=== PATIENT | male | born 1940 | race Caucasian/White ===

== ENCOUNTER → 2018-10-23 | Outpatient (CLI) | payer MEDICARE ==
--- NOTE | 2018-11-01 09:11 | REP ---
REASON FOR EXAM: Patient presents with a cavitary lesion in the right lung lower lobe. Prior CT examination of the chest from an outside institution of 09/19/2018 showed a 2.3 x 1.6 x 1.7 cm sized irregular somewhat cavitary lesion in the right lower lobe. That examination was reviewed. There are no prior PET/CTs for comparison. After the intravenous administration of 9.1 millicuries of FDG 18 triplane whole body PET/CT was performed from the skull base to the midthigh. The nodule seen in the right lower lobe is intensely hypermetabolic with average SUV values over +16. There are no other areas of abnormal hypermetabolic activity seen in the neck, chest, abdomen, or pelvis. There is evidence of cholelithiasis. This was seen on today's CT and the prior CT. IMPRESSION: The cavitary lesion seen in the right lung lower lobe is hypermetabolic. Infectious versus neoplastic etiology correlate clinically. Electronically Signed by Ubaldo Alejo DO 11/01/2018 11:12 A
== END ==
LOC: M PLARAD 11:53
PROVIDERS: ATTEND Internal Medicine Pulmonary Disease
DX: R91.1 Solitary pulmonary nodule (principal)
CPT/HCPCS: 78815; A9552

== ENCOUNTER → 2018-11-07 | Outpatient (REF) | payer MEDICARE ==
[2018-11-07 18:41] LABS: INR 0.98; PROTHROMBIN TIME 13.1 SECONDS (12.1-14.4)
== END ==
LOC: M LAB REF 17:24
PROVIDERS: ATTEND Internal Medicine Pulmonary Disease
DX: R91.1 Solitary pulmonary nodule (principal)

== ENCOUNTER → 2018-11-25 | Outpatient (CLI) | payer MEDICARE ==
[~2018-11-25] MED LIST: ACET-907 PO; ALEV220T22 PO; AMLO5TAB6 PO; ANOR1AER INH; ATOR1TAB19 PO; ECOT81TA5 PO; FINA5TAB2 PO; GLIM1TAB PO; LIDOCAINE 1% MDV 20ML VIAL As Ordered ONE; LISI-542 PO; METF500T4 PO; VITMTA PO
--- NOTE | 2018-11-25 12:36 | REP ---
POST-BIOPSY CHEST: Post biopsy chest performed status post right lung biopsy. Bibasilar fibroatelectatic changes are noted. There is no pneumothorax status post right lung biopsy. Electronically Signed by Kirit Sommer MD 11/25/2018 04:22 P
--- NOTE | 2018-11-25 17:01 | REP ---
CT-guided right lower lobe lung biopsy The procedure was performed under the direct supervision of Dr. Sommer. The patient has a history of a cavitary lesion in the right lower lung which showed hypermetabolic activity on a previous PET scan dated 10/23/2018. The risks and benefits of the procedure were explained to the patient and informed consent was obtained. The right lower lobe lung nodule was localized using CT guidance. The skin was prepped and draped in a sterile fashion. 1% lidocaine was used as a local anesthetic. Using CT guidance a 19/20 gauge coaxial needle biopsy system was inserted and advanced into the nodule. Five core biopsy samples were obtained and sent to lab. The patient tolerated the procedure well and there were no immediate complications. After the appropriate amount of monitored convalescence the patient was discharged from the department. Reviewed by CHAI Moreno 11/25/2018 04:37 P Electronically Signed by Kirit Sommer MD 11/25/2018 04:53 P
== END ==
LOC: M RADPRO 08:48
PROVIDERS: ATTEND Internal Medicine Pulmonary Disease
DX: C34.91 Malignant neoplasm of unspecified part of right bronchus or lung (principal)

== ENCOUNTER → 2018-12-09 | Outpatient (REF) | payer OTHER ==
[~2018-12-09] MED LIST changes: +FISH120016 PO; -LIDOCAINE 1% MDV 20ML VIAL As Ordered ONE
== END ==
LOC: M LAB LCGH 09:56
PROVIDERS: ATTEND Surgery
DX: Z85.01 Personal history of malignant neoplasm of esophagus (principal)

== ENCOUNTER → 2019-01-16 | Outpatient (CLI) | payer MEDICARE ==
[~2019-01-16] MED LIST changes: +FOLI1TAB11 PO; -GLIM1TAB PO; +GLIM1TAB4 PO; +ISOVUE-370 76% 100ML VIAL (Q9967) As Ordered ONE; +LISI10TA4 PO; +METF-791 PO; -METF500T4 PO; +ONDA8TAB10 PO; +PERCOCET PO; +PROC10TA4 PO; +VARE05TA PO
--- NOTE | 2019-01-17 04:58 | REP ---
Clinical: Malignancy. Technique: Axial contrast enhanced images from the thoracic inlet to the upper abdomen with coronal and sagittal re-formations. Comparison: 09/19/2018, 09/01/2016, 10/20/2013. Findings: The irregular cavitary lesion in the posterior medial right lower lobe has increased in size from prior examinations and currently measures 2.7 cm maximal diameter of (previously measuring 1.7 cm maximal diameter at the same level on 09/19/2018 and is relatively new as compared to 09/01/2016) and again demonstrates irregular wall with small mural soft tissue component. Adjacent small cystic changes and fibroatelectatic changes appear slightly more prominent than prior examination. A 12 mm noncalcified nodule in the posteromedial left lower lobe is identified and remains relatively stable compared to recent prior examination but has obviously increased when compared through 10/20/2013. Chronic interstitial changes along with emphysematous changes including scattered bullae again noted. No effusion. No pneumothorax. Tracheobronchial tree is patent. Reactive mediastinal and right hilar lymph nodes measure up to approximately 17 mm. Mediastinum demonstrates atherosclerotic changes to the thoracic aorta and coronary arteries without aortic aneurysm/dissection or cardiomegaly. No pericardial effusion. Impression: 1. Irregular cavitary lesion in the right lower lobe from prior examination. 2. A 12 mm noncalcified nodule in the left lower lobe progressively increased through 2013. 3. Chronic interstitial changes and emphysematous disease similar to prior examination. No new lesions identified. Electronically Signed by Dionte Mars MD 01/17/2019 04:49 A
== END ==
LOC: M RAD 10:03
PROVIDERS: ATTEND Thoracic Surgery (Cardiothoracic Vascular Surgery)
DX: C34.31 Malignant neoplasm of lower lobe, right bronchus or lung (principal)
CPT/HCPCS: 71260; Q9967

== ENCOUNTER 2019-01-30 08:03 | Day surgery (SDC) | payer MEDICARE ==
[~2019-01-30] VITALS: Ht 177.8 cm; Wt 113.9 kg
[~2019-01-30 08:03] MED LIST changes: -FOLI1TAB11 PO; +GLIM1TAB PO; -GLIM1TAB4 PO; -ISOVUE-370 76% 100ML VIAL (Q9967) As Ordered ONE; -METF-791 PO; +METF500T4 PO; -ONDA8TAB10 PO; -PERCOCET PO; -PROC10TA4 PO
[2019-01-30] MEDS ORDERED: PROPOFOL 200 MG/20 ML VIAL As Ordered ONE (08:35)
[2019-01-30] MEDS ORDERED: LIDOCAINE 2% INJ 100 MG/5 ML SDV (FOR ANES.) As Ordered ONE (08:36)
[2019-01-30] MEDS ORDERED: ROCURONIUM BROMIDE 50 MG/5 ML VIAL As Ordered ONE (08:36)
[2019-01-30] MEDS ORDERED: ONDANSETRON 4MG/2ML VIAL (J2405) As Ordered ONE (08:36)
[2019-01-30] MEDS ORDERED: fentaNYL 100 MCG/2 ML INJECTION (J3010) As Ordered ONE (10:11)
[2019-01-30] MEDS ORDERED: LIDOCAINE 1% SDV INJ 30 ML VIAL As Ordered ONE ×2 (10:20→10:23)
[2019-01-30] MEDS ORDERED: LIDOCAINE VISCOUS 2% SOLN 15ML UDC As Ordered ONE (10:20)
[2019-01-30] MEDS ORDERED: EPINEPHrine 1MG/10ML SYRINGE 1.5IN As Ordered ONE (10:20)
[2019-01-30] MEDS ORDERED: THROMBIN SOLN 20,000 UNITS KIT As Ordered ONE (10:20)
[2019-01-30] MEDS ORDERED: LIDOCAINE 4% TOPICAL SOLN 50 ML BTL As Ordered ONE (10:23)
[2019-01-30] MEDS ORDERED: CETACAINE SPRAY 5GM As Ordered ONE (10:34)
[2019-01-30] MEDS ORDERED: SUGAMMADEX SODIUM 500 MG/5 ML VIAL (BRIDION) As Ordered ONE (10:55)
[2019-01-30] MEDS ORDERED: LR 1,000 ML IV SCH (12:00)
[2019-01-30] MEDS ORDERED: ONDANSETRON 4MG/2ML VIAL (J2405) IV PRN (12:00)
[2019-01-30] MEDS ORDERED: NORCO, ANEXSIA 5/325MG TABLET (HYDROcodone/ACETAMINOPHEN) PO PRN (12:00)
[2019-01-30] MEDS ORDERED: fentaNYL 100 MCG/2 ML INJECTION (J3010) IV PRN (12:00)
--- NOTE | 2019-01-30 12:59 | REP ---
REASON FOR EXAM: Status post bronchoscopy. COMPARISON: 11/25/2018. The technique utilized in obtaining the radiograph has magnified the cardiac silhouette and accentuated the interstitial markings. There is cardiomegaly accentuated by technique. There is evidence of fibrotic change accentuated by technique. There is no evidence of pneumothorax. There are no new abnormal opacities. The pleural angles are sharp. The osseous structures are stable and intact. IMPRESSION: Chronic changes as described above. No evidence of acute cardiopulmonary disease. Electronically Signed by Ubaldo Alejo DO 01/30/2019 01:18 P
[2019-01-30 13:00] VITALS: BP 140/68
[2019-01-31] MEDS ORDERED: LR 1,000 ML IV ONE (07:00)
--- NOTE | 2019-02-01 15:29 | RO ---
DATE OF PROCEDURE: 01/30/2019 PREOPERATIVE DIAGNOSIS: PET positive left hilar lymph node, unknown etiology. POSTOPERATIVE DIAGNOSIS: PET positive left hilar lymph node, unknown etiology. PROCEDURE: Bronchoscopy with airway inspection and biopsy of left hilar lymph node by endobronchial ultrasound (EBUS). SURGEON: Dr. Kirby Ocampo INTERMODAL TRUCK DRIVER: Dr. Ethel Case ANESTHESIA: General. PROCEDURE NOTE: Procedure explained and consent obtained. [place] procedure was followed. The patient was intubated and sedation and pain management was handled by anesthesia. Following intubation, the bronchoscope was introduced into the trachea. Left and right lungs were examined. There was a minimum of secretions. There was striations and pitting. The airways had the appearance of mild bronchiectasis. There was mild extrinsic compression of the right middle lobe. He had no endobronchial lesions. Following inspection, the bronchoscope was withdrawn and the EBUS scope was introduced. A left hilar lymph node was identified and multiple biopsies were taken of the lymph node. Following this, the subcarinal region was inspected. There is a small, less than 1 cm lymph node identified on the right side of the hilum. On the left side, there was a structure seen. It was pulsatile but did not appear to be lymph node. Neither of these findings were biopsied. The EBUS scope was then withdrawn. The conventional bronchoscope was introduced and general airway inspection was done. Hemostasis was observed. The bronchoscope was then withdrawn. Postprocedure x-ray pending. FINDINGS: 1. Striations and pitting. 2. No endobronchial lesions. 3. Mild extrinsic compression of the right middle lobe. 4. Appearance of mild bronchiectasis. SPECIMENS: Left hilar lymph node fine needle aspirate sent to cytology. [facility] [place] [facility]
== END 2019-01-30 13:05 | disposition home or self-care (01) ==
LOC: M SDC 08:03
PROVIDERS: ATTEND Internal Medicine Pulmonary Disease
DX: C34.31 Malignant neoplasm of lower lobe, right bronchus or lung (principal); R06.00 Dyspnea, unspecified; R05 Cough; J43.2 Centrilobular emphysema; F17.218 Nicotine dependence, cigarettes, with other nicotine-induced disorders; I10 Essential (primary) hypertension; E78.5 Hyperlipidemia, unspecified; G47.30 Sleep apnea, unspecified; Z79.899 Other long term (current) drug therapy
CPT/HCPCS: 31652; 71045; 88173; 88305; 88313; J2405; J3010

== ENCOUNTER → 2019-02-20 | Outpatient (CLI) | payer MEDICARE ==
[~2019-02-20] MED LIST changes: +METF-791 PO; -METF500T4 PO; +PERCOCET PO
[2019-02-20 12:01] LABS: HEMATOCRIT 43.4 % (42.0-52.0); HEMOGLOBIN 14.5 g/dl (13.5-17.5); MEAN CORPUSCULAR HEMOGLOBIN 32.5 pg (27.0-33.0); MEAN CORPUSCULAR HGB CONC 33.4 g/dl (32.0-36.5); MEAN CORPUSCULAR VOLUME 97.3 fl (80.0-96.0); PLATELET COUNT, AUTOMATED 343 10^3/uL (150-450); RED BLOOD COUNT 4.46 10^6/uL (4.30-6.10); WHITE BLOOD COUNT 10.6 10^3/uL (4.0-10.0)
[2019-02-20 12:11] LABS: INR 0.99; PARTIAL THROMBOPLASTIN TIME 29.8 SECONDS (25.0-38.4); PROTHROMBIN TIME 12.8 SECONDS (11.8-14.0)
[2019-02-20 12:24] LABS: CALCIUM LEVEL 9.6 MG/DL (8.8-10.2); CREATININE FOR GFR 1.57 MG/DL (0.70-1.30); GLOMERULAR FILTRATION RATE 45.8 (>42); POTASSIUM SERUM 4.6 MEQ/L (3.5-5.1)
[2019-02-20 12:36] LABS: ABG BASE EXCESS -3.5 (-2.0-2.0); ABG HCO3 21.3 MEQ/L (22.0-26.0); ABG O2 SATURATION 96.9 % (95.0-99.0); ABG PARTIAL PRESSURE CO2 37.9 mmHg (35.0-45.0); ABG PARTIAL PRESSURE O2 84.7 mmHg (75.0-100.0); ABG STANDARD HCO3 21.5 MEQ/L (22.0-26.0); ABG TOTAL CO2 22.4 MEQ/L (23.0-31.0); ABG pH (ARTERIAL) 7.367 UNITS (7.350-7.450)
[2019-02-20 13:18] LABS: APPEARANCE, URINE HAZY (CLEAR); BACTERIA, URINE AUTO NEGATIVE (NEGATIVE); BILIRUBIN, URINE AUTO NEGATIVE (NEGATIVE); BLOOD, URINE BLOOD 1+ (NEGATIVE); COLOR, URINE YELLOW (YELLOW); GLUCOSE, URINE (UA) AUTO NEGATIVE (NEGATIVE); KETONE, URINE AUTO NEGATIVE (NEGATIVE); LEUKOCYTE ESTERASE, URINE AUTO NEGATIVE (NEGATIVE); NITRITE, URINE AUTO NEGATIVE (NEGATIVE); PROTEIN, URINE AUTO NEGATIVE (NEGATIVE); RBC, URINE AUTO 5 /HPF (0-3); SPECIFIC GRAVITY URINE AUTO 1.014 (1.002-1.035); SQUAMOUS EPITHELIAL CELL UR AU 0 /HPF (0-6); UROBILINOGEN, URINE AUTO 0.2 mg/dL (0.0-2.0); WBC, URINE AUTO 1 /HPF (0-3)
--- NOTE | 2019-02-20 15:08 | REP ---
Chest x-ray: Two views. History: Lung carcinoma. Comparison study January 30, 2019. Findings: Lungs are somewhat hyperinflated as before. The recently identified cavitary nodule in the right lower lobe is posterior and medial and the superimposed on the right hilus on the frontal view. It is not visualized on the lateral radiograph. Lung winters are otherwise clear. Pleural angles are sharp. Heart is not enlarged. The aorta somewhat tortuous. There is an old healed rib fracture on the left. Impression: Hyperinflation. Otherwise no acute disease visible radiographically. Electronically Signed by Nathan Ramirez MD 02/20/2019 03:20 P
--- NOTE | 2019-02-21 16:47 | ECGEPIP ---
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 Electronically Signed on 02-21-2019 16:47:15 EDT by Trey Hendricks
== END ==
LOC: M ADMPAT 11:18
PROVIDERS: ATTEND Thoracic Surgery (Cardiothoracic Vascular Surgery)
DX: R91.8 Other nonspecific abnormal finding of lung field (principal); C34.90 Malignant neoplasm of unspecified part of unspecified bronchus or lung

== ENCOUNTER 2019-02-24 06:50 | Inpatient (IN) | payer MEDICARE ==
[~2019-02-24] VITALS: Ht 180.3 cm; Wt 113.2 kg
[2019-02-24] VITALS (7 sets, daily range): BP systolic 89–161; BP diastolic 45–65
[~2019-02-24 06:50] MED LIST changes: +LR 1,000 ML IV ONE; +MUPIROCIN 2% OINT 22 GM TUBE TOP ONE; -PERCOCET PO
[2019-02-24] MEDS ORDERED: CETACAINE SPRAY 5GM As Ordered ONE (06:52)
[2019-02-24] MEDS ORDERED: BUPIVACAINE HCL 0.5% 10 ML VIAL As Ordered ONE (06:52)
[2019-02-24] MEDS ORDERED: BUPIVACAINE LIPOSOME/PF 1.3% 20ML VIAL (13.3MG/ML)(EXPAREL)(C9290 PER1MG) As Ordered ONE (06:53)
[2019-02-24] MEDS ORDERED: STERILE TALC POWDER 3GM VIAL As Ordered ONE (06:53)
[2019-02-24] MEDS ORDERED: fentaNYL 250 MCG/5 ML INJECTION (J3010) As Ordered ONE (06:59)
[2019-02-24] MEDS ORDERED: MIDAZOLAM INJ 2 MG/2 ML VIAL (J2250) As Ordered ONE ×2 (07:00→08:15)
[2019-02-24] MEDS ORDERED: dexameTHASONE 4 MG/ML 1ML VIAL (J1100) As Ordered ONE (07:03)
[2019-02-24] MEDS ORDERED: LIDOCAINE 2% INJ 100 MG/5 ML SDV (FOR ANES.) As Ordered ONE (07:03)
[2019-02-24] MEDS ORDERED: ROCURONIUM BROMIDE 50 MG/5 ML VIAL As Ordered ONE ×3 (07:03→11:24)
[2019-02-24] MEDS ORDERED: ONDANSETRON 4MG/2ML VIAL (J2405) As Ordered ONE (07:03)
[2019-02-24] MEDS ORDERED: PROPOFOL 200 MG/20 ML VIAL As Ordered ONE (07:03)
[2019-02-24] MEDS ORDERED: BUPIVACAINE HCL 0.25% 30 ML VIAL As Ordered ONE (07:37)
[2019-02-24] MEDS ORDERED: ACETAMINOPHEN 1000MG 100ML IV BTL (OFIRMEV) (J0131 PER 10MG) As Ordered ONE (07:42)
[2019-02-24] MEDS ORDERED: fentaNYL 100 MCG/2 ML INJECTION (J3010) As Ordered ONE ×2 (08:15→14:13)
[2019-02-24] MEDS: MIDAZOLAM INJ 2 MG/2 ML VIAL (J2250) IV SCH ×2 (08:20→08:22)
[2019-02-24] MEDS: fentaNYL 100 MCG/2 ML INJECTION (J3010) IV SCH ×2 (08:20→08:22)
[2019-02-24] MEDS: MOM 30ML SUSPENSION UDC PO SCH (09:00)
[2019-02-24] MEDS: GLIMEPIRIDE 1 MG TABLET PO SCH (09:00)
[2019-02-24] MEDS ORDERED: ePHEDrine SULFATE 25 MG/5 ML(5MG/ML) SYRINGE As Ordered ONE (10:14)
[2019-02-24] MEDS ORDERED: SUGAMMADEX SODIUM 500 MG/5 ML VIAL (BRIDION) As Ordered ONE (10:29)
[2019-02-24] MEDS ORDERED: KETOROLAC 60 MG/2 ML VIAL (J1885) As Ordered ONE (10:36)
[2019-02-24] MEDS ORDERED: METOCLOPRAMIDE INJ 10MG/2ML VIAL (J2765) IV PRN (11:00)
[2019-02-24] MEDS ORDERED: WALLBOXKEY XX PRN (11:00)
[2019-02-24] MEDS ORDERED: ONDANSETRON 4MG/2ML VIAL (J2405) IV PRN ×3 (11:00→14:30)
[2019-02-24] MEDS ORDERED: EPIDURAL/PCA KEYS XX PRN (11:00)
[2019-02-24] MEDS ORDERED: diphenhydrAMINE INJ 50MG/ML VIAL (J1200) IV PRN (11:00)
[2019-02-24] MEDS ORDERED: NALOXONE INJ 0.4 MG/1 ML VIAL (J2310) IV PRN (11:00)
[2019-02-24] MEDS ORDERED: PHENYLephrine HCL 500 MCG/5 ML (100MCG/ML) SYRINGE (J2370) As Ordered ONE (12:34)
[2019-02-24] MEDS ORDERED: NORCO, ANEXSIA 5/325MG TABLET (HYDROcodone/ACETAMINOPHEN) PO PRN (13:45)
[2019-02-24] MEDS ORDERED: BISACODYL 10 MG SUPP PR PRN (13:45)
[2019-02-24] MEDS ORDERED: PERCOCET 5MG/325MG TAB PO PRN ×3 (13:45→14:30)
[2019-02-24] MEDS ORDERED: LEVALBUTEROL 1.25 MG/0.5 ML CONCENTRATE NEB NEB PRN (13:45)
[2019-02-24] MEDS: LEVALBUTEROL 1.25 MG/0.5 ML CONCENTRATE NEB NEB SCH ×2 (14:00→19:20)
[2019-02-24] MEDS: fentaNYL 100 MCG/2 ML INJECTION (J3010) IV PRN ×4 (14:13→14:28)
[2019-02-24 14:19] LABS: ABG BASE EXCESS -3.1 (-2.0-2.0); ABG HCO3 23.3 MEQ/L (22.0-26.0); ABG O2 SATURATION 97.7 % (95.0-99.0); ABG PARTIAL PRESSURE CO2 46.8 mmHg (35.0-45.0); ABG PARTIAL PRESSURE O2 103.6 mmHg (75.0-100.0); ABG STANDARD HCO3 21.9 MEQ/L (22.0-26.0); ABG TOTAL CO2 24.7 MEQ/L (23.0-31.0); ABG pH (ARTERIAL) 7.315 UNITS (7.350-7.450)
[2019-02-24] MEDS: FENTANYL/BUPIVACAINE/NACL BAG 250 ML EPIDURAL SCH (14:20)
[2019-02-24 14:26] LABS: BASO % 0.2 % (0.0-1.0); EOS % 0.1 % (0.0-3.0); HEMATOCRIT 41.4 % (42.0-52.0); HEMOGLOBIN 13.9 g/dl (13.5-17.5); LYMPH # 0.8 10^3/uL (1.5-5.0); LYMPH % 4.7 % (24.0-44.0); MEAN CORPUSCULAR HEMOGLOBIN 33.8 pg (27.0-33.0); MEAN CORPUSCULAR HGB CONC 33.6 g/dl (32.0-36.5); MEAN CORPUSCULAR VOLUME 100.7 fl (80.0-96.0); MONO # 0.6 10^3/uL (0.0-0.8); MONO % 3.5 % (0.0-5.0); NEUTROPHILS # 14.6 10^3/uL (1.5-8.5); NEUTROPHILS % 90.9 % (36.0-66.0); PLATELET COUNT, AUTOMATED 318 10^3/uL (150-450); RED BLOOD COUNT 4.11 10^6/uL (4.30-6.10); WHITE BLOOD COUNT 16.1 10^3/uL (4.0-10.0)
[2019-02-24] MEDS ORDERED: LR 1,000 ML IV SCH (14:30)
[2019-02-24] MEDS: KCL 20MEQ IN D5/NS 1000ML 1,000 ML IV SCH (14:45)
[2019-02-24 15:07] LABS: CALCIUM LEVEL 8.5 MG/DL (8.8-10.2); CREATININE FOR GFR 2.03 MG/DL (0.70-1.30); GLOMERULAR FILTRATION RATE 34.1 (>42)
[2019-02-24 15:09] LABS: POTASSIUM SERUM 5.8 MEQ/L (3.5-5.1)
[2019-02-24] MEDS ORDERED: NS 500 ML IV SCH (15:30)
[2019-02-24] MEDS: ceFAZolin SOD 1 GM in D5W MINI-BAG PLUS 50 ML IV SCH (16:52)
[2019-02-24] MEDS: FINASTERIDE 5 MG TAB PO SCH (16:53)
[2019-02-24] MEDS: ASPIRIN 81 MG ENTERIC TAB PO SCH (16:53)
[2019-02-24] MEDS: PANTOPRAZOLE 40MG TAB (PROTONIX) PO SCH (16:53)
[2019-02-24] MEDS: ATORVASTATIN 10 MG TAB PO SCH (16:53)
[2019-02-24] MEDS: MULTIVITAMINS/MINERALS THERAP 1 TAB PO SCH (16:53)
[2019-02-24] MEDS: amLODIPine 5 MG TAB PO SCH (16:54)
[2019-02-24] MEDS: LISINOPRIL 10 MG TAB PO SCH (16:54)
--- NOTE | 2019-02-24 17:00 | REP ---
PORTABLE CHEST: AP portable view of the chest was performed. Patient has had right lower lobectomy. Two right chest tubes are in place. There is a tiny right apical pneumothorax. Mild linear atelectatic change is seen in the right lung base. Mild peripheral opacities seen in the right lung base. There are some patchy opacity in the left lung base representing atelectasis or infiltrate. There appears to be a small amount of left pleural fluid or thickening. Heart and mediastinum appear magnified. Electronically Signed by Kirit Sommer MD 02/26/2019 09:32 A
--- NOTE | 2019-02-24 17:48 | RO ---
DATE OF PROCEDURE: 02/24/2019 PREPROCEDURE DIAGNOSIS: Adenocarcinoma right lower lobe. POSTPROCEDURE DIAGNOSIS: Adenocarcinoma right lower lobe. SURGEON: Dr. Marcelino Murillo. PROCEDURE: Right lower lobectomy, mediastinal node dissection and lymphadenectomy, 5 level rib block with bronchoscopy and extensive lysis of adhesions. FINDINGS: The upper lobe was adherent to the chest wall and all of the adhesions had been taken down. The patient is quite obese and the dissection was hindered by the peribronchial and periarterial fat. Therefore the operation took longer than planned, approximately 4 hours. The bronchoscopy revealed normal branch and tracheobronchial tree with a few secretions. I did note that the right middle lobe bronchus was fish mouth. During the procedure I specifically looked for bulky nodes in and around the bronchus and I could not find any. The thoracotomy revealed the above adhesions. He had an apical basilar segmental tumor. The apical basilar segment arterial branch bifurcated into an upper lobe branch and a lower lone branch with the lower lobe branch being taken in development of the fissure. PROCEDURE: Under satisfactory general anesthesia a single lumen tube endotracheal division. Bronchoscope was placed in the tracheobronchial tree with the above results. Noted at the middle lobe bronchus was fish mouth. However there was scant secretions. The patient was then turned into the left lateral decubitus position and prepped and draped in the usual sterile fashion. Posterior lateral incision was made and carried down to the subcutaneous tissue. Areas anterior were sparred. He had copious amount of fat which was really quite fibrotic rather than soft. The chest was entered at the 5th intercostal space. The scopes were placed within the chest cavity and the fissure could be seen and the interspace planned. The major fissure was complete where as the minor fissure was dense adhesions. Some of these adhesions were taken down to expose the confluence fissure to aid in the identification of the location of the pulmonary artery. Dissection was started in the major fissure at the confluences of fissures and the pulmonary artery was eventually found. This was dissected proximally until the apical basilar segmental artery could be found. The middle lobe medial bilateral branch was also noted. Once finding the apical basilar segmental branch it was further dissected with the bifurcated two branches soon after its initial take off from the interlobar pulmonary artery. It was clear that one of these braches went to the upper lobe and the other went to the apical basilar segment. The posterior mediastinal pleura was then dissected which again was quite fibrotic and sticky. The junction of the bronchus intermedius and right upper lobe bronchus was found and noted. A right arm clamp was placed between the two branches as described above and penetrated the posterior mediastinal port. A vessel loop was then placed and the fissure was completed between the two branches. An axillary incision was made in the lower anterior chest suitable for a chest tube placement and a vascular jazmyn was placed through that incision and directed to the lower lobe pulmonary artery which was divided by use of motorized stapling device. Likewise the apical basilar segmental branch was also divided. These were the only arterial branches that were noted. The mediastinal pleural anteriorly was then dissected along with the pulmonary ligament. The inferior pulmonary vein was noted and carefully dissected and surrounded with a vessel loop and divide by use of a vascular stapler. This then left the remainder of the major fissure. The middle lobe bronchus was carefully noted as noted above, I did not find any large nodes that were compressing it. The fissure was therefore completed after diving the inferior pulmonary vein. Care of course taken to avoid the middle lobe pulmonary vein. There was a lot of bronchial tissue with inflammation all around it. The bronchus was cleared but not skeletonized of surrounding tissue. It was then divided by use of a TA60 4.8 bronchial stapler. This was tested at 30 cm of water and it was found to be intact. None the less the bronchus was oversewn with interrupted 3-0 Vicryl sutures, approximately 8 in number. Attention was then turned to the superior mediastinum where the mediastinal pleural was incised. The entire jo-ann mass was cleared but use of electrocautery and harmonic scalpel. Again because of the fibrotic fat tissue and the copious amount of fibrotic fat tissue this was a more than usual length undertaking. Most of the fat pad was removed along with numerous nodes. They did look anthracotic. The bed of the superior mediastinum bordered by the superior vena cava, the aorta and the trachea was then carefully observed for lymphatic leaks which were none. The jo-ann dissection cavity was then filled with Tisseel glue. A five level rib block was then instilled consisting of Marcaine and Exparel. Tube chest was replaced a #24 curve and a #24 straight anteriorly and posteriorly. These were secured to the chest wall and the ribs were reapproximated by use of pericostal sutures, after reinflating the lung and placing Tisseel glue on parenchymal leaks that were noted during testing of the main bronchus. The plastyma dorsi was enclosed with running 0 Vicryl suture. There was a slip of trapezius which was noted and closed. Subcutaneous tissue was closed with running 3-0 Vicryl suture and the skin was closed with running 3-0 Monocryl subcuticular suture. The patient tolerated the procedure well and left the operating room in satisfactory condition.
[2019-02-24] MEDS: DOCUSATE SODIUM 100 MG CAP PO SCH (20:30)
[2019-02-24] MEDS: HEPARIN SOD (PORCINE) 5000 UNITS/ML VIAL SC SCH (20:30)
[2019-02-24] MEDS: VARENICLINE 0.5 MG TABLET PO SCH (20:30)
[2019-02-25] VITALS (21 sets, daily range): BP systolic 94–169; BP diastolic 46–67
[2019-02-25] MEDS: ceFAZolin SOD 1 GM in D5W MINI-BAG PLUS 50 ML IV SCH ×3 (00:23→17:02)
[2019-02-25] MEDS: LEVALBUTEROL 1.25 MG/0.5 ML CONCENTRATE NEB NEB SCH ×4 (02:00→20:27)
[2019-02-25] MEDS: KCL 20MEQ IN D5/NS 1000ML 1,000 ML IV SCH (05:20)
[2019-02-25 05:39] LABS: BASO % 0.1 % (0.0-1.0); EOS % 0.1 % (0.0-3.0); HEMATOCRIT 37.6 % (42.0-52.0); HEMOGLOBIN 12.8 g/dl (13.5-17.5); LYMPH # 1.6 10^3/uL (1.5-5.0); LYMPH % 10.4 % (24.0-44.0); MEAN CORPUSCULAR HEMOGLOBIN 33.9 pg (27.0-33.0); MEAN CORPUSCULAR VOLUME 99.5 fl (80.0-96.0); MONO # 1.3 10^3/uL (0.0-0.8); MONO % 8.4 % (0.0-5.0); NEUTROPHILS # 12.1 10^3/uL (1.5-8.5); NEUTROPHILS % 80.4 % (36.0-66.0); PLATELET COUNT, AUTOMATED 283 10^3/uL (150-450); RED BLOOD COUNT 3.78 10^6/uL (4.30-6.10); WHITE BLOOD COUNT 15.1 10^3/uL (4.0-10.0)
[2019-02-25 06:23] LABS: ABG BASE EXCESS -3.2 (-2.0-2.0); ABG PARTIAL PRESSURE CO2 35.1 mmHg (35.0-45.0); ABG PARTIAL PRESSURE O2 84.4 mmHg (75.0-100.0); ABG STANDARD HCO3 21.8 MEQ/L (22.0-26.0); ABG pH (ARTERIAL) 7.394 UNITS (7.350-7.450)
[2019-02-25 07:17] LABS: CALCIUM LEVEL 8.3 MG/DL (8.8-10.2); CREATININE FOR GFR 1.77 MG/DL (0.70-1.30); GLOMERULAR FILTRATION RATE 39.9 (>42); POTASSIUM SERUM 4.8 MEQ/L (3.5-5.1)
[2019-02-25] MEDS: MOM 30ML SUSPENSION UDC PO SCH (09:00)
[2019-02-25] MEDS: LISINOPRIL 10 MG TAB PO SCH (09:00)
[2019-02-25] MEDS: amLODIPine 5 MG TAB PO SCH (09:00)
[2019-02-25] MEDS: ACETAMINOPHEN TAB 650MG DOSE (2X325MG) PO PRN ×2 (09:46→21:16)
[2019-02-25] MEDS: MULTIVITAMINS/MINERALS THERAP 1 TAB PO SCH (09:47)
[2019-02-25] MEDS: ATORVASTATIN 10 MG TAB PO SCH (09:47)
[2019-02-25] MEDS: PANTOPRAZOLE 40MG TAB (PROTONIX) PO SCH (09:47)
[2019-02-25] MEDS: ASPIRIN 81 MG ENTERIC TAB PO SCH (09:47)
[2019-02-25] MEDS: FINASTERIDE 5 MG TAB PO SCH (09:47)
[2019-02-25] MEDS: VARENICLINE 0.5 MG TABLET PO SCH ×2 (09:47→21:16)
[2019-02-25] MEDS: DOCUSATE SODIUM 100 MG CAP PO SCH ×2 (09:47→21:16)
[2019-02-25] MEDS: GLIMEPIRIDE 1 MG TABLET PO SCH (09:47)
[2019-02-25] MEDS: metFORMIN XR 500MG TAB *GLUCOPHAGE XR PO SCH ×2 (09:47→21:16)
[2019-02-25] MEDS: HEPARIN SOD (PORCINE) 5000 UNITS/ML VIAL SC SCH ×2 (09:48→21:17)
[2019-02-25] MEDS: FENTANYL/BUPIVACAINE/NACL BAG 250 ML EPIDURAL SCH (10:39)
[2019-02-25] MEDS ORDERED: KETOROLAC 30 MG/ML VIAL (J1885) IV ONE (11:00)
[2019-02-25] MEDS ORDERED: NS 500 ML IV ONE (14:15)
--- NOTE | 2019-02-25 19:26 | REP ---
CHEST, TWO VIEWS: Two views of the chest are performed and compared to prior study of 02/24/2019. There is mild right hydropneumothorax. Two right chest tubes are again noted unchanged in position. Left basilar opacity is improved with mild residual atelectatic change. Mediastinal silhouette is grossly unchanged. Electronically Signed by Kirit Sommer MD 02/27/2019 04:36 P
[2019-02-26] VITALS (10 sets, daily range): BP systolic 114–151; BP diastolic 57–92
[2019-02-26] MEDS: ceFAZolin SOD 1 GM in D5W MINI-BAG PLUS 50 ML IV SCH ×2 (00:02→08:41)
[2019-02-26] MEDS: LEVALBUTEROL 1.25 MG/0.5 ML CONCENTRATE NEB NEB SCH ×4 (03:16→19:54)
[2019-02-26 05:21] LABS: BASO % 0.3 % (0.0-1.0); EOS % 0.1 % (0.0-3.0); HEMATOCRIT 37.7 % (42.0-52.0); HEMOGLOBIN 12.6 g/dl (13.5-17.5); MEAN CORPUSCULAR HEMOGLOBIN 33.8 pg (27.0-33.0); MEAN CORPUSCULAR HGB CONC 33.4 g/dl (32.0-36.5); MEAN CORPUSCULAR VOLUME 101.1 fl (80.0-96.0); MONO # 1.3 10^3/uL (0.0-0.8); MONO % 8.9 % (0.0-5.0); NEUTROPHILS # 11.1 10^3/uL (1.5-8.5); NEUTROPHILS % 76.1 % (36.0-66.0); PLATELET COUNT, AUTOMATED 279 10^3/uL (150-450); RED BLOOD COUNT 3.73 10^6/uL (4.30-6.10); WHITE BLOOD COUNT 14.5 10^3/uL (4.0-10.0)
[2019-02-26 05:49] LABS: CALCIUM LEVEL 8.2 MG/DL (8.8-10.2); CREATININE FOR GFR 1.63 MG/DL (0.70-1.30); GLOMERULAR FILTRATION RATE 43.9 (>42); POTASSIUM SERUM 4.9 MEQ/L (3.5-5.1)
--- NOTE | 2019-02-26 07:51 | IPN ---
DATE: 02/25/2019 This is the first postoperative day for Mr. Marlow. He has had a stable night of surgery, but he has complained of increased pain in his right shoulder. His vital signs show a maximum temperature (t-max) of 98.5 with a heart rate that ranges between 85 and 67 in a sinus rhythm, respiratory rate of 18 to 20 without the use of accessory muscles, who is 94 to 96% saturated on 2 liters nasal cannula. Blood pressure is ranging between 115/55 to 147/54. His intake and output over the past 24 hours has been recorded as 2636 in and 610 out for a positivity of 2000 mL. He has put out 135 mL out of the chest tube. He has put out 190 mL in the last 12 hours. He has a small air leak with forceful coughing. His incisional pain is well controlled and almost nonexistent. It is his shoulder that hurts the most. Because of his renal insufficiency, I am limited in the Toradol that I can give, but he is on IV Tylenol. PHYSICAL EXAMINATION: LUNGS: He has bilateral crackles, more on the right than the left during inspiration and expiration. Most of these clear with coughing. Percussion note is full to the diaphragm. CARDIAC EXAM: Without murmurs, clicks, gallops or rubs. I cannot feel his point of maximum impulse (PMI) through his obesity. S1, S2 are normal. ABDOMEN: Distended and tympanitic with hypoactive bowel sounds. There is no hepatomegaly. No costovertebral angle tenderness. EXTREMITIES: Show trace pretibial edema. No calf tenderness. No differential swelling of the upper extremities. SKIN: Warm, dry and perfused without cyanosis or mottling, including that of the nail beds and knees. NECK: Supple. There is no jugular venous distention. No subcutaneous emphysema. Trachea is midline. MOUTH: Shows his mucous membranes to be pink and moist. Lips and commissures without lesions. There is no thrush. EYES: Show his pupils to be equal and reactive. Extraocular motion intact. Sclerae anicteric. NEUROLOGIC: Shows II through XII intact with gross motor and gross sensation intact. Gait is not tested. PSYCHIATRIC: Shows him to be awake and alert, oriented times three with appropriate mood and affect and conversational. His white count today is 15.1 with a hemoglobin and hematocrit of 12.8 and 37.6, down from 13.9 and 41.4 yesterday in the recovery room, secondary to hemodilution. Platelet count is 283. Differential shows 80% neutrophils, 10% lymphocytes, 8% monocytes. There are no immature forms and no toxic granulations. Electrolytes are normal with a BUN and creatinine of 27 and 1.77, down from a creatinine yesterday in the recovery room of 2.03. Glucose is 161 with a calcium of 8.3. Blood gas today shows a pH of 7.39, PCO2 of 35, PO2 of 84 on 2 liters nasal cannula with a base excess of -3.2. His chest x-ray today shows the lung fully expanded to the chest wall. Costophrenic angles are sharp. He does appear to have an air-fluid level on the right chest at the right base. I do not see any evidence of pneumothorax. There are no infiltrates. There is obligate volume loss of the right lung secondary to lobectomy. IMPRESSION: 1. Postoperative day #1 status post right lower lobectomy. 2. Diabetes. 3. Hypertension. 4. Obesity. 5. Clinical stage I A lung cancer, final pathology pending. 6. Former tobacco abuse, having stopped two weeks before surgery. 7. Stage III renal insufficiency. PLAN/DISCUSSION: I will transfer him to the progressive care unit (PCU) today. We will keep his chest tube on suction. The shoulder pain is rather problematic, but it should dissipate in the next few days. As noted above, he is on IV Tylenol. I did give him one dose of Toradol today of 50 mg IV.
[2019-02-26] MEDS: MOM 30ML SUSPENSION UDC PO SCH (08:41)
[2019-02-26] MEDS: HEPARIN SOD (PORCINE) 5000 UNITS/ML VIAL SC SCH ×2 (08:42→20:22)
[2019-02-26] MEDS: DOCUSATE SODIUM 100 MG CAP PO SCH ×2 (08:42→20:22)
[2019-02-26] MEDS: GLIMEPIRIDE 1 MG TABLET PO SCH (08:42)
[2019-02-26] MEDS: amLODIPine 5 MG TAB PO SCH (08:43)
[2019-02-26] MEDS: FINASTERIDE 5 MG TAB PO SCH (08:43)
[2019-02-26] MEDS: VARENICLINE 0.5 MG TABLET PO SCH ×2 (08:43→20:22)
[2019-02-26] MEDS: ATORVASTATIN 10 MG TAB PO SCH (08:44)
[2019-02-26] MEDS: PANTOPRAZOLE 40MG TAB (PROTONIX) PO SCH (08:44)
[2019-02-26] MEDS: ASPIRIN 81 MG ENTERIC TAB PO SCH (08:44)
[2019-02-26] MEDS: metFORMIN XR 500MG TAB *GLUCOPHAGE XR PO SCH ×2 (08:44→20:22)
[2019-02-26] MEDS: MULTIVITAMINS/MINERALS THERAP 1 TAB PO SCH (08:44)
[2019-02-26] MEDS: LISINOPRIL 10 MG TAB PO SCH (08:44)
--- NOTE | 2019-02-26 09:34 | IPN ---
DATE: 02/26/2019 This is now the second postoperative day for Mr. Marlow. His shoulder pain is vastly improved, however he did have an incisional pain last night which responded to a bolus of the epidural. He is sitting up comfortably in a chair. He has had a bowel movement and flatus. His vital signs show a T-max of 99.2 with a heart rate that ranges between 88 and 81 and is sinus rhythm, respiratory rate of 18 to 20 without the use of accessory muscles, who is 95 to 94% saturated on 2 liters nasal cannula and whose blood pressure is ranging between 114/57 to 128/60. His intake and output over the past 24 hours has been recorded as 2862 in and 2645 out for a positivity of 217 mL. He has put out 590 mL from the chest tube and today there is no air leak. Weight today is 116.8 kilos compared to 113 kilos preoperatively. His urine output yesterday totaled 5 and he has had 650 mL in urine output since midnight, and 150 mL from the chest tube. PHYSICAL EXAMINATION: Shows equal breath sounds on either side with some rales and very faint wheezes on the right side. Percussion note is full to the diaphragm. Cardiac exam is without murmurs, clicks, gallops or rubs. I cannot feel his point of maximum impulse (PMI). S1 and S2 are normal. Abdomen is soft, nontender. Bowel sounds are positive. There is no hepatomegaly. No costovertebral angle tenderness. He is tympanitic and slightly distended. Extremities show no pretibial edema. No calf tenderness. No differential swelling of the upper extremities. Skin is warm, dry and perfused without cyanosis or mottling, including that of the nail beds and knees. Neck is supple. There is no jugular venous distention. No subcutaneous emphysema. Trachea is midline. Mouth shows his mucous membranes to be pink and moist. Lips and commissures without lesions. There is no thrush. Eyes sow his pupils to be equal and reactive. Extraocular motion intact. Sclera nonicteric. Neuro shows II through XII intact along with gross motor and gross sensation intact. Gait is not tested. Psychiatric shows him to be awake and alert, oriented times three with appropriate mood and affect and conversational. His white count today is 14.5 with a hemoglobin and hematocrit of 12.6 and 37.7, unchanged from yesterday with a platelet count of 270 and stable. Differential shows 76% neutrophils, 14% lymphocytes, 8% monocytes. There are no immature forms and no toxic granulations. His electrolytes were normal today with a BUN and creatinine of 26 and 1.63, down slightly from 27 and 1.77 yesterday. BUN and creatinine are back to baseline. His glucose is 132 with a calcium of 8.2. There are no blood gases on him today. His chest x-ray today shows his lung fully expanded to the chest wall. There are no infiltrates. He has obligate volume loss on the right lung secondary to the lobectomy. The air fluid that was there yesterday is resolved. I have gone over the preliminary pathology with Dr. Rosa of pathology. The mediastinal nodes are not yet back, however he does have one peribronchial lymph node which is positive for metastatic carcinoma, so at this point he has a minimum of N1 disease, which translates to stage II. We will await the mediastinal nodes for final staging. 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 IMPRESSION: 1. Postoperative day 2 status post right lower lobectomy. 2. Adenosquamous carcinoma right lower lobe. 3. Diabetes. 4. Hypertension. 5. Obesity. 6. Former tobacco abuse, having stopped two weeks prior to surgery. 7. Stage III renal insufficiency. PLAN/DISCUSSION: I will leave his chest tubes in today. I will refrain from diuresing as his intake and output are equal. I am gratified he has no air leak. Transfer orders have already been written to the PCU when there is a bed available.
[2019-02-26] MEDS: FENTANYL/BUPIVACAINE/NACL BAG 250 ML EPIDURAL SCH ×2 (13:13→14:00)
--- NOTE | 2019-02-26 16:56 | REP ---
TWO VIEW CHEST: Two views of the chest are performed and compared to prior study of 02/25/2019. Two right chest tubes remain unchanged in position. Mild parenchymal opacity inferiorly on the right is stable. There appears to be a small amount of right pleural effusion. I do not definitely see an air fluid level on today's exam and there may have been resolution of the right pneumothorax. Heart and mediastinum are unchanged. There may be a small left effusion with blunting of the left costophrenic angle. There are adjacent streaky left basilar parenchymal opacities similar to the prior study. Electronically Signed by Kirit Sommer MD 02/27/2019 05:00 P
[2019-02-27] VITALS: BP 132/60
[2019-02-27] MEDS: LEVALBUTEROL 1.25 MG/0.5 ML CONCENTRATE NEB NEB SCH ×4 (02:00→19:38)
[2019-02-27 04:11] VITALS: BP 123/58
[2019-02-27 05:29] LABS: BASO # 0.1 10^3/uL (0.0-0.2); BASO % 0.3 % (0.0-1.0); EOS # 0.2 10^3/uL (0.0-0.5); EOS % 1.5 % (0.0-3.0); HEMATOCRIT 40.3 % (42.0-52.0); HEMOGLOBIN 13.1 g/dl (13.5-17.5); LYMPH # 3.2 10^3/uL (1.5-5.0); LYMPH % 21.4 % (24.0-44.0); MEAN CORPUSCULAR HEMOGLOBIN 33.2 pg (27.0-33.0); MEAN CORPUSCULAR HGB CONC 32.5 g/dl (32.0-36.5); MONO # 1.4 10^3/uL (0.0-0.8); MONO % 9.5 % (0.0-5.0); NEUTROPHILS # 9.9 10^3/uL (1.5-8.5); NEUTROPHILS % 66.4 % (36.0-66.0); PLATELET COUNT, AUTOMATED 315 10^3/uL (150-450); RED BLOOD COUNT 3.95 10^6/uL (4.30-6.10)
[2019-02-27 05:46] LABS: CALCIUM LEVEL 8.7 MG/DL (8.8-10.2); CREATININE FOR GFR 1.71 MG/DL (0.70-1.30); GLOMERULAR FILTRATION RATE 41.5 (>42); POTASSIUM SERUM 4.7 MEQ/L (3.5-5.1)
[2019-02-27] MEDS: DOCUSATE SODIUM 100 MG CAP PO SCH ×2 (09:00→21:02)
[2019-02-27] MEDS: MOM 30ML SUSPENSION UDC PO SCH (09:00)
[2019-02-27 09:04] VITALS: BP 135/61
--- NOTE | 2019-02-27 09:40 | REP ---
CHEST TWO VIEWS: Two views of the chest are performed and compared to a prior study of 02/26/2019. Two right chest tubes remain in place. There is a small right apical pneumothorax. There is mild right chest wall emphysema. Scattered interstitial densities and mild pleural thickening on the right is stable. There is improvement of mild left basilar pleural and parenchymal opacity. Heart and mediastinum are unchanged. Electronically Signed by Kirit Sommer MD 02/27/2019 05:34 P
[2019-02-27] MEDS: LISINOPRIL 10 MG TAB PO SCH (09:50)
[2019-02-27] MEDS: FINASTERIDE 5 MG TAB PO SCH (09:50)
[2019-02-27] MEDS: PANTOPRAZOLE 40MG TAB (PROTONIX) PO SCH (09:50)
[2019-02-27] MEDS: amLODIPine 5 MG TAB PO SCH (09:51)
[2019-02-27] MEDS: MULTIVITAMINS/MINERALS THERAP 1 TAB PO SCH (09:51)
[2019-02-27] MEDS: metFORMIN XR 500MG TAB *GLUCOPHAGE XR PO SCH ×2 (09:51→21:03)
[2019-02-27] MEDS: GLIMEPIRIDE 1 MG TABLET PO SCH (09:51)
[2019-02-27] MEDS: ATORVASTATIN 10 MG TAB PO SCH (09:51)
[2019-02-27] MEDS: ASPIRIN 81 MG ENTERIC TAB PO SCH (09:51)
[2019-02-27] MEDS: VARENICLINE 0.5 MG TABLET PO SCH ×2 (09:51→21:02)
[2019-02-27] MEDS: HEPARIN SOD (PORCINE) 5000 UNITS/ML VIAL SC SCH ×2 (09:52→21:02)
[2019-02-27 12:00] VITALS: BP 138/73
[2019-02-27] MEDS: FENTANYL/BUPIVACAINE/NACL BAG 250 ML EPIDURAL SCH (14:24)
[2019-02-27 16:00] VITALS: BP 122/58
[2019-02-27 20:00] VITALS: BP 132/62
--- NOTE | 2019-02-27 23:15 | IPN ---
DATE: 02/27/2019 This is now the third postoperative day for Mr. Marlow. He is doing much better with shoulder pain almost completely resolved. Incisional pain is also being well controlled with the epidural. He is sitting up comfortably and further having flatus and a bowel movement. His vital signs show a T-max of 97.6 with a heart rate that ranges between 78 and 88 in a sinus rhythm, respiratory rate of 18 to 20 without the use of accessory muscles who is 98 to 97% saturated on 2 liters nasal cannula. His blood pressure is ranging between 138/73 to 122/58. His intake and output for the past 24 hours has been recorded as 1450 in and 2865 out for a negativity of 1400 mL. He has put 455 mL out his chest tube. There is no air leak. Urine output has been 2410. He weighs 118.8 kg compared to 116.8 kg yesterday. PHYSICAL EXAMINATION: He has some rales and rhonchi in the right hemithorax. Percussion notes are full to the diaphragm. Left side shows normal vesicular sounds. Cardiac exam is without murmurs, clicks, gallops or rubs. I cannot feel his point of maximal impulse (PMI). S1 and S2 are normal. Abdomen is tympanitic and distended, but nontender. There is no costovertebral angle (CVA) tenderness. No hepatomegaly that I can appreciate under his obesity. Extremities show no pretibial edema. No calf tenderness. No differential swelling of the upper extremities. Skin is warm, dry and perfused without cyanosis or mottling including that of the nail beds and the knees. Neck is supple. There is no jugular venous distention. No subcutaneous emphysema. Trachea is midline. Mouth shows his mucous membranes to be pink and moist. Lips and commissures without lesions. There is no thrush. Eyes show his pupils to be equal and reactive. Extraocular muscles intact. Sclera anicteric. Neuro shows II through XII intact. Gross motor and gross sensation intact. Gait is not tested. Psychiatric shows him to be awake, alert and oriented times three with appropriate mood, affect and conversational. His white count today is 15.0 with hemoglobin and hematocrit of 13.1 and 40.3 secondary to hemoconcentration. It is compared to 12.6 and 37.7 yesterday. Platelet count is 315 and stable, and differential shows 66% neutrophils, 21% lymphocytes and 9% monocytes. There are no immature forms. No toxic granulations. His electrolytes are normal with a BUN and creatinine of 26 and 1.71, which is at his baseline. Glucose is 126 with a calcium of 8.7. His chest x-ray today shows his lung fully expanded to the chest wall. Chest tubes are in good place. There is volume loss of the right hemithorax. I see no infiltrates. Lateral film shows no infiltrates. I have gone over pathology with Dr. Rosa of pathology. Yesterday he was noted to have a positive N1 node. His mediastinum nodes today are reported as negative. He therefore has [id number] or stage 2b disease. His maximum tumor dimension is 3.5 cm. IMPRESSION: 1. 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 2. Postoperative day #3, status post right lower lobectomy. 3. Adenosquamous carcinoma right lower lobe. 4. Diabetes. 5. Hypertension. 6. Obesity. 7. Stage III renal insufficiency. 8. Former tobacco abuse, having stopped 2 weeks prior to surgery. PLAN AND DISCUSSION: I will again refrain from diuresing him as he looks to be spontaneously diuresing. Will keep his chest tubes in and on suction. I will have already informed him of the pathology results and that we will recommend adjuvant chemotherapy. I will present him at the tumor conference next week.
[2019-02-28] VITALS: BP 111/57
[2019-02-28 04:00] VITALS: BP 117/61
[2019-02-28 05:59] LABS: BASO # 0.1 10^3/uL (0.0-0.2); BASO % 0.4 % (0.0-1.0); EOS # 0.3 10^3/uL (0.0-0.5); EOS % 1.9 % (0.0-3.0); HEMATOCRIT 34.9 % (42.0-52.0); HEMOGLOBIN 11.7 g/dl (13.5-17.5); LYMPH # 2.8 10^3/uL (1.5-5.0); LYMPH % 19.8 % (24.0-44.0); MEAN CORPUSCULAR HGB CONC 33.5 g/dl (32.0-36.5); MEAN CORPUSCULAR VOLUME 101.5 fl (80.0-96.0); MONO # 1.7 10^3/uL (0.0-0.8); MONO % 12.3 % (0.0-5.0); NEUTROPHILS # 9.1 10^3/uL (1.5-8.5); NEUTROPHILS % 64.7 % (36.0-66.0); PLATELET COUNT, AUTOMATED 299 10^3/uL (150-450); RED BLOOD COUNT 3.44 10^6/uL (4.30-6.10)
[2019-02-28 06:19] LABS: CALCIUM LEVEL 8.4 MG/DL (8.8-10.2); CREATININE FOR GFR 1.64 MG/DL (0.70-1.30); GLOMERULAR FILTRATION RATE 43.6 (>42); POTASSIUM SERUM 4.3 MEQ/L (3.5-5.1)
[2019-02-28] MEDS: LEVALBUTEROL 1.25 MG/0.5 ML CONCENTRATE NEB NEB SCH ×4 (07:16→20:54)
[2019-02-28 08:00] VITALS: BP 107/53
[2019-02-28] MEDS: MOM 30ML SUSPENSION UDC PO SCH (09:00)
[2019-02-28] MEDS ORDERED: SLF 3 ML SYR IV PRN (09:00)
--- NOTE | 2019-02-28 09:09 | REP ---
CHEST, TWO VIEWS: Two views of the chest are performed. COMPARISON: 02/27/2019. The very small right apical pneumothorax has decreased with minimal residual right apical pneumothorax. Two right chest tubes remain in place. Bilateral pleural and parenchymal opacities are stable. Heart and mediastinum are unchanged. Electronically Signed by Kirit Sommer MD 02/28/2019 06:26 P
[2019-02-28] MEDS: ASPIRIN 81 MG ENTERIC TAB PO SCH (10:18)
[2019-02-28] MEDS: MULTIVITAMINS/MINERALS THERAP 1 TAB PO SCH (10:18)
[2019-02-28] MEDS: DOCUSATE SODIUM 100 MG CAP PO SCH ×2 (10:18→21:00)
[2019-02-28] MEDS: FINASTERIDE 5 MG TAB PO SCH (10:18)
[2019-02-28] MEDS: ATORVASTATIN 10 MG TAB PO SCH (10:18)
[2019-02-28] MEDS: VARENICLINE 0.5 MG TABLET PO SCH ×2 (10:18→21:08)
[2019-02-28] MEDS: amLODIPine 5 MG TAB PO SCH (10:19)
[2019-02-28] MEDS: LISINOPRIL 10 MG TAB PO SCH (10:20)
[2019-02-28] MEDS: GLIMEPIRIDE 1 MG TABLET PO SCH (10:20)
[2019-02-28] MEDS: metFORMIN XR 500MG TAB *GLUCOPHAGE XR PO SCH ×2 (10:20→21:08)
[2019-02-28] MEDS: PANTOPRAZOLE 40MG TAB (PROTONIX) PO SCH (10:20)
[2019-02-28] MEDS: HEPARIN SOD (PORCINE) 5000 UNITS/ML VIAL SC SCH ×2 (10:21→21:09)
[2019-02-28 12:00] VITALS: BP 116/58
[2019-02-28] MEDS: SLF 3 ML SYR IV SCH ×2 (14:41→21:09)
[2019-02-28] MEDS: FENTANYL/BUPIVACAINE/NACL BAG 250 ML EPIDURAL SCH (14:41)
[2019-02-28 16:00] VITALS: BP 141/65
[2019-02-28 20:00] VITALS: BP 119/59
[2019-03-01] VITALS: BP 130/57
[2019-03-01] MEDS: LEVALBUTEROL 1.25 MG/0.5 ML CONCENTRATE NEB NEB SCH ×4 (02:00→19:23)
[2019-03-01 04:00] VITALS: BP 132/64
[2019-03-01] MEDS: SLF 3 ML SYR IV SCH ×3 (05:11→22:00)
[2019-03-01 05:30] LABS: BASO # 0.1 10^3/uL (0.0-0.2); BASO % 0.5 % (0.0-1.0); EOS # 0.3 10^3/uL (0.0-0.5); EOS % 2.6 % (0.0-3.0); HEMATOCRIT 36.2 % (42.0-52.0); HEMOGLOBIN 12.1 g/dl (13.5-17.5); LYMPH % 23.2 % (24.0-44.0); MEAN CORPUSCULAR HEMOGLOBIN 33.2 pg (27.0-33.0); MEAN CORPUSCULAR HGB CONC 33.4 g/dl (32.0-36.5); MEAN CORPUSCULAR VOLUME 99.5 fl (80.0-96.0); MONO # 1.5 10^3/uL (0.0-0.8); MONO % 11.4 % (0.0-5.0); NEUTROPHILS # 7.8 10^3/uL (1.5-8.5); NEUTROPHILS % 61.1 % (36.0-66.0); PLATELET COUNT, AUTOMATED 359 10^3/uL (150-450); RED BLOOD COUNT 3.64 10^6/uL (4.30-6.10); WHITE BLOOD COUNT 12.8 10^3/uL (4.0-10.0)
[2019-03-01 05:58] LABS: CALCIUM LEVEL 8.4 MG/DL (8.8-10.2); CREATININE FOR GFR 1.52 MG/DL (0.70-1.30); GLOMERULAR FILTRATION RATE 47.6 (>42); POTASSIUM SERUM 4.7 MEQ/L (3.5-5.1)
--- NOTE | 2019-03-01 08:23 | IPN ---
DATE OF SERVICE: 02/28/2019 This is now the fourth postoperative day for Mr. Marlow. He is very comfortable, and his shoulder pain is much better. He has had minimal out of the chest tube, and there is no air leak. His intake and output over the past 24 hours has been recorded as 540 in and 1765 out for a negativity of 1200 mL. He has put 90 mL out his chest tube, and there is no air leak. On physical examination, he has equal breath sounds on either side with some coarse rales and rhonchi on the right side, which clear with coughing. Percussion notes are full to the diaphragm. Cardiac examination is without murmurs, clicks, gallops, or rubs. I cannot feel his point of maximal impulse (PMI). S1 and S2 are normal. Abdomen is soft and nontender. Bowel sounds are positive. There is no costovertebral angle (CVA) tenderness. No hepatomegaly. He is still tympanitic. Extremities show no pretibial edema. No calf tenderness. No differential swelling of the upper extremities. Skin is warm, dry, and perfused without cyanosis or mottling, including that of the nail beds and the knees. Neck is supple. There is no jugular venous distention. No subcutaneous emphysema. Trachea is midline. Mouth shows his mucous membranes to be pink and moist. Lips and commissures without lesions. There is no thrush. Eyes show his pupils to be equal and reactive. Extraocular muscles intact. Sclerae anicteric. Neurologic shows II-XII intact, along with gross motor and gross sensation intact. Gait is not tested. Psychiatric shows him to be awake and alert and oriented times three with appropriate mood and affect and conversational. His chest x-ray today shows his lung fully expanded to the chest wall. I see no infiltrates. He has obligate volume loss from the lobectomy. His white count today is 14.0 down from 15.0 with a hemoglobin and hematocrit of 11.7 and 34.9 down from 13.1 and 40.3. Platelet count is 299 with a differential that shows 64% neutrophils, 19% lymphocytes, and 12% monocytes. There are no immature forms. No toxic granulations. His electrolytes are normal with a BUN and creatinine of 29 and 1.64, which is his baseline with a glucose of 99 and a calcium of 8.4. IMPRESSION: 1. Postoperative day #4, status post right lower lobectomy. 2. Stage IIB adenocarcinoma of right lower lobe with one positive peribronchial node, [id number]. 3. Adenosquamous carcinoma of the right lower lobe. 4. Diabetes. 5. Hypertension. 6. Obesity. 7. Stage III renal insufficiency. 8. Former tobacco abuse, having stopped 2 weeks prior to surgery. PLAN AND DISCUSSION: I will discontinue his chest tube from suctions today. If all goes well, I will remove his chest tube in the a.m. and probably discharge him on Sunday. Will wean the epidural tomorrow.
--- NOTE | 2019-03-01 09:49 | REP ---
CHEST, TWO VIEWS: Two views of the chest are performed and compared to prior study of 02/28/2019. Two right chest tubes remain in place. I do not see a definite pneumothorax on today's exam. Mild diffuse pleural and parenchymal opacity on the right is stable. Mild left pleural and parenchymal opacity in the left base is also stable. Heart and mediastinum are unchanged. Electronically Signed by Kirit Sommer MD 03/02/2019 05:48 P
[2019-03-01] MEDS: PANTOPRAZOLE 40MG TAB (PROTONIX) PO SCH (10:12)
[2019-03-01] MEDS: MULTIVITAMINS/MINERALS THERAP 1 TAB PO SCH (10:12)
[2019-03-01] MEDS: metFORMIN XR 500MG TAB *GLUCOPHAGE XR PO SCH ×2 (10:13→21:46)
[2019-03-01] MEDS: FINASTERIDE 5 MG TAB PO SCH (10:13)
[2019-03-01] MEDS: ASPIRIN 81 MG ENTERIC TAB PO SCH (10:13)
[2019-03-01] MEDS: DOCUSATE SODIUM 100 MG CAP PO SCH ×2 (10:13→21:00)
[2019-03-01] MEDS: VARENICLINE 0.5 MG TABLET PO SCH ×2 (10:13→21:46)
[2019-03-01] MEDS: ATORVASTATIN 10 MG TAB PO SCH (10:13)
[2019-03-01] MEDS: LISINOPRIL 10 MG TAB PO SCH (10:14)
[2019-03-01] MEDS: GLIMEPIRIDE 1 MG TABLET PO SCH (10:14)
[2019-03-01] MEDS: HEPARIN SOD (PORCINE) 5000 UNITS/ML VIAL SC SCH ×2 (10:15→21:47)
[2019-03-01] MEDS: MOM 30ML SUSPENSION UDC PO SCH (10:15)
[2019-03-01] MEDS: amLODIPine 5 MG TAB PO SCH (10:15)
[2019-03-01 12:00] VITALS: BP 114/59
--- NOTE | 2019-03-01 14:24 | IPN ---
DATE: 03/01/2019 This is now the 5th postoperative day for Mr. Marlow. His pain is being well controlled at the epidural site and there is no air leak. He has put minimal out of the chest tube and I will remove it today. His vital signs show a T-max of 97.7 with a heart rate that ranges between 78 and 89 in a sinus rhythm, respiratory rate of 18 to 20 without the use of accessory muscles who is 95 to 96% saturated on 2 liters nasal cannula. Blood pressure is ranging between 107/53 to 130/57. His intake and outtake over the past 24 hours has been recorded as 420 in and 2095 out for a negativity of 1600 mL. He has put out 2000 mL in urine and 95 mL from the chest tube without an air leak. His weight today is 114.9 kg compared to 118.8 kg two days ago. PHYSICAL EXAMINATION: His lungs show equal breath sounds on either side. Percussion note is full to the diaphragm. He has some coarse rhonchi on the right which clear with coughing. Cardiac exam is without murmurs, clicks, gallops or rubs. I cannot feel his point of maximal impulse (PMI). S1 and S2 are normal. Abdomen is soft and nontender, but slightly distended. Bowel sounds are positive. There is no hepatomegaly or costovertebral angle (CVA) tenderness. Extremities show no pretibial edema. No calf tenderness. No differential swelling of the upper extremities. Skin is warm, dry and perfused without cyanosis or mottling including that of the nail beds and the knees. Neck is supple. There is no jugular venous distention. No subcutaneous emphysema. Trachea is midline. Mouth shows his mucous membranes to be pink and moist. Lips and commissures without lesions. No thrush. Eyes show his pupils to be equal, reactive. Extraocular muscles intact. Sclera anicteric. Neuro shows II through XII intact. Gross motor and gross sensation intact. Gait is also intact. Psychiatric shows him to be awake, alert and oriented times three with appropriate mood, affect and conversational. His white count today is down to 12.8 with a hemoglobin and hematocrit of 12.1 and 36.2, slightly up from yesterday of 11.7 and 34.9, secondary to hemoconcentration. Platelet count is 359 and stable and differential shows 61% neutrophils, 23% lymphocytes, 7% monocytes. There are no immature forms. No toxic granulations. His electrolytes are normal but BUN and creatinine are 27 and 1.52 which is improved over the last few days, but still at his baseline. His glucose is 98 with a calcium of 8.4. Chest x-ray shows his lung fully expanded to the chest wall. I see no infiltrates and costophrenic angles are sharp. Chest tubes are in good place. IMPRESSION: 1. Stage II B adenocarcinoma right lower lobe with one positive peribronchial node, adenosquamous carcinoma, moderately differentiated, [id number]. 2. Postoperative day #5, status post right lower lobe lobectomy. 3. Diabetes. 4. Hypertension. 5. Obesity. 6. Stage III renal insufficiency. 7. Former tobacco abuser having stopped 2 weeks prior to surgery. PLAN AND DISCUSSION: I will discontinue his chest tubes today. We will wean the epidural, discontinue the Downing. Will convert him over to oral pain analgesia and if all goes well plan for discharge in the morning.
[2019-03-01 16:00] VITALS: BP 113/85
[2019-03-01 20:00] VITALS: BP 130/76
[2019-03-01 23:59] VITALS: BP 123/56
[2019-03-02] MEDS: LEVALBUTEROL 1.25 MG/0.5 ML CONCENTRATE NEB NEB SCH ×2 (01:30→07:14)
[2019-03-02 04:00] VITALS: BP 128/58
[2019-03-02] MEDS: SLF 3 ML SYR IV SCH (05:00)
[2019-03-02 05:32] LABS: BASO # 0.1 10^3/uL (0.0-0.2); BASO % 0.4 % (0.0-1.0); EOS # 0.4 10^3/uL (0.0-0.5); EOS % 2.9 % (0.0-3.0); HEMATOCRIT 36.8 % (42.0-52.0); HEMOGLOBIN 12.2 g/dl (13.5-17.5); LYMPH # 2.7 10^3/uL (1.5-5.0); LYMPH % 22.5 % (24.0-44.0); MEAN CORPUSCULAR HEMOGLOBIN 32.8 pg (27.0-33.0); MEAN CORPUSCULAR HGB CONC 33.2 g/dl (32.0-36.5); MEAN CORPUSCULAR VOLUME 98.9 fl (80.0-96.0); MONO # 1.4 10^3/uL (0.0-0.8); MONO % 11.6 % (0.0-5.0); NEUTROPHILS # 7.3 10^3/uL (1.5-8.5); PLATELET COUNT, AUTOMATED 389 10^3/uL (150-450); RED BLOOD COUNT 3.72 10^6/uL (4.30-6.10)
[2019-03-02 05:51] LABS: CALCIUM LEVEL 8.5 MG/DL (8.8-10.2); CREATININE FOR GFR 1.35 MG/DL (0.70-1.30); GLOMERULAR FILTRATION RATE 54.6 (>42); POTASSIUM SERUM 4.2 MEQ/L (3.5-5.1)
[2019-03-02 08:00] VITALS: BP 144/76
[2019-03-02] MEDS: DOCUSATE SODIUM 100 MG CAP PO SCH (09:00)
[2019-03-02] MEDS: MOM 30ML SUSPENSION UDC PO SCH (09:00)
[2019-03-02] MEDS ORDERED: PERCOCET PO (09:13)
--- NOTE | 2019-03-02 09:18 | REP ---
CHEST, TWO VIEWS: Two views of the chest are performed and compared to prior study of 03/01/2019. There is removal of two right chest tubes. I do not see a definite right pneumothorax. Bilateral pleural and parenchymal opacities are unchanged. Cardiomediastinal silhouette is unchanged. IMPRESSION: Removal of two right chest tubes, otherwise stable. Electronically Signed by Kirit Sommer MD 03/02/2019 05:56 P
[2019-03-02] MEDS: VARENICLINE 0.5 MG TABLET PO SCH (09:26)
[2019-03-02] MEDS: ATORVASTATIN 10 MG TAB PO SCH (09:27)
[2019-03-02] MEDS: metFORMIN XR 500MG TAB *GLUCOPHAGE XR PO SCH (09:27)
[2019-03-02] MEDS: ASPIRIN 81 MG ENTERIC TAB PO SCH (09:27)
[2019-03-02] MEDS: GLIMEPIRIDE 1 MG TABLET PO SCH (09:27)
[2019-03-02 09:28] VITALS: BP 128/58
[2019-03-02] MEDS: PANTOPRAZOLE 40MG TAB (PROTONIX) PO SCH (09:28)
[2019-03-02] MEDS: MULTIVITAMINS/MINERALS THERAP 1 TAB PO SCH (09:28)
[2019-03-02] MEDS: HEPARIN SOD (PORCINE) 5000 UNITS/ML VIAL SC SCH (09:28)
[2019-03-02] MEDS: LISINOPRIL 10 MG TAB PO SCH (09:28)
[2019-03-02] MEDS: amLODIPine 5 MG TAB PO SCH (09:28)
[2019-03-02] MEDS: FINASTERIDE 5 MG TAB PO SCH (09:28)
--- NOTE | 2019-03-03 21:55 | DSES ---
DATE OF ADMISSION: 02/24/2019 DATE OF DISCHARGE: 03/02/2019 DISCHARGE DIAGNOSES: 1. Stage IIB adenocarcinoma right lower lobe with one positive peribronchial node, adenosquamous carcinoma, moderately differentiated, [id number], postoperative day #6 status post right lower lobectomy. 2. Diabetes. 3. Hypertension. 4. Obesity. 5. Stage III renal insufficiency. 6. Former tobacco abuser, having stopped 2 weeks prior to surgery. HOSPITAL COURSE: The patient is a 78-year-old white male who had been undergoing lung cancer screening for the past 2 years, in 2017, 2017, and 2018. A new lesion was found in his right lower lobe in 2019. This was eventually biopsied and found to be adenocarcinoma. He was a current smoker of approximately 1 to 1-1/2 packs per day. Prior to his surgery, he completely quit for 2 weeks. He was judged to be a clinical stage IB carcinoma and was, therefore, taken to the operating room where he underwent a right lower lobe resection with a mediastinal node dissection. While all mediastinal nodes were negative, there was one hilar node which was positive. His tumor measured 3.5 cm in its greatest dimension and was then therefore judged to be a stage [id number]. This maps to stage IIB carcinoma. The cell type was unusual in that it showed both adeno and squamous features; therefore, being an adenosquamous carcinoma. He had a benign postoperative course with his air leak stopping approximately 2 days after surgery. His renal failure improved over the course of his hospitalization. His chest tube was removed on the fifth postoperative day after the fluid was less than 200 mL. He is being discharged today on his home medications, which include amlodipine 5 mg daily, aspirin 81 mg daily, atorvastatin 10 mg daily, finasteride 5 mg daily, glimepiride 1 mg daily, lisinopril 10 mg daily, metformin 1000 mg every morning and 500 mg every evening, multivitamins one daily, Aleve 220 mg daily twice a day as needed for pain, fish oil, Anoro Ellipta 62.5-25 one inhalation daily. He states that he has no longer any desire to smoke, and he will be taken off his Chantix. He is also being placed on Percocet 5-325 every 4 hours as needed for pain. He will return to see me in one week with a chest x-ray. His discharge hemoglobin and hematocrit are 12.2 and 36.8 with a discharge white count of 12. His electrolytes are normal with a BUN and creatinine of 23 and 1.35, which is better than his preoperative status. Calcium is 8.5.
== END 2019-03-02 12:02 | disposition home or self-care (01) | DRG 164 ==
LOC: M OR 06:50 → M ICU 16:14 → M PCU 02-27 08:56
PROVIDERS: ADMIT Thoracic Surgery (Cardiothoracic Vascular Surgery); ATTEND Thoracic Surgery (Cardiothoracic Vascular Surgery)
PROC: 07B70ZX Excision of Thorax Lymphatic, Open Approach, Diagnostic (ICD-10-PCS; 2019-02-24)
PROC: 0BNF0ZZ Release Right Lower Lung Lobe, Open Approach (ICD-10-PCS; 2019-02-24)
PROC: 0BJ08ZZ Inspection of Tracheobronchial Tree, Via Natural or Artificial Opening Endoscopic (ICD-10-PCS; 2019-02-24)
PROC: 0BBF0ZZ Excision of Right Lower Lung Lobe, Open Approach (ICD-10-PCS; principal; 2019-02-24 08:30)
DX: C34.31 Malignant neoplasm of lower lobe, right bronchus or lung (principal); C77.1 Secondary and unspecified malignant neoplasm of intrathoracic lymph nodes; E11.22 Type 2 diabetes mellitus with diabetic chronic kidney disease; N18.3 Chronic kidney disease, stage 3 (moderate); I12.9 Hypertensive chronic kidney disease with stage 1 through stage 4 chronic kidney disease, or unspecified chronic kidney disease; E66.9 Obesity, unspecified; Z87.891 Personal history of nicotine dependence; Z68.35 Body mass index [BMI] 35.0-35.9, adult; Z79.84 Long term (current) use of oral hypoglycemic drugs; Z79.899 Other long term (current) drug therapy

== ENCOUNTER → 2019-03-13 | Outpatient (CLI) | payer MEDICARE ==
[~2019-03-13] MED LIST changes: +FOLI1TAB11 PO; -LR 1,000 ML IV ONE; -MUPIROCIN 2% OINT 22 GM TUBE TOP ONE; +ONDA8TAB7 PO; +PERCOCET PO; +PROC10TA4 PO
--- NOTE | 2019-03-13 08:32 | REP ---
Chest x-ray: Three views. History: Malignant neoplasm right lower lobe. Comparison chest x-ray March 02, 2019. Findings: There is volume loss in the right hemithorax again noted. There is pleural thickening surrounding the right lung and there is blunting of the right lateral pleural angle with elevation of the right hemidiaphragm. These findings are unchanged. The previously visible extrathoracic gas is decreased. There is linear plate-like atelectasis at the left base. No new infiltrate is seen. Cardiomediastinal silhouette is unchanged. Impression: Pleural changes on the right. Discoid atelectasis left base. No new infiltrate. Electronically Signed by Nathan Ramirez MD 03/13/2019 09:28 A
== END ==
LOC: M SMT 08:02
PROVIDERS: ATTEND Thoracic Surgery (Cardiothoracic Vascular Surgery)
DX: C34.31 Malignant neoplasm of lower lobe, right bronchus or lung (principal); J98.11 Atelectasis

== ENCOUNTER → 2019-03-27 | Outpatient (CLI) | payer MEDICARE ==
[~2019-03-27] MED LIST changes: -GLIM1TAB PO; +GLIM1TAB2 PO
--- NOTE | 2019-03-27 10:20 | REP ---
Two-view chest: 03/27/2019. Indication: Dyspnea. New comparison: 03/13/2019. Findings: Compared to the most recent study, no significant changes are present. Underpneumatization of the right lung, diffuse pleural thickening and blunting of the costophrenic angle are redemonstrated. Plate-like atelectasis of the left base and cardiomediastinal silhouette are stable. No new pulmonary infiltrates are present. There is no evidence of pneumothorax. Impression: Stable exam compared to 03/13/2019. Electronically Signed by Jaguar Posadas DO 03/27/2019 10:11 A
== END ==
LOC: M SMT 08:30
PROVIDERS: ATTEND Thoracic Surgery (Cardiothoracic Vascular Surgery)
DX: Z48.3 Aftercare following surgery for neoplasm (principal); J98.11 Atelectasis

== ENCOUNTER → 2019-04-21 | Outpatient (CLI) | payer MEDICARE ==
--- NOTE | 2019-04-21 15:16 | REP ---
Chest x-ray: Two views. History: Lung cancer. Comparison chest x-ray: March 27, 2019. Findings: There is mild linear fibrosis on the left. Chronic pleural thickening is seen surrounding the right lung. There is elevation right hemidiaphragm unchanged. Lateral view shows blunting of the right posterior pleural angle unchanged. Heart is not enlarged. No new parenchymal opacities seen per Impression: Chronic volume loss and pleural thickening right hemithorax. Linear fibrosis left base. No acute findings. Electronically Signed by Nathan Ramirez MD 04/21/2019 10:55 A
== END ==
LOC: M RAD 10:00
PROVIDERS: ATTEND Internal Medicine Medical Oncology
DX: C34.90 Malignant neoplasm of unspecified part of unspecified bronchus or lung (principal)

== ENCOUNTER → 2019-04-23 | Outpatient (CLI) | payer MEDICARE ==
--- NOTE | 2019-04-23 14:04 | REP ---
VQ lung scan: History: History of pulmonary embolism. Shortness of breath. No comparison study. Technique: 1.0 mCi technetium 99m DTPA aerosol is utilized for the ventilation study and it is followed by a 5.5 mCi dose of technetium-99m MAA given intravenously for the perfusion exam. A series of eight planar images are acquired for each portion of the study. Comparison is made with today's chest x-ray. Scintigraphic findings: There is some central bronchial deposition of inspired tracer bilaterally. The right lung is smaller than the left post thoracotomy and partial pneumonectomy. There are ill-defined matched areas of deficient perfusion and ventilation posteriorly at superiorly in the left lung. No mismatched ventilation-perfusion defect is seen. Impression: Low probability scan for pulmonary embolus. Electronically Signed by Nathan Ramirez MD 04/23/2019 01:56 P
--- NOTE | 2019-04-23 16:53 | REP ---
Two-view chest: 04/23/2019. Indication: Lung carcinoma. Comparison: 2 days earlier. Findings: Compared to 2 days earlier, no significant changes are present. Right-sided pleural effusion is redemonstrated. The visualized lungs are free of airspace consolidation. Cardiomediastinal silhouette is stable. There is no pneumothorax. Impression: Stable evaluation compared to 2 days earlier. Electronically Signed by Jaguar Posadas DO 04/23/2019 04:45 P
== END ==
LOC: M RAD 12:53
PROVIDERS: ATTEND Internal Medicine Medical Oncology
DX: R06.02 Shortness of breath (principal)
CPT/HCPCS: 71046; 78582; A9540; A9567

== ENCOUNTER → 2019-06-16 | Outpatient (CLI) | payer MEDICARE ==
--- NOTE | 2019-06-16 20:49 | REPPI ---
Clinical: Malignancy . Comparison: 04/23/2019 . Technique: PA and lateral. Findings: The mediastinum and cardiac silhouette are normal. Pleuroparenchymal changes involving the right hemithorax are stable. The aerated lung winters demonstrate chronic-appearing interstitial changes without focal consolidation. No pneumothorax. The skeletal structures are intact and normal. Impression: 1. Chronic stable pleuroparenchymal changes. Electronically Signed by Dionte Mars MD 06/16/2019 08:40 P
== END ==
LOC: M PLALAB 08:17
PROVIDERS: ATTEND Thoracic Surgery (Cardiothoracic Vascular Surgery)
DX: C34.31 Malignant neoplasm of lower lobe, right bronchus or lung (principal)

== ENCOUNTER → 2019-08-13 | Outpatient (CLI) | payer MEDICARE ==
[~2019-08-13] MED LIST changes: +GASTROGRAFIN SOLUTION 30ML (Q9963) As Ordered ONE; -GLIM1TAB2 PO; +GLIM1TAB4 PO; +ISOVUE-370 76% 100ML VIAL (Q9967) As Ordered ONE; +ONDA8TAB10 PO; -ONDA8TAB7 PO
--- NOTE | 2019-08-13 13:01 | REPVR ---
PROCEDURE INFORMATION: Exam: CT Chest With Contrast Exam date and time: 08/13/2019 12:24 PM Age: 78 years old Clinical indication: Condition or disease; Lung condition and disease; Cancer of the lung; Right; Lobe, lower; Additional info: Lung CA TECHNIQUE: Imaging protocol: Computed tomography of the chest with intravenous contrast. Radiation optimization: All CT scans at this facility use at least one of these dose optimization techniques: automated exposure control; mA and/or kV adjustment per patient size (includes targeted exams where dose is matched to clinical indication); or iterative reconstruction. Contrast material: ISOVUE 370; Contrast volume: 100 ml; Contrast route: IV; COMPARISON: CT Chest with contrast 01/16/2019 10:27 AM The prior report is not available for correlation at the time of interpretation. FINDINGS: Lungs: Interval worsening in poorly defined soft tissue attenuation in the medial segment of the right lower lobe at the site of prior surgery, suggesting tumor recurrence. Biopsy is recommended for definitive tissue diagnosis. Emphysematous change and interstitial disease. Stable well-circumscribed 8 mm left lower lobe nodule. Pleural space: Interval development of small right pleural effusion. Heart: No cardiomegaly or significant pericardial effusion. Mediastinum: Prominent mediastinal epicardial fat. Aorta: Atherosclerotic plaque in the normal caliber thoracic aorta. Lymph nodes: Interval enlargement of right hilar lymph nodes in the setting of previously diagnosed cancer, including 2.4 x 2.1 cm and 2.3 x 1.4 cm lymph nodes, which currently measured 1.6 x 1.1 cm and 1.3 x 1.0 cm. Diaphragm: Asymmetric elevation of the right hemidiaphragm. Bones/joints: Mild degenerative change. IMPRESSION: 1. Interval worsening in poorly defined soft tissue attenuation in the medial segment of the right lower lobe at the site of prior surgery, suggesting tumor recurrence. Biopsy is recommended for definitive tissue diagnosis. 2. Interval enlargement of right hilar lymph nodes suggesting metastatic disease, in the setting of previously diagnosed cancer. 3. Additional findings as described above. Electronically signed by: Mehdi Berrios On 08/13/2019 13:01:08 PM
--- NOTE | 2019-08-13 13:05 | REPVR ---
PROCEDURE INFORMATION: Exam: CT Abdomen With Contrast Exam date and time: 08/13/2019 12:24 PM Age: 78 years old Clinical indication: Condition or disease; Cancer; Other: Lung; Additional info: Lung CA TECHNIQUE: Imaging protocol: Computed tomography images of the abdomen with intravenous contrast. Radiation optimization: All CT scans at this facility use at least one of these dose optimization techniques: automated exposure control; mA and/or kV adjustment per patient size (includes targeted exams where dose is matched to clinical indication); or iterative reconstruction. Contrast material: ISOVUE 370; Contrast volume: 100 ml; Contrast route: IV; COMPARISON: No relevant prior studies available. FINDINGS: Liver: Fatty infiltration of the liver. Gallbladder and bile ducts: Cholelithiasis. No biliary ductal dilatation. Pancreas: No pancreatic mass or ductal dilatation. Spleen: No splenomegaly. Adrenals: Bilateral adrenal enlargement/nodularity, suspicious for metastasis. Correlation with prior CT dated 10/20/13 is recommended to assess interval change. Kidneys and ureters: Asymmetric renal size. No hydronephrosis. Stomach and bowel: No significant small bowel dilatation. Diverticula, without pericolonic inflammation. Appendix: Normal appendix. Intraperitoneal space: No free fluid. Lymph nodes: Enlarged celiac lymph node measuring 3.0 x 1.0 x 2.1 cm. Multiple additional subcentimeter lymph nodes. Vasculature: Vascular calcification atherosclerotic plaque. No abdominal aortic aneurysm. Bones/joints: Degenerative change and disc bulging. Soft tissues: Small fat containing umbilical hernia. IMPRESSION: 1. Bilateral adrenal enlargement/nodularity, suspicious for metastasis. Correlation with prior abdominal CT dated 10/20/13 is recommended to assess interval change. 2. Enlarged celiac lymph node measuring 3.0 x 1.0 x 2.1 cm. Electronically signed by: Mehdi Berrios On 08/13/2019 13:05:28 PM
== END ==
LOC: M RAD 10:53
PROVIDERS: ATTEND Internal Medicine Medical Oncology
DX: C34.90 Malignant neoplasm of unspecified part of unspecified bronchus or lung (principal)
CPT/HCPCS: 71260; 74160; Q9963; Q9967

== ENCOUNTER → 2019-08-22 | Outpatient (CLI) | payer MEDICARE ==
[~2019-08-22] MED LIST changes: +GABA-1171 PO; -GASTROGRAFIN SOLUTION 30ML (Q9963) As Ordered ONE; -ISOVUE-370 76% 100ML VIAL (Q9967) As Ordered ONE
--- NOTE | 2019-08-22 19:17 | REP ---
ATTEMPTED BRAIN MRI: HISTORY: Lung cancer. Only sagittal T1 images could be obtained. The examination is nondiagnostic and incomplete. The sagittal images show no evidence of gross hydrocephalus or gross mass effect. No gross abnormality is seen involving the imaged portion of the cervical spine. IMPRESSION: Nondiagnostic incomplete examination showing no gross abnormalities as described above. Electronically Signed by Ubaldo Alejo DO 08/22/2019 07:32 P
== END ==
LOC: M PLARAD 08:58
PROVIDERS: ATTEND Internal Medicine Medical Oncology
DX: C34.90 Malignant neoplasm of unspecified part of unspecified bronchus or lung (principal)

== ENCOUNTER → 2019-09-01 | Outpatient (CLI) | payer MEDICARE ==
--- NOTE | 2019-09-02 09:28 | REP ---
PET/CT: HISTORY: Staging lung cancer. 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 Limited chemotherapy. COMPARISONS: Comparison PET/CT study October 23, 2018. Comparison chest CT study August 13, 2019. Comparison abdomen CT August 13, 2019. TECHNIQUE: 64 minutes following the intravenous injection of a 9.32 mCi dose of F-18 FDG, three-dimensional PET scintigraphy is acquired from the skull base to the proximal thighs. Triplanar noncontrast CT scanning is acquired through the same anatomic range for attenuation correction, and image registration with scan parameters optimized to minimize radiation exposure to the patient. PET scintigraphy and CT datasets were fused and displayed on a workstation with multiplanar and projection display capability. PET/CT FINDINGS: Head and neck soft tissues are unremarkable. There is recurrent hypermetabolic uptake in the right hilus with maximum standard uptake value 15.46 in a 1.8 cm diameter focus. There is a hypermetabolic small jo-ann focus in the right subcarinal region with maximum SUV value 4.82. There is mildly increased pleuroparenchymal uptake in the right base posteromedially. Maximum standard uptake value here is lower, 4.98. This may be post treatment and/or postobstructive change. There is a new hypermetabolic focus in the left adrenal gland, maximum SUV value 11.31. This focus measures 2.4 cm in greatest diameter and is consistent with a metastatic focus. No other hypermetabolic metastatic focus is appreciated. IMPRESSION: There is evidence of recurrent hypermetabolic uptake in the right hilus and in a right subcarinal node. No left hilar hypermetabolic uptake is seen. There is mildly hypermetabolic uptake in the right posterior pleural angle of uncertain significance. There is a presumed metastatic focus in the left adrenal gland which is new. Electronically Signed by Nathan Ramirez MD 09/02/2019 10:23 A
== END ==
LOC: M PLARAD 09:22
PROVIDERS: ATTEND Internal Medicine Medical Oncology
DX: C34.90 Malignant neoplasm of unspecified part of unspecified bronchus or lung (principal)
CPT/HCPCS: 78815; A9552

== ENCOUNTER → 2019-10-27 | Outpatient (CLI) | payer MEDICARE ==
[~2019-10-27] MED LIST changes: -METF-791 PO; +METF-838 PO
[2019-10-27 12:30] LABS: BASO % 0.3 % (0.0-1.0); EOS # 0.6 10^3/uL (0.0-0.5); EOS % 6.2 % (0.0-3.0); HEMATOCRIT 41.6 % (42.0-52.0); HEMOGLOBIN 13.8 g/dl (13.5-17.5); LYMPH # 2.4 10^3/uL (1.5-5.0); LYMPH % 24.8 % (24.0-44.0); MEAN CORPUSCULAR HEMOGLOBIN 32.9 pg (27.0-33.0); MEAN CORPUSCULAR HGB CONC 33.2 g/dl (32.0-36.5); MEAN CORPUSCULAR VOLUME 99.3 fl (80.0-96.0); MONO # 0.7 10^3/uL (0.0-0.8); MONO % 7.7 % (0.0-5.0); NEUTROPHILS # 5.8 10^3/uL (1.5-8.5); NEUTROPHILS % 60.5 % (36.0-66.0); PLATELET COUNT, AUTOMATED 311 10^3/uL (150-450); RED BLOOD COUNT 4.19 10^6/uL (4.30-6.10); WHITE BLOOD COUNT 9.6 10^3/uL (4.0-10.0)
[2019-10-27 13:05] LABS: ALBUMIN 3.5 GM/DL (3.2-5.2); BILIRUBIN,TOTAL 0.5 MG/DL (0.2-1.0); CALCIUM LEVEL 9.3 MG/DL (8.8-10.2); CREATININE FOR GFR 1.5 MG/DL (0.70-1.30); FREE T4 1.03 NG/DL (0.76-1.46); GLOMERULAR FILTRATION RATE 48.3 (>42); POTASSIUM SERUM 4.3 MEQ/L (3.5-5.1); THYROID STIMULATING HORMONE 2.86 uIU/ML (0.358-3.740); TOTAL PROTEIN 6.9 GM/DL (6.4-8.2)
== END ==
LOC: M LAB 11:54
PROVIDERS: ATTEND Internal Medicine Medical Oncology
DX: C34.90 Malignant neoplasm of unspecified part of unspecified bronchus or lung (principal); Z79.899 Other long term (current) drug therapy

== ENCOUNTER → 2020-01-13 | Outpatient (CLI) | payer MEDICARE ==
[~2020-01-13] MED LIST changes: +AMLO1TAB24 PO; -AMLO5TAB6 PO; +BUPR-69 PO; +GASTROGRAFIN SOLUTION 30ML (Q9963) As Ordered ONE; +ISOVUE-370 76% 100ML VIAL As Ordered ONE; +SYNT25TA PO
--- NOTE | 2020-03-04 09:24 | REP ---
CT OF THE CHEST WITH IV CONTRAST: Delay in reporting results from hospital computer system malfunction from malware/ ransomware. COMPARISON: Chest CT with IV contrast dated 08/13/[address] of the chest with IV contrast dated 01/16/19. FINDINGS: I suspect there is a right lower lobectomy. Please correlate with surgical history. On 01/16/19, there was a 2.7 cm cavitary lesion in the medial basilar segment of the right lower lobe. On 08/13/19, there was a soft tissue mass with spiculated margins inferomedially in the right lung that measured 6.1 cm. This mass today measures approximately 4.4 cm in greatest diameter. There is slight pleural thickening posteriorly in the right hemithorax adjacent to this mass that has also slightly decreased. Additioinally, there is a mass in the right hilus extending into the mediastinum, likely confluent lymphadenopathy. This has increased in size from 08/13/19, today maximally measuring 5.4 cm, previously measuring 2.1 cm. There is a known left lower lobe lung noncalcified nodule that today measures 11 mm. This measured 11 mm on 01/16/19 and 11 mm on 08/13/19 and 6 mm on 10/20/13. There are no other lung masses or nodules. No other adenopathy. The thoracic aorta is unremarkable. Cardiac size normal. There is no pericardial effusion. In the upper abdomen, the visualized hepatic parenchyma is homogeneous. There is a ring-shaped 13 mm gallbladder calculus near the gallbladder neck. This is unchanged. There is no biliary duct dilatation. The visualized areas of the pancreas and spleen are unremarkable. There is a large 3.6 cm left adrenal nodule and a small 1.0 cm right adrenal nodule. On a PET scan dated 09/01/19 there was a hypermetabolic uptake in the left adrenal nodule. There was nonhypermetabolic uptake in the right adrenal gland. IMPRESSION: Suspect right lower lobectomy. Spiculated mass and pleural thickening inferomedially in the remaining right lung, as discussed above. Enlarging right hilar confluent nodes now extending into the mediastinum. Stable left lower lobe lung nodule. Hypermetabolic left adrenal mass. Nonhypermetabolic right adrenal nodule. Gallbladder calculus. The study today is performed with IV contrast. However, there was leakage from the intravenous catheter during the initial injection. The injection was stopped and the catheter was readjusted and the scan was repeated. There were no complications with the repeat scan. FLOR
--- NOTE | 2020-03-04 09:25 | REP ---
CT OF THE ABDOMEN AND PELVIS WITH IV AND BOWEL CONTRAST: Delay in reporting results from hospital computer system malfunction from malware/ ransomware. COMPARISON: 08/13/19. There is also a comparison PET scan dated 09/01/19. FINDINGS: The hepatic parenchyma is homogeneous. No hepatic masses are identified. There is a ring-shaped gallbladder calculus near the gallbladder neck, unchanged. There is no gallbladder wall distention. No biliary duct distention. The pancreas and spleen are normal size and unremarkable. There is a 16 mm right adrenal nodule. This nodule demonstrated no hypermetabolic activity on the comparison PET scan and is unchanged in size. There is a mass at the lower pole of the left adrenal, unchanged. This mass demonstrates hypermetabolic activity on the comparison PET scan. There is an enlarged celiac node and there are several nonenlarged celiac nodes. These nodes do not demonstrates hypermetabolic activity on the comparison PET scan. The kidneys are unremarkable except for diffuse renal cortical atrophy bilaterally. The abdominal aorta is unremarkable. There is no periaortic adenopathy or mass. The bowel loops are unremarkable except for sigmoid colon diverticula. This is unchanged. There is no CT evidence of diverticulitis. There is no ascites. PELVIS: The appendix is unremarkable. There is no ascites. There is no adenopathy. The bladder is unremarkable. There are no lytic, blastic or destructive skeletal changes. There is degenerative disc disease throughout the lumbar spine. IMPRESSION: Left adrenal mass that demonstrated hypermetabolic uptake on the comparison PET scan., Enlarged celiac node that demonstrates no hypermetabolic activity on the comparison PET scan. This is unchanged. Moderate bilateral renal cortical atrophy. This is unchanged. Gallbladder calculus, unchanged. Diverticulosis, unchanged. Right adrenal nodule that demonstrated no hypermetabolic activity on the comparison PET scan. MTDD
== END ==
LOC: M RAD 14:00
PROVIDERS: ATTEND Internal Medicine Medical Oncology
DX: R91.8 Other nonspecific abnormal finding of lung field (principal); Z85.118 Personal history of other malignant neoplasm of bronchus and lung; Z90.2 Acquired absence of lung [part of]; K80.20 Calculus of gallbladder without cholecystitis without obstruction
CPT/HCPCS: 71260; 74177; Q9963; Q9967

== ENCOUNTER → 2020-04-19 | Outpatient (CLI) | payer MEDICARE ==
[~2020-04-19] MED LIST changes: -GASTROGRAFIN SOLUTION 30ML (Q9963) As Ordered ONE; -ISOVUE-370 76% 100ML VIAL As Ordered ONE
--- NOTE | 2020-04-19 18:12 | REPVR ---
PROCEDURE INFORMATION: Exam: CT Chest Without Contrast Exam date and time: 04/19/2020 5:40 PM Age: 79 years old Clinical indication: Condition or disease; Lung condition and disease; Cancer of the lung; Right; Unspecified; Prior surgery; Surgery date: 6+ months; Additional info: [facility] TECHNIQUE: Imaging protocol: Computed tomography of the chest without contrast. 3D rendering (Not supervised by radiologist): MIP and/or 3D reconstructed images were created by the technologist. Radiation optimization: All CT scans at this facility use at least one of these dose optimization techniques: automated exposure control; mA and/or kV adjustment per patient size (includes targeted exams where dose is matched to clinical indication); or iterative reconstruction. COMPARISON: CT Chest with contrast 01/13/2020 2:02 PM FINDINGS: Lungs: Coarse infiltrates demonstrated in the right lower lung zone status post right lower lobectomy, new in comparison to the prior study of 01/13/2020. Clinical correlation to exclude acute infection suggested. Stable noncalcified left lower lobe nodule measuring 10 mm. Stable large bulla in the lingular lobe and smaller blebs demonstrated bilaterally in the upper lung zones. There is interval enlargement of a mass in the medial aspect of the right mid and lower lung zone measuring 7.8 x 7.3 x 7.9 cm resulting in infiltration and occlusion of the right mainstem bronchus. Segmental bronchi to the upper and lower lobes poorly visualized suggesting occlusion. Pleural space: Unremarkable. No pneumothorax. No pleural effusion. Heart: There is mild atherosclerotic calcification of the coronary arteries. Pulmonary arteries: There is enlargement of the central pulmonary arteries, findings which can be associated with pulmonary arterial hypertension which should be correlated clinically. Aorta: There is mild atherosclerosis in the thoracic aorta. Lymph nodes: Right hilar lymphadenopathy confluent with the lung mass on the right with a visible dominant lymph node at the level of the rehan measures 1.8 cm maximally. Several smaller mediastinal lymph nodes are demonstrated as well possibly metastatic. Gallbladder and bile ducts: Cholelithiasis and contracted gallbladder. Adrenals: Left adrenal mass redemonstrated known to be malignant based on prior PET imaging of 09/01/2019. Small right adrenal adenoma measures 1.4 cm. Bones/joints: Unremarkable. No acute fracture. Soft tissues: Unremarkable. Other findings: Volume loss in the right hemithorax. IMPRESSION: 1. Coarse infiltrates demonstrated in the right lower lung zone status post right lower lobectomy, new in comparison to the prior study of 01/13/2020. Clinical correlation to exclude acute infection suggested. 2. Stable noncalcified left lower lobe nodule measuring 10 mm. 3. There is interval enlargement of a mass in the medial aspect of the right mid and lower lung zone measuring 7.8 x 7.3 x 7.9 cm resulting in infiltration and occlusion of the right mainstem bronchus. Segmental bronchi to the upper and lower lobes poorly visualized suggesting occlusion. 4. Right hilar lymphadenopathy confluent with the lung mass on the right with a visible dominant lymph node at the level of the rehan measures 1.8 cm maximally. Several smaller mediastinal lymph nodes are demonstrated as well possibly metastatic. 5. There is enlargement of the central pulmonary arteries, findings which can be associated with pulmonary arterial hypertension which should be correlated clinically. 6. Left adrenal mass redemonstrated known to be malignant based on prior PET imaging of 09/01/2019. COMMENTS: Consistent with the [employer]'s Incidental Findings Committee white paper (J Am Dawson Radiol 2017): For any incidental adrenal lesion greater than 1 cm but less than 4 cm classified in this report as benign, likely benign, or containing fat (including classification as an adenoma or myelolipoma), no follow-up imaging is recommended per consensus recommendations based on imaging criteria. Further lab evaluation could be pursued if warranted based on clinical findings. Electronically signed by: Graham Manning On 04/19/2020 18:12:31 PM
== END ==
LOC: M RAD 17:30
PROVIDERS: ATTEND Specialist
DX: C34.90 Malignant neoplasm of unspecified part of unspecified bronchus or lung (principal)

== ENCOUNTER → 2020-05-04 | Outpatient (CLI) | payer MEDICARE ==
--- NOTE | 2020-05-04 13:17 | RADONC.CN ---
Radiation Oncology Hx/Consult Radiation Oncology Consult Date of Service: May 04, 2020 Pt Identifier Mio Marlow is a 79 year old male current smoker with a history of [id number] NSCLC of the RLL s/p lobectomy on 02/24/[address] Murillo. He received a single incomplete cycle of chemotherapy adjuvantly with Dr. Balderas and no additional adjuvant treatment. He subsequently experienced local recurrence in the right lung and mediastinum and also has a PET-CT avid left adrenal solitary oligometastasis in November 2019. He is now [id number] and is seen following progression on keytruda for consideration of RT to address his limited, but symptomatic disease burden. Diagnosis/Treatment History Oncologic History 50+ pack year smoker Followed by pulmonary starting in 2017 for right lung nodules, RLL nodule noted to be growing on CT from September 2018, 2.3 cm. PET-CT 10/23/18 showed avidity. He underwent CT biopsy on 11/25/18 showing adenocarcinoma, which was followed by EBUS 01/30/19 which was negative. He underwent RLL lobectomy and mediastinal vania l sampling which showed [id number]. He received a single dose of carbo/pem/pem and tolerated it poorly and so was observed. He suffered progression in the medial right chest/mediastinum and a left adrenal met which was PET-CT avid on 09/01/19. He started keytruda single agent in November 2019. Was noted to have progression in the right lung mass invading chest wall and mediastinum as well as involving the right mainstem bronchus on CT chest from 04/19/20. Interval History Reports he sleeps 16 hours per day. SOB when walking a few feet. Has been worse in recent weeks. Has right sided chest pain emanating from the back and wrapping around the chest anteriorly. He is chronically fatigued. Has a cough productive of clear to yellow mucus which can be triggered by eating or drinking. No significant dysphagia. Past Medical History: COPD ANDREAS Hearing loss DMII Past Surgical History: As above Family History: Mother had leukemia Social History: 60 pack year smoker Used to consume alcohol not currently Allergies / Meds Allergies: Coded Allergies: No Known Allergies (Unverified , 02/24/19) Home Meds Active Scripts Luning-3S/Dha/Epa/Fish Oil (Fish Oil EC 1,200 mg Softgel) 1 Each Capsule., 1 CAP PO DAILY for 30 Days, #30 CAP 5 Refills Prov:DAISY CORREIA MD 03/22/20 Gabapentin (Gabapentin) 100 Mg Capsule, 100 MG PO TID for 30 Days, #90 CAP 1 Refill 1-3 tabs up to 3 times a day as needed for post thoracotomy pain Prov:Yuly Balderas MD 08/20/19 Prochlorperazine Maleate (Prochlorperazine Maleate) 10 Mg Tablet, 10 MG PO Q8H PRN for NAUSEA OR VOMITING, #30 TAB 3 Refills Prov:Yuly Balderas MD 03/11/19 Ondansetron HCl (Ondansetron HCl) 8 Mg Tablet, 8 MG PO Q6H PRN for NAUSEA OR VOMITING, #30 TAB 3 Refills Prov:Yuly Balderas MD 03/11/19 Reported Medications Bupropion HCl (Bupropion HCl) 100 Mg Tablet, 150 MG PO DAILY, TAB 03/05/20 Lisinopril (Lisinopril) 10 Mg Tablet, 1 TAB PO DAILY for 30 Days, #30 TAB 01/29/19 Multivitamins (Thera M Plus Tablet) 1 Each Tablet, 1 TAB PO DAILY, TAB 11/25/18 Aspirin (Ecotrin) 81 Mg Tablet.dr, 81 MG PO DAILY, TAB 11/25/18 Amlodipine Besylate (Amlodipine Besylate) 5 Mg Tablet, 5 MG PO DAILY, TAB 11/25/18 Finasteride (Finasteride) 5 Mg Tablet, 5 MG PO DAILY, TAB 11/25/18 Glimepiride (Glimepiride) 1 Mg Tablet, 1 MG PO DAILY, TAB 11/25/18 Atorvastatin Calcium (Atorvastatin Calcium) 10 Mg Tablet, 10 MG PO DAILY, TAB 11/25/18 Metformin HCl (Metformin HCl ER) 500 Mg Tab.er.24h, 500 MG PO QHS, TAB 11/25/18 Metformin HCl (Metformin HCl ER) 500 Mg Tab.er.24h, 1000 MG PO QAM, TAB 11/25/18 Review of Systems Constitutional: Reports: Fatigue; Denies: Chills, Fever, Night Sweats Eyes: Denies: Pain, Vision change HEENT: Denies: Head Aches, Dysphagia, Sore Throat Skin: Denies: Rash, Lesions, Bruising Pulmonary: Reports: Dyspnea, Cough, Pleuritic Chest Pain Cardiovascular: Denies: Chest Pain, Palpitations, Edema Gastrointestinal: Denies: Nausea, Vomiting, Abdominal Pain, Diarrhea Genitourinary: Denies: Dysuria, Frequency, Incontinence Hematologic: Denies: Bruising, Petecchia, Enlarged Lymph Nodes Endocrine: Denies: Polydipsia, Cold Intolerance Musculoskeletal: Reports: Back pain; Denies: Neck pain Neurological: Denies: Weakness, Numbness, Incoordination Psych: Reports: Mood Normal; Denies: Memory Issues, Thoughts of Self Harm Vital Signs Wt 236 lb T 97 P 81 RR 22 BP 117/75 O2 96% Pain 3 Fatigue 3 General Exam: Positive: Alert, Cooperative, No Acute Distress Eye Exam: Positive: PERRLA, EOMI ENT EXAM: Positive: Mucous membr. moist/pink, Pharynx Normal Neck Exam: Negative: Thyromegaly, Lymphadenopathy Chest Exam: Positive: Normal air movement, Rhonchi, Wheezing (Left sided), Diminished (Right base); Negative: Rales Heart Exam: Positive: Rate Normal, Regular Rhythm Abdomen Exam: Positive: Soft; Negative: Tenderness, Mass Extremity Exam: Negative: Edema, Tenderness Skin Exam: Positive: Nl turgor and temperature; Negative: Rash Neuro Exam: Positive: Normal Gait, Normal Speech, Cranial Nerves 3-12 NL Psych Exam: Positive: Mental status NL, Mood NL, Memory Intact Diagnostic and Laboratory Diagnostic Review Radiologic images, relevant labs and pathology reports were personally reviewed and discussed with Mr. Marlow. Assessment and Plan Impression Mr. Marlow is a 79 year old male with a history of [] who was referred to the Department of Radiation Oncology for consideration of []. Stage Stage KARINA oligometastatic [id number] adenocarcinoma of the right lung, solitary left adrenal metastasis Performance Status ECOG 2 Plan We had an extensive discussion with Mr. Marlow regarding the diagnosis at hand and available therapeutic options. He has a borderline performance status and significant SOB from his recurrent tumor which is near-occluding the right mainstem bronchus. He is also having pain from this tumor invading the chest wall posteriorly. He has failed immunotherapy, but has overall a low burden of disease, limited to the right chest, mediastinal nodes and a small PET avid left adrenal metastasis. In this post-operative recurrent setting I recommend we pursue aggressive RT +/- chemotherapy at Dr. Santos's discretion to address the disease in the right chest. I will treat to a definitive dose 60 Gy in 30 fractions if chemotherapy is given. I will use VMAT to mitigate the risk of esophageal toxicity as well as to reduce lung V20 in the setting of prior lobectomy. If he responds favorably to this line of treatment, his symptoms improve, and we establish locoregional control of the chest disease on restaging, then I would consider definitively treating the left adrenal metastasis as well (under the oligometastatic paradigm) if there is no additional metastatic progression. We discussed the logistics of receiving radiation therapy in detail including the need for a 1-time planning session. This can occur next week. After discussing the risks, benefits and alternatives to radiation therapy, Mr. Marlow was amenable to pursuing radiotherapy. All questions were answered to the patient's satisfaction. We instructed the patient that if there were any questions,concerns or changes in clinical status in the interim to contact us. Recommendations Definitive dose RT to the right chest +/- chemotherapy 60 Gy in 30 fractions with VMAT Simulation next week If there is favorable response to this treatment and no additional distant progression, will offer definitive RT to solitary left adrenal metastasis IAN BOWMAN MD May 04, 2020 12:58
== END ==
LOC: M ONCR 10:24
PROVIDERS: ATTEND General Practice
DX: C34.90 Malignant neoplasm of unspecified part of unspecified bronchus or lung (principal); R06.02 Shortness of breath

== ENCOUNTER → 2020-05-10 | Outpatient (RCR) | payer MEDICARE | LOC: M ONCR 08:24 | PROVIDERS: ATTEND General Practice | DX: C34.31 Malignant neoplasm of lower lobe, right bronchus or lung (principal) ==

== ENCOUNTER → 2020-06-10 | Outpatient (RCR) | payer MEDICARE ==
--- NOTE | 2020-05-14 11:16 | RADENCPD ---
Date/Time of Encounter Date of Encounter: May 14, 2020 Time of Encounter: 11:11 Encounter Sera, patient's called to report that Mio has been experiencing worsening hemoptysis over the past 24 hours. At the time of his radiation planning on 05/11/20 he was experiencing infrequent cough with only blood tinged sputum. Today his cough is much worse and productive of cassandra red blood per Sera. Because of the acute worsening of his hemoptysis I recommended that they present to the ED for urgent management. He may benefit from bronchoscopic intervention. On the radiation side, I will attempt to accelerate our treatment planning and look to start REM[place], even though his insurance authorization for treatment has not been obtained (currently in review). Sera agreed to bring him in to the ED. I will follow along peripherally. IAN BOWMAN MD May 14, 2020 11:16
--- NOTE | 2020-05-14 16:18 | RADENCPD ---
Date/Time of Encounter Date of Encounter: May 14, 2020 Time of Encounter: 16:12 Encounter Sera called back stating that despite her efforts, Mio refuses to come to the ED for evaluation of his hemoptysis. He states he is "feeling better" and doesn't want to come in. Sera says that at the moment he is breathing comfortably and not currently coughing, although he was coughing frequently earlier in the day. I again gave my stated that my medical recommendation is that he present to the ED for evaluation, however he politely refused again. He would like something for his cough. I will send a prescription for tussinex. I stated emphatically that is his hemoptysis returns with cassandra blood in his sputum, as I was told was present this AM, that he must come to the ED. Sera agrees and will do her best to get him there. I will follow up with them on Sunday. I remain on-call to the ED here at [facility] if he presents over the weekend and there I questions I can be of help with. IAN BOWMAN MD May 14, 2020 16:18
[2020-06-07 11:08] LABS: FREE T4 0.57 NG/DL (0.76-1.46)
--- NOTE | 2020-06-08 09:59 | RADENCPD ---
Date/Time of Encounter Date of Encounter: Jun 08, 2020 Time of Encounter: 09:55 Encounter Mr. Marlow has been dealing with signs and symptoms which I believe are at least in part related to his profound hypothyroidism, which has developed acutely in the wake of keytruda (a known side effect). He has been started on a low dose which is an age appropriate strategy, with Dr. Graham. His TSH remains very high at >62 and his T4 persistently low, now approaching 2 months into replacement. Therefore, because Dr. Graham is on vacation, I instructed the patient to increase to 100 mcg daily synthroid, and as he is currently seeing me weekly on treatment, I will check his TSH again in 2 weeks time. I think given the acuity of his hypothyroidism (related to drug and not longstanding) as well as his weight this would hopefully be an effective dose. IAN BOWMAN MD Jun 08, 2020 09:59
[~2020-06-10] MED LIST changes: +GUAI1SOL2 PO; +LEVO500T3 PO; +LEVO50TA5 PO; +LIDO2.5C15 TOP
--- NOTE | 2020-06-10 10:06 | RADENCPD ---
Date/Time of Encounter Date of Encounter: Jun 10, 2020 Time of Encounter: 09:57 Encounter Mio experienced increased cough yesterday which failed to respond to the codeine syrup, which is usually helpful. He had some very scant hemoptysis with this. Cough and hemoptysis have resolved today. He also had some visual changes acutely while driving yesterday, vision went blurry and he saw a bright light, which subsided within a minute, he had his drive the rest of the way home. He had no dizziness or vertigo with this, and he had no syncope or feeling like he was going to lose consciousness. Today while lying flat on the table for treatment he complained of some chest pressure, without pain or radiation into the arm or jaw. He had not experienced this sensation during treatment previously. He has no exertional CP or pressure history at home. The pressure he felt resolved instantly upon sitting upright after treatment. At this time his VS are WNL. He is breathing comfortably on RA. I cautioned him that these phenomena if recurrent would be cause to present to the ED for evaluation (EKG to r/o WI etc.). He is stable at this time and does not want to go to the ED now. He said he would go over the weekend if he has any CP, SOB, visual disturbance or syncopal symptoms. For now, continue codeine syrup as needed for cough. Reduce synthroid to 75 mcg daily (highly doubt that recent up-titration of synthroid is at fault given dose was upped 2 days ago and pharmacologic time to steady state is considerably longer) Will repeat bloodwork week on 06/21/20 IAN BOWMAN MD Jun 10, 2020 10:06
== END ==
LOC: M ONCR 05-11 15:46
PROVIDERS: ATTEND General Practice
DX: C34.31 Malignant neoplasm of lower lobe, right bronchus or lung (principal); Z79.899 Other long term (current) drug therapy; E03.9 Hypothyroidism, unspecified

== ENCOUNTER 2020-07-08 09:21 | Outpatient (RCR) | payer MEDICARE ==
[2020-06-21 11:29] LABS: FREE T4 1.01 NG/DL (0.76-1.46); THYROID STIMULATING HORMONE 29.3 uIU/ML (0.358-3.740)
[~2020-07-08 09:21] MED LIST changes: +LEVO75TA4 PO
== END 2020-07-11 ==
LOC: M ONCR 09:21
PROVIDERS: ATTEND General Practice
DX: C34.31 Malignant neoplasm of lower lobe, right bronchus or lung (principal); Z79.899 Other long term (current) drug therapy

== ENCOUNTER → 2020-07-26 | Outpatient (CLI) | payer MEDICARE ==
[~2020-07-26] MED LIST changes: +LIDOCAINE 1% MDV 20ML VIAL As Ordered ONE; -LISI-542 PO; +LISI-898 PO; +LISI10TA22 PO; -LISI10TA4 PO; +MIDAZOLAM INJ 2MG/2ML VIAL (J2250 PER 1MG) As Ordered ONE; +PROMETHAZINE INJ 25 MG/ML VIAL (J2550) As Ordered ONE; +ceFAZolin 1GM VIAL (J0690 PER 500MG) As Ordered ONE; +diphenhydrAMINE 50MG/ML VIAL (J1200) As Ordered ONE; +fentaNYL 100 MCG/2 ML INJECTION (J3010) As Ordered ONE
--- NOTE | 2020-07-26 14:56 | IRHP ---
[facility] IR Pre-Procedure H & P General Date of Service: Jul 26, 2020 Procedure: Same Day Surgery Interval History and Physical I have seen the patient and reviewed last H & P performed within 30 days. There is no significant interval change. History of Present Illness Chief Complaint The patient is a 79-year-old male admitted with a reason for visit of Lung Ca. PRE-PROCEDURE DIAGNOSIS:lung cancer HEART: normal rate. LUNGS: normal breathing at rest. ASA Classification ASA Classification: III-Severe systemic dis. Mallampati Score: II NPO: Yes Problems with prior sedation: No Obstructive Sleep Apnea: Yes Plan moderate sedation Allergies Coded Allergies: No Known Allergies (Unverified , 02/24/19) Home Medications Scheduled Aspirin (Ecotrin), 81 MG PO DAILY, (Reported) Atorvastatin Calcium (Atorvastatin Calcium), 10 MG PO DAILY, (Reported) Finasteride (Finasteride), 5 MG PO DAILY, (Reported) Glimepiride (Glimepiride), 1 MG PO DAILY, (Reported) Levothyroxine Sodium (Levothyroxine Sodium), 1 TAB PO DAILY, (Reported) Multivitamins (Thera M Plus Tablet), 1 TAB PO DAILY, (Reported) [place]-3S/Dha/Epa/Fish Oil (Fish Oil EC 1,200 mg Softgel), 1 CAP PO DAILY Scheduled PRN Ondansetron HCl (Ondansetron HCl), 8 MG PO Q6H PRN for NAUSEA OR VOMITING Prochlorperazine Maleate (Prochlorperazine Maleate), 10 MG PO Q8HP PRN for NAUSEA OR VOMITING Discontinued Medications Amlodipine Besylate (Amlodipine Besylate), 5 MG PO DAILY, (Reported) Discontinued Reason: Pt states not taking Codeine Phosphate/Guaifenesin (Codeine-Guaifen 10-100 mg/5 ml), 5 ML PO Q6HP PRN for COUGH Discontinued Reason: Pt states not taking Gabapentin (Gabapentin), 100 MG PO TID Discontinued Reason: Pt states not taking Levofloxacin (Levofloxacin), 1 TAB PO DAILY Discontinued Reason: Pt states not taking Lidocaine/Prilocaine (Lidocaine-Prilocaine Cream), 1 DOSE TOP ASDIRECTED Discontinued Reason: Pt states not taking Lisinopril (Lisinopril), 1 TAB PO DAILY, (Reported) Discontinued Reason: Pt states not taking Metformin HCl (Metformin HCl ER), 1,000 MG PO QAM, (Reported) Discontinued Reason: Pt states not taking Metformin HCl (Metformin HCl ER), 500 MG PO QHS, (Reported) Discontinued Reason: Pt states not taking Ondansetron HCl (Ondansetron HCl), 8 MG PO Q6H PRN for NAUSEA OR VOMITING Discontinued Reason: Pt states not taking Prochlorperazine Maleate (Prochlorperazine Maleate), 10 MG PO Q8H PRN for NAUSEA OR VOMITING Discontinued Reason: Pt states not taking VS, I&O, 24H, Fishbone Laboratory Data 24H LABS Laboratory Tests 2 07/26/20 14:04: Bedside Glucose (Misc Panel) 141H CASEY OSORIO MD Jul 26, 2020 14:56
[2020-07-26 16:48] VITALS: BP 137/81
--- NOTE | 2020-07-28 14:57 | POST-OPPD ---
Postoperative Procedure Note Date Of Procedure: Jul 26, 2020 Time Of Procedure: 16:00 IR Ultrasound and fluoroscopy guided port placement IR Ultrasound of the neck. IR Moderate sedation. Clinical indication: Lung cancer. Physician: Dr. Zavaleta. Procedure: The patient was advised of the benefits, risks, and alternatives of the procedure and informed consent was obtained. A time-out was performed with verification of the patient's name, MRN, site of procedure and type of procedure to be performed. The patient was positioned in the supine position on the angiographic table. The site was prepped and draped in the usual sterile fashion. Moderate sedation was performed by the physician including the presence of an independent trained RN who assisted and monitored the patient's level of consciousness and physiologic status. Following the administration of fentanyl and Versed , the physician spent 45 minutes of continuous face to face time with the patient. Ultrasound of the neck reveals a patent and compressible right internal jugular vein. A marketing project coordinator radiograph reveals mediastinal widening. The neck and anterior chest wall were anesthetized with lidocaine. The right internal jugular vein was accessed using a microintroducer needle under ultrasound guidance, via a lateral approach. An 018 wire was advanced into the superior vena cava, the needle was removed and a microsheath was placed. An Amplatz wire was then passed into the inferior vena cava. An incision at the internal jugular vein access site and anterior chest wall were made using a scalpel. An incision was made at the anterior chest wall. A small pocket was created using a combination of blunt and sharp dissection. A tunneling device was then used to pass the catheter from the pocket to the neck puncture site. An 8- [place] Angio via680 Smart power port was then positioned in the pocket. The catheter was then measured and cut. The introducer sheath was exchanged for a peel-away sheath. The catheter was passed through the peel-away sheath into the internal jugular vein and the peel-away sheath was removed. The port tip was positioned at the cavoatrial junction. The port was then accessed with a Armendariz needle. The port flushes and aspirates well. The puncture site in the neck was closed. The chest wall incision was then closed with 2-0 Vicryl and 4-0 Monocryl. Glue and Steri- Strips were applied. A sterile dressing was then applied. The patient tolerated the procedure well and was returned to the PRU in stable condition. Estimated blood loss: <5 ml. Complications: None. Conclusion: 1. Successful placement of an 8-[place] Angio dynamics Smart power port via the right internal jugular vein. The port is ready for immediate use. 2. Patient to follow up in IR clinic in 2 weeks. Thank you for this referral. CASEY ZAVALETA MD Jul 28, 2020 14:57
== END ==
LOC: M IRPRO 13:27
PROVIDERS: ATTEND Radiology Diagnostic Radiology
DX: C34.90 Malignant neoplasm of unspecified part of unspecified bronchus or lung (principal); E11.9 Type 2 diabetes mellitus without complications; Z79.82 Long term (current) use of aspirin; Z79.890 Hormone replacement therapy; Z79.899 Other long term (current) drug therapy
CPT/HCPCS: 36561; 99152; 99153; C1769; C1788; C1894; J0690; J1200; J1642; J1644; J2250; J3010

== ENCOUNTER → 2020-08-10 | Outpatient (POV) | payer MEDICARE ==
[~2020-08-10] MED LIST changes: +ACET-908 PO; -LIDOCAINE 1% MDV 20ML VIAL As Ordered ONE; +METF-839 PO; +METF500T13 PO; -MIDAZOLAM INJ 2MG/2ML VIAL (J2250 PER 1MG) As Ordered ONE; +NAPR220C23 PO; +OSEL30CA PO; -PROMETHAZINE INJ 25 MG/ML VIAL (J2550) As Ordered ONE; +SENN-52 PO; -ceFAZolin 1GM VIAL (J0690 PER 500MG) As Ordered ONE; -diphenhydrAMINE 50MG/ML VIAL (J1200) As Ordered ONE; -fentaNYL 100 MCG/2 ML INJECTION (J3010) As Ordered ONE; +med rec comment
--- NOTE | 2020-08-16 11:53 | IRPN ---
[facility] IR Progress Note IR Progress Note DATE: Aug 10, 2020 No answer Allergies Coded Allergies: No Known Allergies (Unverified , 02/24/19) CASEY OSORIO MD Aug 16, 2020 11:53
== END ==
LOC: M TMIRPOV 07:51
PROVIDERS: ATTEND Radiology Diagnostic Radiology
DX: Z45.2 Encounter for adjustment and management of vascular access device (principal)

== ENCOUNTER 2020-08-13 17:17 | Inpatient (IN) | payer MEDICARE ==
[~2020-08-13] VITALS: Ht 180.3 cm; Wt 99.3 kg
[~2020-08-13 17:17] MED LIST changes: -ACET-908 PO; -METF-839 PO; -METF500T13 PO; -NAPR220C23 PO; -OSEL30CA PO; -SENN-52 PO; -med rec comment
[2020-08-13 18:53] LABS: HEMOGLOBIN 12.7 g/dl (13.5-17.5); MEAN CORPUSCULAR HEMOGLOBIN 32.9 pg (27.0-33.0); MEAN CORPUSCULAR HGB CONC 33.4 g/dl (32.0-36.5); MEAN CORPUSCULAR VOLUME 98.4 fl (80.0-96.0); PLATELET COUNT, AUTOMATED 366 10^3/uL (150-450); RED BLOOD COUNT 3.86 10^6/uL (4.30-6.10); VENOUS BASE EXCESS 2.6 (-2.0-2.0); VENOUS O2 SATURATION 65.1 % (60.0-80.0); VENOUS PARTIAL PRESSURE CO2 46.2 mmHg (38.0-50.0); VENOUS PARTIAL PRESSURE O2 34.4 mmHg (30.0-50.0); VENOUS PH 7.401 UNITS (7.330-7.430); VENOUS TOTAL CO2 29.5 MEQ/L (24.0-28.0); WHITE BLOOD COUNT 3.6 10^3/uL (4.0-10.0)
[2020-08-13 19:14] LABS: ATYPICAL LYMPH 3 % (0-5); EOSINOPHILS 14 % (0-3); LYMPHOCYTES 4 % (16-44); NEUTROPHILS 63 % (28-66)
[2020-08-13 19:15] LABS: ANISOCYTOSIS 1+; HYPOCHROMASIA 1+; PLATELET ESTIMATE NORMAL (NORMAL)
--- NOTE | 2020-08-13 19:15 | REP ---
INDICATION: Altered Mental Status COMPARISON: 06/16/2019 TECHNIQUE: Portable AP view of the chest FINDINGS: [id number] identified with tip in the SVC. The mediastinum and cardiac silhouette are stable and within normal limits for portable technique. The lung winters demonstrate chronic changes and stable presumed pneumatocele/bleb at the left base. No focal consolidation, effusion, or pneumothorax. Elevation and flattening to the right hemidiaphragm is similar to prior examination and suggests chronic change. Skeletal structures grossly intact. IMPRESSION: Chronic appearing changes as noted above. No obvious acute process appreciated. <Electronically signed by Dionte Mars > 08/13/20 [id number]
[2020-08-13 19:24] LABS: ALBUMIN 3.1 GM/DL (3.2-5.2); ALT/SGPT 24 U/L (12-78); BILIRUBIN,DIRECT 0.3 MG/DL (0.0-0.2); BILIRUBIN,TOTAL 0.8 MG/DL (0.2-1.0); BLOOD UREA NITROGEN 27 MG/DL (7-18); CALCIUM LEVEL 9.5 MG/DL (8.8-10.2); CARBON DIOXIDE LEVEL 28 MEQ/L (21-32); CHLORIDE LEVEL 100 MEQ/L (98-107); CK-MB VALUE MASS < 1.0 NG/ML (<3.6); CPK CREATINE PHOSPHOKINASE 32 U/L (39-308); CREATININE FOR GFR 1.53 MG/DL (0.70-1.30); GLOMERULAR FILTRATION RATE 47.1 (>42); GLUCOSE, FASTING 117 MG/DL (70-100); LIPASE 43 U/L (73-393); MB/CK RELATIVE INDEX 3.12 (< OR =4); POTASSIUM SERUM 4.1 MEQ/L (3.5-5.1); SODIUM LEVEL 136 MEQ/L (136-145); TROPONIN I < 0.02 NG/ML (< 0.10)
--- NOTE | 2020-08-13 19:37 | REPVR ---
PROCEDURE INFORMATION: Exam: CT Head Without Contrast Exam date and time: 08/13/2020 7:20 PM Age: 79 years old Clinical indication: Other: Weakness, general TECHNIQUE: Imaging protocol: Computed tomography of the head without contrast. Radiation optimization: All CT scans at this facility use at least one of these dose optimization techniques: automated exposure control; mA and/or kV adjustment per patient size (includes targeted exams where dose is matched to clinical indication); or iterative reconstruction. COMPARISON: MRI-Brain without Contrast 08/22/2019 9:26 AM FINDINGS: Brain: Global cerebral atrophy is consistent with patient's age. Decreased attenuation within the white matter tracts of both cerebral hemispheres is nonspecific but typically seen with small vessel disease/chronic white matter ischemic changes of aging. No intracranial hemorrhage or mass effect. Cerebral ventricles: No ventriculomegaly. Bones/joints: Unremarkable. No acute fracture. Paranasal sinuses: Visualized sinuses are unremarkable. No fluid levels. Mastoid air cells: Visualized mastoid air cells are well aerated. Soft tissues: Unremarkable. IMPRESSION: No acute abnormality. Electronically signed by: Tang Rodriguez On 08/13/2020 19:37:18 PM
--- NOTE | 2020-08-13 19:48 | REPVR ---
PROCEDURE INFORMATION: Exam: CT Abdomen And Pelvis Without Contrast Exam date and time: 08/13/2020 7:20 PM Age: 79 years old Clinical indication: Abdominal pain; Generalized; Additional info: Gen abd pain TECHNIQUE: Imaging protocol: Computed tomography of the abdomen and pelvis without contrast. Radiation optimization: All CT scans at this facility use at least one of these dose optimization techniques: automated exposure control; mA and/or kV adjustment per patient size (includes targeted exams where dose is matched to clinical indication); or iterative reconstruction. COMPARISON: CT ABD PELVIS WITH CONTRAST 01/13/2020 2:02 PM FINDINGS: Lungs: Bilateral reticular opacities most pronounced in the lateral basal segment of right lower lobe. Findings may represent foci of pneumonitis although neoplasm not excluded. Large subpleural bleb in the lingular lobe. Pleural spaces: Stable appearance of infrahilar spiculated pleural based opacity in the right lower lobe. Liver: Normal. No mass. Gallbladder and bile ducts: There are gallstones present. No evidence of cholecystitis demonstrated. Pancreas: Normal. No ductal dilation. Spleen: Normal. No splenomegaly. Adrenal glands: Marked interval increase in the size of a left adrenal mass measuring 3.3 x 4.8 cm consistent with metastatic disease. Kidneys and ureters: Small left renal cysts, stable. Stomach and bowel: Mild diverticulosis is present in the distal colon. No diverticulitis. Appendix: No evidence of appendicitis. Intraperitoneal space: Unremarkable. No free air. No significant fluid collection. Vasculature: The aortoiliac vessels demonstrate mild atherosclerotic calcification. Lymph nodes: Unremarkable. No enlarged lymph nodes. Urinary bladder: Unremarkable as visualized. Reproductive: Unremarkable as visualized. Bones/joints: The spine demonstrates mild degenerative changes. Mild central spinal stenosis L2-L3, L3-L4 and severe central spinal stenosis L4-L5. Soft tissues: Bilateral fatty inguinal hernias without incarceration. IMPRESSION: 1. Bilateral reticular opacities most pronounced in the lateral basal segment of right lower lobe. Findings may represent foci of pneumonitis although neoplasm not excluded. 2. Stable appearance of infrahilar spiculated pleural based opacity in the right lower lobe. 3. There are gallstones present. No evidence of cholecystitis demonstrated. 4. 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 5. Mild diverticulosis is present in the distal colon. No diverticulitis. Electronically signed by: Graham Manning On 08/13/2020 19:48:47 PM
[2020-08-13 20:01] LABS: FREE T4 0.97 NG/DL (0.76-1.46)
[2020-08-13] MEDS ORDERED: NS 500 ML IV ONE (20:15)
--- NOTE | 2020-08-13 20:17 | ECGEPIP ---
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
[2020-08-13] MEDS ORDERED: ACET-908 PO (20:57)
[2020-08-13] MEDS ORDERED: LISI-898 PO (20:57)
[2020-08-13] MEDS ORDERED: NAPR220C23 PO (20:57)
[2020-08-13] MEDS ORDERED: METF500T13 PO (20:57)
[2020-08-13] MEDS ORDERED: AMLO1TAB24 PO (20:57)
[2020-08-13] MEDS ORDERED: METF-839 PO (20:57)
[2020-08-13] MEDS ORDERED: med rec comment (20:58)
[2020-08-13] MEDS ORDERED: HumaLOG INSULIN (NovoLOG) PER UNIT SC SCH (21:00)
[2020-08-13 21:27] LABS: OSMOLALITY SERUM 283 MOSM/KG (280-301)
[2020-08-13 22:25] VITALS: BP 110/64
[2020-08-13] MEDS: OSELTAMIVIR PHOSPHATE 30MG CAPSULE PO SCH (22:58)
[2020-08-13] MEDS ORDERED: SODIUM CHLORIDE 0.9% INJ 10 ML SYR IV PRN (23:20)
[2020-08-13] MEDS ORDERED: ONDANSETRON 4 MG TAB PO PRN (23:50)
[2020-08-13] MEDS ORDERED: DEXTROSE 50% 50 ML SYRINGE IV PRN (23:50)
[2020-08-13] MEDS ORDERED: PROCHLORPERAZINE 5 MG TAB (S0183) PO PRN (23:50)
[2020-08-13] MEDS ORDERED: BISACODYL 5 MG TAB PO PRN (23:50)
[2020-08-13] MEDS ORDERED: GLUCAGON INJ 1MG VIAL SC PRN (23:50)
[2020-08-13] MEDS ORDERED: GLUCOSE 4GM CHEW TABLET PO PRN (23:50)
[2020-08-13] MEDS ORDERED: MIRALAX *UNIT DOSE* 17GM PACKET PO PRN (23:50)
[2020-08-13] MEDS ORDERED: ACETAMINOPHEN TAB 650MG DOSE (2X325MG) PO PRN (23:50)
[2020-08-13] MEDS ORDERED: SENOKOT S TAB PO PRN (23:50)
--- NOTE | 2020-08-14 00:33 | HPEPDOC ---
[facility] Medical History & Physical Date of Admission Aug 13, 2020 Date of Service: Aug 13, 2020 History and Physical CHIEF COMPLAINT: "[place] rundown for the past 2 days" HISTORY OF PRESENT ILLNESS: 79-year-old male presented to the emergency room with generalized weakness, worsening in the past 2 days. 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 He denied fever, chills, cough, shortness of breath and said that he even went out shopping with his y a couple weeks ago but now feels drained. He has had decrease in appetite and complained of abdominal discomfort in the epigastric region around the stomach without radiation that started yesterday with no prior history of abdominal pain described as crampy, without weight loss, nausea, vomiting, diarrhea, but has been constipated. Patient denies any hematuria, bright red blood per rectum, melena, black tarry stools, or weight loss. No prior history of kidney stones. Despite taking Tylenol, he continues to have "stomach pain," but Tums helped yesterday. In the emergency room, vital signs and lab work were unremarkable. CT abdomen : right lower lobe pneumonitis ,Left adrenal mass metastasis. Respiratory panel shows positive influenza A. Patient was given Tamiflu and admitted to medical surgical floor. 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 Small left renal cysts Mild diverticulosis is present in the distal colon. Mild central spinal stenosis L2-L3, L3-L4 and severe central spinal stenosis L4-L5. Bilateral fatty inguinal hernias without incarceration. PAST SURGICAL HISTORY: Right lower lobectomy, chest tube placement, [id number] for chemotherapy SOCIAL HISTORY: for 50 years. Healthcare proxy is the . still smokes cigarettes, 10 cigarettes a day now. Has not been smoking for the past 2 days. 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 Denies alcohol use FAMILY HISTORY: Noncontributory due to her advanced age ALLERGIES: Please see below. REVIEW OF SYSTEMS: 10 point review of systems negative aside from positive findings in HPI HOME MEDICATIONS: Please see below. PHYSICAL EXAMINATION: VITAL SIGNS: See below GENERAL APPEARANCE: No pallor, icterus or jaundice. Able to speak in full sentences. No use of respiratory accessory muscles HEENT: Dry mucous membranes. No JVD, no thyromegaly. Extraocular muscles intact CARDIOVASCULAR: S1, S2, regular rate and rhythm. Nondisplaced point of maximal impulse no carotid bruit LUNGS: Air entry is equal bilaterally. No adventitious breath sounds clear to auscultation without wheezing or rales ABDOMEN: Soft, slightly tender in epigastric region. No rebound, guarding. Positive bowel sounds 4 quadrants EXTREMITIES: No cyanosis, clubbing or pitting edema LABORATORY DATA: See below. IMAGING: Exam: CT Abdomen And Pelvis Without Contrast Exam date and time: 08/13/2020 7:20 PM Age: 79 years old Clinical indication: Abdominal pain; Generalized; Additional info: Gen abd pain TECHNIQUE: Imaging protocol: Computed tomography of the abdomen and pelvis without contrast. Radiation optimization: All CT scans at this facility use at least one of these dose optimization techniques: automated exposure control; mA and/or kV adjustment per patient size (includes targeted exams where dose is matched to clinical indication); or iterative reconstruction. COMPARISON: CT ABD PELVIS WITH CONTRAST 01/13/2020 2:02 PM FINDINGS: Lungs: Bilateral reticular opacities most pronounced in the lateral basal segment of right lower lobe. Findings may represent foci of pneumonitis although neoplasm not excluded. Large subpleural bleb in the lingular lobe. Pleural spaces: Stable appearance of infrahilar spiculated pleural based opacity in the right lower lobe. Liver: Normal. No mass. Gallbladder and bile ducts: There are gallstones present. No evidence of cholecystitis demonstrated. Pancreas: Normal. No ductal dilation. Spleen: Normal. No splenomegaly. Adrenal glands: Marked interval increase in the size of a left adrenal mass measuring 3.3 x 4.8 cm consistent with metastatic disease. Kidneys and ureters: Small left renal cysts, stable. Stomach and bowel: Mild diverticulosis is present in the distal colon. No diverticulitis. Appendix: No evidence of appendicitis. Intraperitoneal space: Unremarkable. No free air. No significant fluid collection. Vasculature: The aortoiliac vessels demonstrate mild atherosclerotic calcification. Lymph nodes: Unremarkable. No enlarged lymph nodes. Urinary bladder: Unremarkable as visualized. Reproductive: Unremarkable as visualized. Bones/joints: The spine demonstrates mild degenerative changes. Mild central spinal stenosis L2-L3, L3-L4 and severe central spinal stenosis L4-L5. Soft tissues: Bilateral fatty inguinal hernias without incarceration. IMPRESSION: 1. Bilateral reticular opacities most pronounced in the lateral basal segment of right lower lobe. Findings may represent foci of pneumonitis although neoplasm not excluded. 2. Stable appearance of infrahilar spiculated pleural based opacity in the right lower lobe. 3. There are gallstones present. No evidence of cholecystitis demonstrated. 4. 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 5. Mild diverticulosis is present in the distal colon. No diverticulitis. Electronically signed by: Graham Manning On 08/13/2020 19:48:47 PM Exam: CT Head Without Contrast Exam date and time: 08/13/2020 7:20 PM Age: 79 years old Clinical indication: Other: Weakness, general TECHNIQUE: Imaging protocol: Computed tomography of the head without contrast. Radiation optimization: All CT scans at this facility use at least one of these dose optimization techniques: automated exposure control; mA and/or kV adjustment per patient size (includes targeted exams where dose is matched to clinical indication); or iterative reconstruction. COMPARISON: MRI-Brain without Contrast 08/22/2019 9:26 AM FINDINGS: Brain: Global cerebral atrophy is consistent with patient's age. Decreased attenuation within the white matter tracts of both cerebral hemispheres is nonspecific but typically seen with small vessel disease/chronic white matter ischemic changes of aging. No intracranial hemorrhage or mass effect. Cerebral ventricles: No ventriculomegaly. Bones/joints: Unremarkable. No acute fracture. Paranasal sinuses: Visualized sinuses are unremarkable. No fluid levels. Mastoid air cells: Visualized mastoid air cells are well aerated. Soft tissues: Unremarkable. IMPRESSION: No acute abnormality. Electronically signed by: Tang Rodriguez On 08/13/2020 19:37:18 PM Portable AP view of the chest FINDINGS: [id number]-A-[id number] identified with tip in the SVC. The mediastinum and cardiac silhouette are stable and within normal limits for portable technique. The lung winters demonstrate chronic changes and stable presumed pneumatocele/bleb at the left base. No focal consolidation, effusion, or pneumothorax. Elevation and flattening to the right hemidiaphragm is similar to prior examination and suggests chronic change. Skeletal structures grossly intact. IMPRESSION: Chronic appearing changes as noted above. No obvious acute process appreciated. <Electronically signed by Dionte Mars > 08/13/201910 MICROBIOLOGY: Please see below. ASSESSMENT/PLAN: 79-year-old male presented to the emergency room with generalized weakness, worsening in the past 2 days. 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 He denied fever, chills, cough, shortness of breath and said that he even went out shopping with his y a couple weeks ago but now feels drained. He has had decrease in appetite and complained of abdominal discomfort in the epigastric region around the stomach without radiation that started yesterday with no prior history of abdominal pain described as crampy, without weight loss, nausea, vomiting, diarrhea, but has been constipated. Patient denies any hematuria, bright red blood per rectum, melena, black tarry stools, or weight loss. No prior history of kidney stones. Despite taking Tylenol, he continues to have "stomach pain," but Tums helped yesterday. In the emergency room, vital signs and lab work were unremarkable. CT abdomen : right lower lobe pneumonitis ,Left adrenal mass metastasis. Respiratory panel shows positive influenza A. Patient was given Tamiflu and admitted to medical sims rgical floor. Influenza A -Patient has been given Tamiflu. Supportive care. 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 gonzales for any changes in management Generalized weakness/debility -Secondary to influenza and lung cancer -[facility] consulted -Encourage early ambulation with fall precautions and assisted ambulation if needed COPD -No acute decompensation or exacerbation diabetes -Hold oral hypoglycemics during inpatient stay. -Consistent carbohydrate diet. Fingersticks every before meals at bedtime with sliding scale coverage and hypoglycemic protocol. Check A1c in the morning hypertension -Controlled and resumed on home medications obesity -Complicating care chronic kidney disease stage III -At baseline creatinine. 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 -Interval development on CT abdomen and pelvis done on 08/13/2020 .defer to his medical oncologist for any changes in his chemotherapy Small left renal cysts -Asymptomatic Mild diverticulosis is present in the distal colon. -Asymptomatic Mild central spinal stenosis L2-L3, L3-L4 and severe central spinal stenosis L4- L5. -Contributing to his inability to ambulate -ARU consulted -Does not have any signs and symptoms of cauda equina. Bilateral fatty inguinal hernias without incarceration. -Chronic Diet: 2 g sodium, consistent carbohydrate . DVT prophylaxis: Compression stockings CODE STATUS: Full code Vital Signs Vital Signs Date Time Temp Pulse Resp B/P (MAP) Pulse Ox O2 Delivery O2 Flow Rate FiO2 08/13/20 21:17 84 95 08/13/20 21:15 116/65 (82) 08/13/20 17:18 97.4 24 Room Air Laboratory Data Labs 24H Laboratory Tests 2 08/13/20 18:34: Neutrophils (%) (Auto) , Nucleated Red Blood Cells % (auto) 0.0, Neutrophils 63, Band Neutrophils 16H, Lymphocytes (Manual) 4L, Eosinophils (Manual) 14H, Atypical Lymphocytes 3, Hypochromasia 1+, Anisocytosis 1+, Macrocytosis 1+, Platelet Estimate NORMAL, Blood Gas Bicarbonate Standard 26.0, Venous Blood pH 7.401, Venous Blood Partial Pressure CO2 46.2, Venous Blood Partial Pressure O2 34.4, Venous Blood Total Carbon Dioxide 29.5H, Venous Blood HCO3 28.0H, Venous Blood Oxygen Saturation 65.1, Venous Blood Base Excess 2.6H, Anion Gap 8, Glomerular Filtration Rate 47.1, Osmolality 283, Calcium Level 9.5, Total Bilirubin 0.8, Direct Bilirubin 0.3H, Aspartate Amino Transf (AST/SGOT) 13, A lanine Aminotransferase (ALT/SGPT) 24, Alkaline Phosphatase 111, Ammonia < 10, Total Creatine Kinase 32L, Creatine Kinase MB < 1.0, Creatine Kinase MB Relative Index 3.12, Troponin I < 0.02, Total Protein 7.0, Albumin 3.1L, Albumin/Globulin Ratio 0.8, Lipase 43L, Thyroid Stimulating Hormone (TSH) 19.000H, Free Thyroxine 0.97 08/13/20 18:54: SARS Antigen (LFIA) NEGATIVE 08/13/20 18:56: Influenza A Immunofluorescence POSITIVEH, Influenza B Immunofluorescence NEGATIVE CBC/BMP Laboratory Tests 08/13/20 18:34 Microbiology Microbiology 08/13/20 Blood Culture, Received Pending 08/13/20 Blood Culture, Received Pending Home Medications Scheduled Amlodipine Besylate (Amlodipine Besylate) 5 Mg Tablet, 5 MG PO DAILY Aspirin (Ecotrin) 81 Mg Tablet.dr, 81 MG PO DAILY Atorvastatin Calcium (Atorvastatin Calcium) 10 Mg Tablet, 10 MG PO DAILY Finasteride (Finasteride) 5 Mg Tablet, 5 MG PO DAILY Glimepiride (Glimepiride) 1 Mg Tablet, 1 MG PO DAILY Levothyroxine Sodium (Levothyroxine Sodium) 75 Mcg Tablet, 75 MCG PO QAM Lisinopril (Lisinopril) 5 Mg Tablet, 5 MG PO DAILY Metformin HCl (Metformin HCl) 500 Mg Tablet, 500 MG PO QAM Metformin HCl (Metformin HCl) 500 Mg Tablet, 1,000 MG PO QPM Multivitamins (Thera M Plus Tablet) 1 Each Tablet, 1 TAB PO DAILY [place]-3S/Dha/Epa/Fish Oil (Fish Oil EC 1,200 mg Softgel) 1 Each Capsule.dr, 1 CAP PO DAILY Scheduled PRN Acetaminophen (Acetaminophen) 325 Mg Tablet, 325 MG PO Q4-6HP PRN for PAIN Naproxen Sodium (Naproxen Sodium) 220 Mg Capsule, 220 MG PO DAILY PRN for PAIN Ondansetron HCl (Ondansetron HCl) 8 Mg Tablet, 8 MG PO Q6H PRN for NAUSEA OR VOMITING Prochlorperazine Maleate (Prochlorperazine Maleate) 10 Mg Tablet, 10 MG PO Q8HP PRN for NAUSEA OR VOMITING Miscellaneous Medications [med rec comment] patient hasnt taken any meds in a few days Allergies Coded Allergies: No Known Allergies (Unverified , 02/24/19) A-FIB/CHADSVASC A-FIB History Current/History of A-Fib/PAF?: No Current PO Anticoag Therapy: No Age/Risk Factor Scoring CHADSVASC: CHADSVASC Response (Comments) Value Age Risk Factor Age >/= 75 years old 2 Gender Risk Factor Male 0 Hx of CHF No 0 Hx of HTN Yes 1 Hx of Stroke/TIA/or VTE No 0 Hx of Diabetes Yes 1 Hx of Vascular Disease No 0 Total 4 Treatment Treatment ordered: NONE AUGUSTINE ARRIAGA MD Aug 14, 2020 00:32
[2020-08-14] MEDS ORDERED: NICOTINE POLACRILEX 2 MG GUM PO PRN (00:35)
[2020-08-14 05:28] LABS: HEMATOCRIT 36.7 % (42.0-52.0); MEAN CORPUSCULAR HEMOGLOBIN 32.3 pg (27.0-33.0); MEAN CORPUSCULAR HGB CONC 32.7 g/dl (32.0-36.5); MEAN CORPUSCULAR VOLUME 98.9 fl (80.0-96.0); PLATELET COUNT, AUTOMATED 351 10^3/uL (150-450); RED BLOOD COUNT 3.71 10^6/uL (4.30-6.10); WHITE BLOOD COUNT 2.7 10^3/uL (4.0-10.0)
[2020-08-14 05:57] LABS: CREATININE FOR GFR 1.52 MG/DL (0.70-1.30); FREE THYROXINE INDEX 2.4 % (1.4-3.8); GLOMERULAR FILTRATION RATE 47.5 (>42); POTASSIUM SERUM 3.8 MEQ/L (3.5-5.1); THYROID STIMULATING HORMONE 17.3 uIU/ML (0.358-3.740); THYROXINE (T4) 7.9 UG/DL (4.5-12.0)
[2020-08-14 06:00] VITALS: BP 105/60
[2020-08-14] MEDS ORDERED: LEVOTHYROXINE 75MCG TABLET (0.075MG) PO SCH (06:00)
[2020-08-14 06:03] LABS: HEMOGLOBIN A1c 6.5 %
[2020-08-14 06:37] LABS: ATYPICAL LYMPH 1 % (0-5); EOSINOPHILS 19 % (0-3); LYMPHOCYTES 6 % (16-44); MONOCYTES 3 % (0-5); NEUTROPHILS 71 % (28-66)
[2020-08-14 06:48] LABS: PLATELET ESTIMATE NORMAL (NORMAL)
[2020-08-14] MEDS ORDERED: HumaLOG INSULIN (NovoLOG) PER UNIT SC SCH (07:30)
[2020-08-14] MEDS ORDERED: SODIUM CHLORIDE 0.9% INJ 10 ML SYR IV SCH (09:00)
[2020-08-14] MEDS ORDERED: lisinopriL 5 MG TAB PO SCH (09:00)
[2020-08-14] MEDS ORDERED: FINASTERIDE 5 MG TAB PO SCH (09:00)
[2020-08-14] MEDS ORDERED: MULTIVITAMINS/MINERALS THERAP 1 TAB PO SCH (09:00)
[2020-08-14] MEDS ORDERED: amLODIPine 5 MG TAB PO SCH (09:00)
[2020-08-14] MEDS ORDERED: ATORVASTATIN 10 MG TAB PO SCH (09:00)
[2020-08-14] MEDS ORDERED: ASPIRIN 81 MG ENTERIC TAB PO SCH (09:00)
[2020-08-14 09:32] VITALS: BP 136/72
[2020-08-14] MEDS ORDERED: LEVO75TA4 PO (09:32)
[2020-08-14] MEDS ORDERED: OSEL30CA PO (09:32)
[2020-08-14] MEDS ORDERED: SENN-52 PO (09:32)
[2020-08-14] MEDS: OSELTAMIVIR PHOSPHATE 30MG CAPSULE PO SCH (09:33)
--- NOTE | 2020-08-14 11:40 | DS.PDOC ---
Discharge Summary General Date of Admission Aug 13, 2020 at 20:52 Date of Discharge 08/14/20 Discharge Summary PROCEDURES PERFORMED DURING STAY: [None]. 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 Small left renal cysts Mild diverticulosis is present in the distal colon Mild central spinal stenosis L2-L3, L3-L4 and severe central spinal stenosis L4- L5. 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 Small left renal cysts Mild diverticulosis is present in the distal colon Mild central spinal stenosis L2-L3, L3-L4 and severe central spinal stenosis L4- L5. Bilateral fatty inguinal hernias without incarceration COMPLICATIONS/CHIEF COMPLAINT: Influenza A. HISTORY OF PRESENT ILLNESS: 79-year-old male presented to the emergency room with generalized weakness, worsening in the past 2 days. 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 He denied fever, chills, cough, shortness of breath and said that he even went out shopping with his y a couple weeks ago but now feels drained. He has had decrease in appetite and complained of abdominal discomfort in the epigastric region around the stomach without radiation that started yesterday with no prior history of abdominal pain described as crampy, without weight loss, nausea, vomiting, diarrhea, but has been constipated. Patient denies any hematuria, bright red blood per rectum, melena, black tarry stools, or weight loss. No prior history of kidney stones. Despite taking Tylenol, he continues to have "stomach pain," but Tums helped yesterday. In the emergency room, vital signs and lab work were unremarkable. CT abdomen : right lower lobe pneumonitis ,Left adrenal mass metastasis. Respiratory panel shows positive influenza A. Patient was given Tamiflu and admitted to medical surgical floor. HOSPITAL COURSE: During hospital stay patient received Tamiflu. In the morning vital signs stable, patient stated that he feels better. He walks to the bathroom and back without any difficulties. Patient will be discharged today with follow-up primary care physician in 2 to 3 days DISCHARGE MEDICATIONS: Please see below. ALLERGIES: Please see below. PHYSICAL EXAMINATION ON DISCHARGE: VITAL SIGNS: Please see below. GENERAL APPEARANCE: No pallor, icterus or jaundice. Able to speak in full sentences. No use of respiratory accessory muscles HEENT: Dry mucous membranes. No JVD, no thyromegaly. Extraocular muscles intact CARDIOVASCULAR: S1, S2, regular rate and rhythm. Nondisplaced point of maximal impulse no carotid bruit LUNGS: Air entry is equal bilaterally. No adventitious breath sounds clear to auscultation without wheezing or rales ABDOMEN: Soft, slightly tender in epigastric region. No rebound, guarding. Positive bowel sounds 4 quadrants EXTREMITIES: No cyanosis, clubbing or pitting edema LABORATORY DATA: Please see below. IMAGING: See above PROGNOSIS: Fair ACTIVITY: [As tolerated]. DIET: Cardiac DISPOSITION: Home ITEMS TO FOLLOWUP ON ON OUTPATIENT: Follow-up with PCP in 2-3 days DISCHARGE CONDITION: [Stable]. TIME SPENT ON DISCHARGE: Greater than 20 minutes. Vital Signs/I&Os Vital Signs Date Time Temp Pulse Resp B/P (MAP) Pulse Ox O2 Delivery O2 Flow Rate FiO2 08/14/20 09:32 136/72 08/14/20 06:00 97.3 86 18 95 Room Air I&O- Last 24 Hours up to 6 AM 08/14/20 06:00 Intake Total 1100 ml Balance 1100 ml Laboratory Data Labs 24H Laboratory Tests 2 08/13/20 18:34: Neutrophils (%) (Auto) , Nucleated Red Blood Cells % (auto) 0.0, Neutrophils 63, Band Neutrophils 16H, Lymphocytes (Manual) 4L, Eosinophils (Manual) 14H, Atypical Lymphocytes 3, Hypochromasia 1+, Anisocytosis 1+, Macrocytosis 1+, Platelet Estimate NORMAL, Blood Gas Bicarbonate Standard 26.0, Venous Blood pH 7.401, Venous Blood Partial Pressure CO2 46.2, Venous Blood Partial Pressure O2 34.4, Venous Blood Total Carbon Dioxide 29.5H, Venous Blood HCO3 28.0H, Venous Blood Oxygen Saturation 65.1, Venous Blood Base Excess 2.6H, Anion Gap 8, Glomerular Filtration Rate 47.1, Osmolality 283, Calcium Level 9.5, Total Bilirubin 0.8, Direct Bilirubin 0.3H, Aspartate Amino Transf (AST/SGOT) 13, Alanine Aminotransferase (ALT/SGPT) 24, Alkaline Phosphatase 111, Ammonia < 10, Total Creatine Kinase 32L, Creatine Kinase MB < 1.0, Creatine Kinase MB Relative Index 3.12, Troponin I < 0.02, Total Protein 7.0, Albumin 3.1L, Albumin/Globulin Ratio 0.8, Lipase 43L, Thyroid Stimulating Hormone (TSH) 19.000H, Free Thyroxine 0.97 08/13/20 18:54: SARS Antigen (LFIA) NEGATIVE 08/13/20 18:56: Influenza A Immunofluorescence POSITIVEH, Influenza B Immunofluorescence NEGATIVE 08/14/20 00:41: Bedside Glucose (Misc Panel) 114H 08/14/20 05:07: Neutrophils (%) (Auto) , Nucleated Red Blood Cells % (auto) 0.0, Neutrophils 71H, Lymphocytes (Manual) 6L, Monocytes (Manual) 3, Eosinophils (Manual) 19H, Atypical Lymphocytes 1, Giant Platelets , Platelet Estimate NORMAL, Anion Gap 5L, Glomerular Filtration Rate 47.5, Estimated Mean Plasma Glucose 140H, Hemoglobin A1c 6.5, Calcium Level 9.0, Thyroid Stimulating Hormone (TSH) 17. 300H, Free Thyroxine Index 2.4, Thyroxine (T4) 7.9, Triiodothyronine (T3) Uptake 30L 08/14/20 09:28: Coronavirus (COVID-19)(PCR) NEGATIVE 08/14/20 11:14: Bedside Glucose (Misc Panel) 113H CBC/BMP Laboratory Tests 08/13/20 18:34 08/14/20 05:07 FSBS Laboratory Tests Test 08/14/20 00:41 08/14/20 11:14 Range/Units Bedside Glucose (Misc Panel) 114 113 83-110 MG/DL Microbiology Microbiology 08/13/20 Blood Culture, Received Pending 3/5/21 Blood Culture, Received Pending Discharge Medications Scheduled Amlodipine Besylate (Amlodipine Besylate) 5 Mg Tablet, 5 MG PO DAILY, (Reported) Aspirin (Ecotrin) 81 Mg Tablet.dr, 81 MG PO DAILY, (Reported) Atorvastatin Calcium (Atorvastatin Calcium) 10 Mg Tablet, 10 MG PO DAILY, (Reported) Finasteride (Finasteride) 5 Mg Tablet, 5 MG PO DAILY, (Reported) Glimepiride (Glimepiride) 1 Mg Tablet, 1 MG PO DAILY, (Reported) Levothyroxine Sodium (Levothyroxine Sodium) 75 Mcg Tablet, 100 MCG PO QAM Lisinopril (Lisinopril) 5 Mg Tablet, 5 MG PO DAILY, (Reported) Metformin HCl (Metformin HCl) 500 Mg Tablet, 500 MG PO QAM, (Reported) Metformin HCl (Metformin HCl) 500 Mg Tablet, 1,000 MG PO QPM, (Reported) Multivitamins (Thera M Plus Tablet) 1 Each Tablet, 1 TAB PO DAILY, (Reported) [place]-3S/Dha/Epa/Fish Oil (Fish Oil EC 1,200 mg Softgel) 1 Each Capsule.dr, 1 CAP PO DAILY Oseltamivir Phosphate (Oseltamivir Phosphate) 30 Mg Capsule, 30 MG PO BID Scheduled PRN Acetaminophen (Acetaminophen) 325 Mg Tablet, 325 MG PO Q4-6HP PRN for PAIN, (Reported) Naproxen Sodium (Naproxen Sodium) 220 Mg Capsule, 220 MG PO DAILY PRN for PAIN, (Reported) Ondansetron HCl (Ondansetron HCl) 8 Mg Tablet, 8 MG PO Q6H PRN for NAUSEA OR VOMITING Prochlorperazine Maleate (Prochlorperazine Maleate) 10 Mg Tablet, 10 MG PO Q8HP PRN for NAUSEA OR VOMITING Sennosides/Docusate Sodium (Senna Plus Tablet) 1 Each Tablet, 2 TAB PO BIDP PRN for CONSTIPATION Miscellaneous Medications [med rec comment] , (Reported) patient hasnt taken any meds in a few days Allergies Coded Allergies: No Known Allergies (Unverified , 02/24/19) CHRISTIAN SOTO DO Aug 14, 2020 11:40
== END 2020-08-14 12:42 | disposition home or self-care (01) | DRG 194 ==
LOC: M ED 17:17 → M ED INP 20:52 → ENRESERV 21:53 → M MSPAV 22:25
PROVIDERS: ADMIT General Practice; ATTEND Internal Medicine
DX: J10.1 Influenza due to other identified influenza virus with other respiratory manifestations (principal); C79.72 Secondary malignant neoplasm of left adrenal gland; C34.91 Malignant neoplasm of unspecified part of right bronchus or lung; J44.9 Chronic obstructive pulmonary disease, unspecified; E11.9 Type 2 diabetes mellitus without complications; I12.9 Hypertensive chronic kidney disease with stage 1 through stage 4 chronic kidney disease, or unspecified chronic kidney disease; E66.9 Obesity, unspecified; N18.30 Chronic kidney disease, stage 3 unspecified; Z90.2 Acquired absence of lung [part of]; F17.210 Nicotine dependence, cigarettes, uncomplicated; Z95.828 Presence of other vascular implants and grafts; R53.81 Other malaise; R53.1 Weakness; K80.20 Calculus of gallbladder without cholecystitis without obstruction; K40.20 Bilateral inguinal hernia, without obstruction or gangrene, not specified as recurrent; Z79.82 Long term (current) use of aspirin; Z79.84 Long term (current) use of oral hypoglycemic drugs; Z79.899 Other long term (current) drug therapy

== ENCOUNTER 2020-09-14 09:53 | Inpatient (IN) | payer MEDICARE ==
[~2020-09-14] VITALS: Ht 180.3 cm; Wt 100.3 kg
[~2020-09-14 09:53] MED LIST changes: +ACET-908 PO; +COVI100V IM; +METF-839 PO; +METF500T13 PO; +NAPR220C23 PO; +OSEL30CA PO; +SENN-52 PO; +med rec comment
[2020-09-14 10:23] LABS: EOS # 0.1 10^3/uL (0.0-0.5); EOS % 14.9 % (0.0-3.0); HEMATOCRIT 38.4 % (42.0-52.0); HEMOGLOBIN 12.4 g/dl (13.5-17.5); LYMPH # 0.3 10^3/uL (1.5-5.0); LYMPH % 49.3 % (24.0-44.0); MEAN CORPUSCULAR HEMOGLOBIN 32.7 pg (27.0-33.0); MEAN CORPUSCULAR HGB CONC 32.3 g/dl (32.0-36.5); MEAN CORPUSCULAR VOLUME 101.3 fl (80.0-96.0); MONO # 0.1 10^3/uL (0.0-0.8); MONO % 16.4 % (2.0-8.0); NEUTROPHILS % 10.4 % (36.0-66.0); PLATELET COUNT, AUTOMATED 511 10^3/uL (150-450); RED BLOOD COUNT 3.79 10^6/uL (4.30-6.10)
[2020-09-14 10:36] LABS: NEUTROPHILS # 0.1 10^3/uL (1.5-8.5); WHITE BLOOD COUNT 0.7 10^3/uL (4.0-10.0)
[2020-09-14] MEDS ORDERED: NS 3,150 ML in IV 1 EA IV ONE (10:40)
[2020-09-14] MEDS ORDERED: cefTRIAXone SOD 2 GM in D5W MINI-BAG PLUS 50 ML IV ONE (10:40)
[2020-09-14 10:53] LABS: ALBUMIN 3.4 GM/DL (3.2-5.2); BILIRUBIN,TOTAL 0.4 MG/DL (0.2-1.0); CALCIUM LEVEL 9.3 MG/DL (8.8-10.2); CREATININE FOR GFR 1.57 MG/DL (0.70-1.30); GLOMERULAR FILTRATION RATE 45.7 (>42); POTASSIUM SERUM 4.2 MEQ/L (3.5-5.1)
--- NOTE | 2020-09-14 11:08 | REP ---
INDICATION: fever. COMPARISON: 04/17/2019 PA and lateral chest, 06/16/2019, PA and lateral, and 08/13/2020 portable chest. TECHNIQUE: Portable AP chest with the patient sitting. FINDINGS: There is chronic pleural thickening and chronic volume loss throughout the right hemithorax, unchanged. There is a right IJ Jycilu-K-Hqzr catheter with the tip in the superior vena cava in satisfactory position, unchanged from 08/13/2020. The lung winters are otherwise clear and unchanged. Cardiac size is normal. The lisa, mediastinum, and skeletal structures are unremarkable. There is a large bulla in the left costophrenic angle, unchanged. IMPRESSION: There are chronic findings as discussed above. There is a right IJ central venous catheter, unchanged from 08/13/2020. No acute cardiopulmonary findings. <Electronically signed by Kirit Sotelo > 09/14/20 [id number]
--- NOTE | 2020-09-14 11:09 | REP ---
INDICATION: h/o lung CA ?mets COMPARISON: 08/13/2020 TECHNIQUE: Axial noncontrast images from the skull base to the thoracic inlet with coronal reformations. This CT examination was performed using the following dose reduction techniques: Automated exposure control, adjustment of mA and/or kv according to the patient's size, and use of iterative reconstruction technique. FINDINGS: Age-related atrophy and microvascular ischemic changes are appreciated. The ventricles and sulci are symmetric. Sommer-white differentiation is maintained. There is no evidence for acute intracranial hemorrhage, edema, mass/mass effect, pathology or infarction. No extra-axial fluid collection. Calvarium is intact. Paranasal sinuses and mastoid air cells are clear. IMPRESSION: Age related atrophy and microvascular ischemic changes. No acute intracranial hemorrhage, infarction, or mass/mass effect. <Electronically signed by Dionte Mars > 09/14/20 [id number]
[2020-09-14] MEDS ORDERED: LEVO75TA4 PO (12:27)
[2020-09-14] MEDS ORDERED: METF-838 PO (12:29)
[2020-09-14] MEDS ORDERED: VANCOMYCIN HCL 1,000 MG, VIAL MATE ADAPTER 1 EACH in NS 250 ML IV ONE (13:00)
[2020-09-14] MEDS ORDERED: MAALOX 30 ML SUSP *UDC PO PRN (13:00)
[2020-09-14] MEDS ORDERED: VANCOMYCIN HCL 1,000 MG, VIAL MATE ADAPTER 1 EACH in NS 250 ML IV SCH (13:00)
[2020-09-14] MEDS ORDERED: MOM 30ML SUSPENSION UDC PO PRN (13:00)
[2020-09-14] MEDS ORDERED: NS 1,000 ML IV ONE (13:00)
[2020-09-14] MEDS ORDERED: VANCOMYCIN HCL 750 MG, VIAL MATE ADAPTER 1 EACH in NS 250 ML IV ONE ×2 (15:00→18:00)
[2020-09-14] MEDS ORDERED: PROCHLORPERAZINE 5 MG TAB (S0183) PO PRN (15:30)
[2020-09-14] MEDS ORDERED: ONDANSETRON 4 MG TAB PO PRN (15:30)
--- NOTE | 2020-09-14 16:42 | HPEPDOC ---
[facility] Medical History & Physical Date of Admission Sep 14, 2020 Date of Service: Sep 14, 2020 Attending Physician: DARWIN JERMOE MD History and Physical CHIEF COMPLAINT: Abnormal labs. 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 Graham) office due to possible seizure and concerns of metastatic brain disease on neutropenic sepsis. Pt was scheduled to receive his next dose of Navelbine today. Pt reports that he suddenly felt cold, dizzy, and lightheaded when he started "shaking all over, in my arms and legs". He states that he remembers the events clearly and did not lose consciousness. Pt states that he had a similar episode of feeling cold, dizzy, and lightheaded yesterday night. He states that he felt weak yesterday but did not have any similar events of shaking. Pt states that he felt well this morning. While in the ER, pt had a similar episode that was witnessed by the ED physician who states that pt was having rigors all over, in all four extremities. Denies any hx of similar sx or seizures. Pt reports that he has had decreased appetite but has been drinking 4- 5 glasses of water a day. Admits to constipation due to decreased intake, last BM 3 days ago. Pt states that he has had leg pain bilaterally that was worsened yesterday. Denies any N/V/D, SOB, CP, dizziness, visual changes, fever, chills, headache, diaphoresis, or LOC. Denies noticing any ulcerations, lesions, or scra tches to skin. In the ED, pt was given a dose of IV Ceftriaxone as well as a bolus of IV NS. Pt is currently seeing Dr. Graham for treatment of his non-small cell carcinoma of R lung. Pt reports that he believes he was diagnosed 2 years ago. He has a port in place and states that he had the port placed 3-4 weeks ago. His last chemo treatment was one week ago and has been started on Navelbine on a weekly basis starting 08/03/20. Pt reports having received 3 chemo treatments thus far. He states that he finished radiation in June and is scheduled for PET scan on 10/07/20. PAST MEDICAL HISTORY: 1. 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 2. COPD. 3. DMT2. 4. HTN. 5. CKD Stage III. 6. Diverticulosis. 7. Spinal stenosis. 8. Narcolepsy. PAST SURGICAL HISTORY: 1. R lobe lobectomy. 2. Chest tube placement. 3. Sbzeyi-q-Falv for chemotherapy. SOCIAL HISTORY: Marital status: . Resides in: Home with . 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 Tobacco use: Reports quit 10 days ago. Prior to that he has been smoking about 10 cigarettes per day. FAMILY HISTORY: Non-contributory. ALLERGIES: Please see below. REVIEW OF SYSTEMS: CONSTITUTIONAL: Admits "shaking" and feeling cold. Denies any fevers or chills. Denies diaphoresis and headache. HEENT: Denies visual changes. CARDIOVASCULAR: Denies chest pain. RESPIRATORY: Denies SOB. GASTROINTESTINAL: Admits to constipation. Denies diarrhea, nausea, vomiting, or abd pain. SKIN: Denies noticing any skin lesions, ulcerations, or scratches. MUSCULOSKELETAL: Admits to some bilateral pain to popliteal fossa. NEUROLOGICAL: Admits to dizziness and lightheadedness prior to arrival but denies any current. Denies any LOC. HOME MEDICATIONS: Please see below. PHYSICAL EXAMINATION: VITAL SIGNS: Temperature 97.7, pulse 95, respiratory rate 18, blood pressure 108/66, pulse oximetry 99% on room air. GENERAL APPEARANCE: Pt is laying in bed, comfortably at rest. No acute distress. He is pleasant and answers questions without difficulty. HEENT: NC/AT. EOMI. PERRLA. Conjunctiva and lids normal. Sclera anicteric. Pt is hard of hearing. No exudates or erythema to posterior oropharynx. Dry oropharynx. Tongue midline. NECK: No JVD. Trachea midline. CARDIOVASCULAR: Regular rate and rhythm. Nl S1/S2. No murmurs, rubs, or gallops. LUNGS: Lungs clear to auscultation. No wheezes, rales, or rhonchi appreciated. ABDOMEN: Abd soft and nontender. No guarding or rebound. Normoactive bowel sounds in all four quadrants. EXTREMITIES: No pitting edema to BLE. 2+/4 DP pulses. Clubbing of fingernails b/l. SKIN: Decreased skin turgor. Capillary refills >3 seconds. No rashes, lesions, or ulcerations seen. NEUROLOGICAL: No focal neurologic deficits. PSYCHIATRIC: Normal affect and mood. LABORATORY DATA: See below. IMAGING: CT Head (09/14/20) Age related atrophy and microvascular ischemic changes. No acute intracranial hemorrhage, infarction, or mass/mass effect. CXR (09/14/20) There are chronic findings as discussed above. There is a right IJ central catheter, unchanged from 08/13/2020. No acute cardiopulmonary findings. MICROBIOLOGY: Please see below. 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 Graham) office due to possible seizure and concerns of metastatic brain disease on neutropenic sepsis. Pt had a similar episode in the ED that was observed by the ED physician who states that pt was shaking in all four extremities. Pt remembers these events clearly. Pt admitted for further work up of neutropenia and rigors. #Neutropenia - Pt is currently undergoing chemotherapy for his lung cancer. He receives Navelbine once a week and his last treatment was last week. Navelbine is known to cause neutropenia and this is to be expected. - WBC at the time of admission was 0.7. - Pt is afebrile and reports that he has not felt feverish. However, given that it appears that pt is having rigors, it may be possible that pt may be experiencing translocation of bacteria from other areas of his body. - Given that pt has a port and a peripheral IV, he has a chance of these areas being a nidus of infection. Will have port cultured. - Blood culture and UA with reflex to culture ordered and pending. - CXR ruled out any pneumonia. - MRSA PCR screen ordered and pending. - Due to neutropenia, will avoid any invasive procedures such as scopes, catheter placement, or suctioning. - Neutropenic precautions in place. - Pt given one dose of IV Ceftriaxone in ED. - Pt started on IV Vancomycin 750 mg (Day #1) and IV Cefepime 2 gm (Day #1). - Will continue to monitor with daily CBC's and vitals. - Dr. Graham has been updated about pt condition. He instructs to start pt on Neupogen 480 mcg SC daily. #Stage IIB Non-Small Cell Carcinoma of R Lung - Pt is being treated for this carcinoma by Dr. Graham. He has gone through trials of Alimta carboplatin and pembrolizumab in March 2019 but that was discontinue d due to adverse side effects. He has received 2 doses of Keytruda but that was discontinued due to increased weakness. On Aug 03, 2020 pt was started on Navelbine on a weekly basis. Pt reports that he has received 3 doses of Navelbine thus far. - Pt is scheduled for a PET scan on 10/07/20. - Pt was at Dr. Graham's office today when he experienced these sx and was sent here by oncologist office. - Dr. Graham has been called and updated on pt case. Will have pt continue with outpatient follow up as scheduled. - Zofran 8 mg Q6H PO PRN ordered for nausea or vomiting 2/2 chemotherapy. #Hypotension - Pt has a hx of HTN however, he is hypotensive in the ED (lowest BP of 77/50). - Given that on physical exam pt had dry mucous membranes, decreased skin turgor, and increased capillary refills along with his reports of decreased oral intake, it is suspected that this hypotension is 2/2 dehydration. Pt states that he has been drinking 4-5 glasses of water a day. - Pt BP increased to 102/57 after a bolus of fluids in the ED. - Another bolus of fluids followed by IV fluids at 75 mls/hr. - Pt HTN medications have been held. - Will continue to monitor BP's. #Hx of hypertension - Pt has hx of HTN but has been hypotensive. See above. - Will hold Amlodipine and Lisinopril. Hypotensive parameters have been placed to these medications. #DMT2 - Consistent carb diet. - Sliding scale insulin with hypoglycemic protocol. #CKD Stage III - Pt BUN 15 and Creatinine is 1.57 at the time of admission. - Pt creatinine is at baseline. - Will continue to monitor. #Hypothyroidism - Continue home medication of Levothyroxine 75 mcg QHS PO. #Hyperlipidemia - Continue home medication Atorvastatin 10 mg PO Daily. #Constipation - Pt is on Navelbine for chemotherapy. A side effect of Navelbine is constipation. - Pt constipation possibly 2/2 side effect of chemotherapy and/or decreased food intake. - Milk of magnesia and Colace ordered PRN for constipation. DVT Prophylaxis: Lovenox 40 mg SC Daily. Disposition: Pending clinical improvement. Dr. Graham called and informed about pt and he instructs to start pt on Neupogen 480 mcg SC Daily. Vital Signs Vital Signs Date Time Temp Pulse Resp B/P (MAP) Pulse Ox O2 Delivery O2 Flow Rate FiO2 09/14/20 12:48 79 98 09/14/20 12:45 106/62 (77) 09/14/20 10:23 97.7 18 Room Air Laboratory Data Labs 24H Laboratory Tests 2 09/14/20 10:00: Immature Granulocyte % (Auto) 6.0H, Neutrophils (%) (Auto) 10.4L, Lymphocytes (%) (Auto) 49.3H, Monocytes (%) (Auto) 16.4H, Eosinophils (%) (Auto) 14.9H, Basophils (%) (Auto) 3.0H, Neutrophils # (Auto) 0.1L, Lymphocytes # (Auto) 0.3L, Monocytes # (Auto) 0.1, Eosinophils # (Auto) 0.1, Basophils # (Auto) 0.0, Nucleated Red Blood Cells % (auto) 0.0, Anion Gap 11, Glomerular Filtration Rate 45.7, Calcium Level 9.3, Total Bilirubin 0.4, Aspartate Amino Transf (AST/SGOT) 15, Alanine Aminotransferase (ALT/SGPT) 28, Alkaline Phosphatase 144H, Total Protein 7.0, Albumin 3.4, Albumin/Globulin Ratio 0.9 CBC/BMP Laboratory Tests 09/14/20 10:00 Microbiology Microbiology 09/14/20 Respiratory Virus Panel (PCR) (TACOS) - Final, Complete 09/14/20 Blood Culture, Received Pending 09/14/20 Blood Culture, Received Pending Home Medications Scheduled Amlodipine Besylate (Amlodipine Besylate) 5 Mg Tablet, 5 MG PO DAILY Aspirin (Ecotrin) 81 Mg Tablet.dr, 81 MG PO DAILY Atorvastatin Calcium (Atorvastatin Calcium) 10 Mg Tablet, 10 MG PO DAILY Finasteride (Finasteride) 5 Mg Tablet, 5 MG PO DAILY Glimepiride (Glimepiride) 1 Mg Tablet, 1 MG PO DAILY Levothyroxine Sodium (Levothyroxine Sodium) 75 Mcg Tablet, 75 MCG PO QHS Lisinopril (Lisinopril) 5 Mg Tablet, 5 MG PO DAILY Metformin HCl (Metformin HCl ER) 500 Mg Tab.er.24h, 500 MG PO BID Multivitamins (Thera M Plus Tablet) 1 Each Tablet, 1 TAB PO DAILY Orcas-3S/Dha/Epa/Fish Oil (Fish Oil EC 1,200 mg Softgel) 1 Each Capsule.dr, 1 CAP PO DAILY Scheduled PRN Acetaminophen (Acetaminophen) 325 Mg Tablet, 325 MG PO Q6H PRN for PAIN Naproxen Sodium (Naproxen Sodium) 220 Mg Capsule, 220 MG PO DAILY PRN for PAIN Ondansetron HCl (Ondansetron HCl) 8 Mg Tablet, 8 MG PO Q6H PRN for NAUSEA OR VOMITING Prochlorperazine Maleate (Prochlorperazine Maleate) 10 Mg Tablet, 10 MG PO Q8HP PRN for NAUSEA OR VOMITING Allergies Coded Allergies: No Known Allergies (Unverified , 02/24/19) A-FIB/CHADSVASC A-FIB History Current/History of A-Fib/PAF?: No GME ATTESTATION GME ATTESTATION My faculty preceptor for this patient encounter was physically present during the encounter and was fully available. All aspects of the patient interview, examination, medical decision making process, and medical care plan development were reviewed and approved by the faculty preceptor. The faculty preceptor is aw are and concurs with the plan as stated in the body of this note and will attest to such by his/her cosignature. ATTENDING NOTE I, Darwin Jerome MD, have independently examined this patient and performed my own physical exam, as well as reviewed the documentation and edited where necessary. I have discussed in detail with the resident / student the findings and plan of treatment as documented by the resident / student and edited their note. I agree with their findings and treatment plan and have edited their documentation. Jolie DAMIAN OMS-3 Sep 14, 2020 14:11 DARWIN JEROME MD Sep 17, 2020 15:01
[2020-09-14] MEDS ORDERED: GLUCOSE 4GM CHEW TABLET PO PRN (16:45)
[2020-09-14] MEDS ORDERED: GLUCAGON INJ 1MG VIAL SC PRN (16:45)
[2020-09-14] MEDS ORDERED: DEXTROSE 50% 50 ML SYRINGE IV PRN (16:45)
[2020-09-14 16:56] VITALS: BP 116/58
[2020-09-14] MEDS: HumaLOG INSULIN (NovoLOG) PER UNIT SC SCH ×2 (17:30→20:39)
[2020-09-14] MEDS: NS 1,000 ML IV SCH (17:58)
--- NOTE | 2020-09-14 17:59 | ECGEPIP ---
[facility] - ED Test Date: 2020-09-14 Pat Name: DANNY RENAE Department: Room: [place] [address] Gender: Male [employer] Supervisor: brittany syed : [id number] Requested By: Velma Dwyer Order Number: [id number] Reading MD: Velma Dwyer Measurements Intervals [place] Rate: 82 P: 35 GA: 176 QRS: -13 QRSD: 80 T: 33 QT: 396 QTc: 462 Interpretive Statements Normal sinus rhythm Low voltage QRS prwp similar 08/13/20 Electronically Signed on 09-14-2020 17:59:41 EDT by Velma Dwyer
[2020-09-14 18:00] VITALS: O2SAT 94
[2020-09-14] MEDS ORDERED: CEFEPIME HCL 2 GM in D5W 50 ML IV SCH (18:00)
[2020-09-14 18:54] VITALS: BP 126/68
[2020-09-14 19:00] VITALS: O2SAT 94
[2020-09-14 20:11] VITALS: BP 120/55
[2020-09-14] MEDS: DOCUSATE SODIUM 100MG CAPSULE PO SCH (20:45)
[2020-09-14] MEDS: LEVOTHYROXINE 75MCG TABLET (0.075MG) PO SCH (20:45)
[2020-09-14] MEDS: CEFEPIME HCL 2 GM in D5W 50 ML IV SCH (20:46)
[2020-09-14 23:24] VITALS: BP 105/59
[2020-09-15] VITALS (15 sets, daily range): BP systolic 99–132; BP diastolic 56–68; O2SAT 92–96
[2020-09-15] MEDS: VANCOMYCIN HCL 750 MG, VIAL MATE ADAPTER 1 EACH in NS 250 ML IV SCH ×2 (05:28→15:50)
[2020-09-15] MEDS: CEFEPIME HCL 2 GM in D5W 50 ML IV SCH ×2 (08:19→21:10)
[2020-09-15] MEDS: ENOXAPARIN 40MG/0.4ML SYRINGE (J1650 PER 10MG) SC SCH (08:20)
[2020-09-15] MEDS: FINASTERIDE 5 MG TAB PO SCH (08:20)
[2020-09-15] MEDS: HumaLOG INSULIN (NovoLOG) PER UNIT SC SCH ×4 (08:21→21:00)
[2020-09-15] MEDS: MULTIVITAMINS/MINERALS THERAP 1 TAB PO SCH (08:21)
[2020-09-15] MEDS: ATORVASTATIN 10 MG TAB PO SCH (08:22)
[2020-09-15] MEDS: DOCUSATE SODIUM 100MG CAPSULE PO SCH ×2 (08:22→21:04)
[2020-09-15] MEDS: NS 1,000 ML IV SCH ×2 (08:31→23:38)
[2020-09-15] MEDS ORDERED: lisinopriL 5 MG TAB PO SCH (09:00)
[2020-09-15] MEDS ORDERED: amLODIPine 5 MG TAB PO SCH (09:00)
--- NOTE | 2020-09-15 11:02 | IPNPDOC ---
Text Note Date of Service The patient was seen on 09/15/20. NOTE Subjective: No acute events overnight. Pt states that he feels "the best I've felt since the past year" this morning. Pt denies any fevers, chills, abd pain, chest pain, or SOB. Pt states that he is still constipated and has not been able to have a BM yet. Objective: VITALS: See below. GENERAL: Pt is sitting comfortably at rest. No acute distress. HEENT: NC/AT. EOMI. Conjunctiva and lids normal. Sclera anicteric. CARDIOVASCULAR: Regular rate and rhythm. Nl S1/S2. No murmurs, rubs, or gallops appreciated. PULMONARY: Lungs clear to auscultation. Good air movement. No wheezes, rales, or rhonchi appreciated. ABD: Abd soft and non-tender to palpation. No guarding or rebound. Normoactive bowel sounds in all four quadrants. EXTREMITIES: No pitting edema to BLE. Clubbing of fingernails b/l. Capillary refills <2 seconds. Skin turgor decreased but improved from yesterday. SKIN: No rashes, lesions, or skin ulcerations appreciated. Area around port appears to be clean, dry, and intact. No erythema or warmth around the port. NEURO: No focal neurological deficits. Imaging: CT Head (09/14/20) Age related atrophy and microvascular ischemic changes. No acute intracranial hemorrhage, infarction, or mass/mass effect. CXR (09/14/20) There are chronic findings as discussed above. There is a right IJ central catheter, unchanged from 08/13/2020. No acute cardiopulmonary findings. 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 Graham) office due to possible seizure and concerns of metastatic brain disease on neutropenic sepsis. Pt had a similar episode in the ED that was observed by the ED physician who states that pt was shaking in all four extremities. Pt remembers these events clearly. Pt admitted for further work up of neutropenia and rigors. #Neutropenia - Pt is currently undergoing chemotherapy for his lung cancer. He receives Navelbine once a week and his last treatment was last week. Navelbine is known to cause neutropenia and this is to be expected. - WBC at the time of admission was 0.7 and remains unchanged today. - Pt is afebrile and reports that he has not felt feverish. However, given that it appears that pt is having rigors, it may be possible that pt may be e xperiencing translocation of bacteria from other areas of his body. - Given that pt has a port and a peripheral IV, he has a chance of these areas being a nidus of infection. Will have port cultured. - Blood culture and urine culture ordered and pending. UA negative. - CXR ruled out any pneumonia. - MRSA PCR screen ordered and pending. - Due to neutropenia, will avoid any invasive procedures such as scopes, catheter placement, or suctioning. - Neutropenic precautions in place. Pt placed on neutropenic diet. - Pt given one dose of IV Ceftriaxone in ED. - Pt started on IV Vancomycin 750 mg (Day #2) and IV Cefepime 2 gm (Day #2). - Will continue to monitor with daily CBC's and vitals. - Dr. Graham has been updated about pt condition. He instructs to start pt on Neupogen 480 mcg SC daily. #Stage IIB Non-Small Cell Carcinoma of R Lung - Pt is being treated for this carcinoma by Dr. Graham. He has gone through trials of Alimta carboplatin and pembrolizumab in March 2019 but that was discontinued due to adverse side effects. He has received 2 doses of Keytruda but that was discontinued due to increased weakness. On Aug 03, 2020 pt was started on Navelbine on a weekly basis. Pt reports that he has received 3 doses of Navelbine thus far. - Pt is scheduled for a PET scan on 10/07/20. - Pt was at Dr. Graham's office today when he experienced these sx and was sent here by oncologist office. - Dr. Graham has been called and updated on pt case. Will have pt continue with outpatient follow up as scheduled. - Zofran 8 mg Q6H PO PRN ordered for nausea or vomiting 2/2 chemotherapy. #Hypotension - Pt has a hx of HTN however, he is hypotensive in the ED (lowest BP of 77/50). Appears resolved after fluid resuscitation. Pt BP up to 132/68 this morning. - Given that on physical exam pt had dry mucous membranes, decreased skin turgor, and increased capillary refills along with his reports of decreased oral intake, it is suspected that this hypotension is 2/2 dehydration. Pt states that he has been drinking 4-5 glasses of water a day. - Continuing IV fluids at 75 mls/hr. - Although pt BP has increased to 132/68 today. However, due to pt recent hypotension, will continue to hold BP meds for today unless pt BP becomes even more elevated. - Will continue to monitor BP's. #Hx of hypertension - Pt has hx of HTN but has been hypotensive. See above. - Will hold Amlodipine and Lisinopril. Hypotensive parameters have been placed to these medications. - Due to pt recent hypotension, will continue to hold BP meds today unless BP becomes even more elevated. #DMT2 - Consistent carb diet. - Sliding scale insulin with hypoglycemic protocol. #CKD Stage III - Pt BUN 15 and Creatinine is 1.57 at the time of admission. - Pt creatinine is at baseline. - Will continue to monitor. #Hypothyroidism - Continue home medication of Levothyroxine 75 mcg QHS PO. #Hyperlipidemia - Continue home medication Atorvastatin 10 mg PO Daily. #Constipation - Pt is on Navelbine for chemotherapy. A side effect of Navelbine is constipation. - Pt constipation possibly 2/2 side effect of chemotherapy and/or decreased food intake. - Milk of magnesia and Colace ordered PRN for constipation. - Dulcolax ordered for pt as needed for constipation. DVT Prophylaxis: Lovenox 40 mg SC Daily. Disposition: Pending culture results and clinical improvement. Pt started on Neupogen 480 mcg SC daily yesterday. Will continue to monitor. VS,Fishbone, I+O VS, Fishbone, I+O Laboratory Tests 09/14/20 10:00 Vital Signs Date Time Temp Pulse Resp B/P (MAP) Pulse Ox O2 Delivery O2 Flow Rate FiO2 09/15/20 07:10 97.8 81 18 132/68 (89) 97 Room Air I&O- Last 24 Hours up to 6 AM 09/15/20 05:59 Intake Total 4980 ml Balance 4980 ml GME ATTESTATION GME ATTESTATION My faculty preceptor for this patient encounter was physically present during the encounter and was fully available. All aspects of the patient interview, examination, medical decision making process, and medical care plan development were reviewed and approved by the faculty preceptor. The faculty preceptor is aware and concurs with the plan as stated in the body of this note and will attest to such by his/her cosignature. ATTENDING NOTE I, Darwin Lawler MD, have independently examined this patient and performed my own physical exam, as well as reviewed the documentation and edited where necessary. I have discussed in detail with the resident / student the findings and plan of treatment as documented by the resident / student and edited their note. I agree with their findings and treatment plan and have edited their documentation. Jolie DAMIAN OMS-3 Sep 15, 2020 09:11 DARWIN LAWLER MD Sep 17, 2020 15:06
[2020-09-15 11:24] LABS: BASO % 4.4 % (0.0-1.0); EOS # 0.1 10^3/uL (0.0-0.5); EOS % 10.3 % (0.0-3.0); HEMATOCRIT 32.7 % (42.0-52.0); HEMOGLOBIN 10.9 g/dl (13.5-17.5); LYMPH # 0.3 10^3/uL (1.5-5.0); LYMPH % 47.1 % (24.0-44.0); MEAN CORPUSCULAR HEMOGLOBIN 33.2 pg (27.0-33.0); MEAN CORPUSCULAR HGB CONC 33.3 g/dl (32.0-36.5); MEAN CORPUSCULAR VOLUME 99.7 fl (80.0-96.0); MONO # 0.2 10^3/uL (0.0-0.8); MONO % 23.5 % (2.0-8.0); NEUTROPHILS % 14.7 % (36.0-66.0); PLATELET COUNT, AUTOMATED 472 10^3/uL (150-450); RED BLOOD COUNT 3.28 10^6/uL (4.30-6.10)
[2020-09-15 11:26] LABS: NEUTROPHILS # 0.1 10^3/uL (1.5-8.5); WHITE BLOOD COUNT 0.7 10^3/uL (4.0-10.0)
[2020-09-15 11:35] LABS: BLOOD UREA NITROGEN 11 MG/DL (7-18); CALCIUM LEVEL 8.5 MG/DL (8.8-10.2); CARBON DIOXIDE LEVEL 25 MEQ/L (21-32); CHLORIDE LEVEL 109 MEQ/L (98-107); CREATININE FOR GFR 1.18 MG/DL (0.70-1.30); GLOMERULAR FILTRATION RATE > 60.0 (>42); GLUCOSE, FASTING 99 MG/DL (70-100); POTASSIUM SERUM 4.4 MEQ/L (3.5-5.1); SODIUM LEVEL 139 MEQ/L (136-145)
[2020-09-15] MEDS: FILGRASTIM 480 MCG/0.8 ML SYRINGE (J1442) SC SCH (12:41)
[2020-09-15] MEDS: BISACODYL 5 MG TAB PO SCH (12:41)
[2020-09-15] MEDS: LEVOTHYROXINE 75MCG TABLET (0.075MG) PO SCH (21:04)
[2020-09-16] VITALS (23 sets, daily range): BP systolic 110–157; BP diastolic 45–78; O2SAT 89–96
[2020-09-16] MEDS: NS 1,000 ML IV SCH (04:53)
[2020-09-16] MEDS: VANCOMYCIN HCL 750 MG, VIAL MATE ADAPTER 1 EACH in NS 250 ML IV SCH (04:53)
[2020-09-16 05:45] LABS: HEMATOCRIT 30.8 % (42.0-52.0); MEAN CORPUSCULAR HEMOGLOBIN 32.4 pg (27.0-33.0); MEAN CORPUSCULAR HGB CONC 32.5 g/dl (32.0-36.5); MEAN CORPUSCULAR VOLUME 99.7 fl (80.0-96.0); PLATELET COUNT, AUTOMATED 489 10^3/uL (150-450); RED BLOOD COUNT 3.09 10^6/uL (4.30-6.10); WHITE BLOOD COUNT 1.2 10^3/uL (4.0-10.0)
[2020-09-16 06:05] LABS: BLOOD UREA NITROGEN 7 MG/DL (7-18); CALCIUM LEVEL 8.2 MG/DL (8.8-10.2); CARBON DIOXIDE LEVEL 30 MEQ/L (21-32); CHLORIDE LEVEL 108 MEQ/L (98-107); CREATININE FOR GFR 1.08 MG/DL (0.70-1.30); GLOMERULAR FILTRATION RATE > 60.0 (>42); GLUCOSE, FASTING 106 MG/DL (70-100); MAGNESIUM LEVEL 1.7 MG/DL (1.8-2.4); POTASSIUM SERUM 4.2 MEQ/L (3.5-5.1); SODIUM LEVEL 141 MEQ/L (136-145)
[2020-09-16 06:06] LABS: ATYPICAL LYMPH 1 % (0-5); BASOPHILS 6 % (0-1); EOSINOPHILS 5 % (0-3); LYMPHOCYTES 56 % (16-44); METAMYELOCYTES 2 % (0-0); MONOCYTES 4 % (0-5); MYELOCYTES 1 % (0-0); NEUTROPHILS 18 % (28-66); PLATELET ESTIMATE INCREASED (NORMAL)
[2020-09-16] MEDS: HumaLOG INSULIN (NovoLOG) PER UNIT SC SCH ×4 (07:18→21:00)
[2020-09-16] MEDS: lisinopriL 5 MG TAB PO SCH (08:06)
[2020-09-16] MEDS: amLODIPine 5 MG TAB PO SCH (08:06)
[2020-09-16] MEDS: CEFEPIME HCL 2 GM in D5W 50 ML IV SCH ×2 (08:12→19:52)
[2020-09-16] MEDS: DOCUSATE SODIUM 100MG CAPSULE PO SCH (08:48)
[2020-09-16] MEDS: BISACODYL 5 MG TAB PO SCH (08:48)
[2020-09-16] MEDS: MULTIVITAMINS/MINERALS THERAP 1 TAB PO SCH (08:48)
[2020-09-16] MEDS: FINASTERIDE 5 MG TAB PO SCH (08:48)
[2020-09-16] MEDS: ATORVASTATIN 10 MG TAB PO SCH (08:48)
[2020-09-16] MEDS: ENOXAPARIN 40MG/0.4ML SYRINGE (J1650 PER 10MG) SC SCH (08:49)
[2020-09-16] MEDS: FILGRASTIM 480 MCG/0.8 ML SYRINGE (J1442) SC SCH (08:49)
--- NOTE | 2020-09-16 09:01 | IPNPDOC ---
Text Note Date of Service The patient was seen on 09/16/20. NOTE Subjective: Pt states that he had another episode of rigors around 6 am this morning. He reports that he suddenly felt cold, weak, and short of breath when he had the episode of rigors. He states that he was conscious during this episode and remembers it happening but is unsure of the duration but believes it may have been 15-20 minutes. He states that he also has generalized fatigue and weakness that he noticed when he went to the restroom this morning. Pt admits to headache currently. He states that he has been having some abdominal cramping and bloating due to constipation. He received Dulcolax yesterday but has not had a BM yet. He has been passing flatus. Reports that he has been eating and drinking without difficulty. Denies any CP, current SOB, cough, congestion, or fevers. Objective: VITALS: See below. GENERAL: Pt is laying in bed, sleeping when I entered the room. No acute distress. HEENT: NC/AT. EOMI. Conjunctiva and lids normal. Sclera anicteric. CARDIOVASCULAR: Regular rate and rhythm. Nl S1/S2. No murmurs, rubs, or gallops appreciated. PULMONARY: Lungs clear to auscultation. Good air movement. No wheezes, rales, or rhonchi appreciated. ABD: Abd appears distended. No tenderness to palpation. No guarding or rebound. Normoactive bowel sounds in all four quadrants. EXTREMITIES: No pitting edema to BLE. Clubbing of fingernails b/l. NEURO: No focal neurological deficits. Imaging: CT Head (09/14/20) Age related atrophy and microvascular ischemic changes. No acute intracranial hemorrhage, infarction, or mass/mass effect. CXR (09/14/20) There are chronic findings as discussed above. There is a right IJ central catheter, unchanged from 08/13/2020. No acute cardiopulmonary findings. 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 Graham) office due to possible seizure and concerns of metastatic brain disease on neutropenic sepsis. Pt had a similar episode in the ED that was observed by the ED physician who states that pt was shaking in all four extremities. Pt remembers these events clearly. Pt admitted for further work up of neutropenia and rigors. #Neutropenia - Pt is currently undergoing chemotherapy for his lung cancer. He receives Navelbine once a week and his last treatment was last week. Navelbine is known to cause neutropenia and this is to be expected. Pt has been afebrile since the time of admission and denies any upper respiratory symptoms. He experienced another episode of rigors. - WBC at the time of admission was 0.7 and has increased to 1.2 today after 2 injections of Neupogen (as per Dr. Graham, oncologist, recommendation). - Given that pt has a port and a peripheral IV, he has a chance of these areas being a nidus of infection. Port has been cultured and preliminary results show no growth after 24 hours. - Blood culture preliminary results show no growth after 24 hours. UA was negative and urine culture is pending. CXR ruled out any pneumonia. MRSA PCR screen is negative. - Due to neutropenia, will avoid any invasive procedures such as scopes, catheter placement, or suctioning. - Neutropenic precautions in place. Pt placed on neutropenic diet. - Pt given one dose of IV Ceftriaxone in ED. - Continue IV Cefepime 2 gm (currently day #3). Will discontinue IV Vancomycin (pt given two days of IV Vancomycin) as pt MRSA screen and cultures have resulted with no growth thus far. - Continue Neupogen 480 mcg SC daily (currently day #3). - Will continue to monitor with daily CBC's and vitals. #Rigors - Pt has had two episodes of rigors during this admission. He states that he feels cold and starts shaking when these episodes occur. - Pt has been afebrile, MRSA negative, blood and port cultures have shown no shaka wth thus far so an infectious cause of these rigors is lower on our differential list. - Given that pt has metastatic carcinoma, we are concerned about mets to the brain causing a thermoregulatory disorder causing his rigors. - Will MRI brain for further evaluation as CT head returned inconclusive. #Stage IIB Non-Small Cell Carcinoma of R Lung - Pt is being treated for this carcinoma by Dr. Graham. He has gone through trials of Alimta carboplatin and pembrolizumab in March 2019 but that was discontinued due to adverse side effects. He has received 2 doses of Keytruda but that was discontinued due to increased weakness. On Aug 03, 2020 pt was started on Navelbine on a weekly basis. Pt reports that he has received 3 doses of Navelbine thus far. - Pt is scheduled for a PET scan on 10/07/20. - Dr. Graham has been called and updated on pt case. Will have pt continue with outpatient follow up as scheduled. - Zofran 8 mg Q6H PO PRN ordered for nausea or vomiting 2/2 chemotherapy. #Constipation - Pt is on Navelbine for chemotherapy. A side effect of Navelbine is constipation. - Pt constipation possibly 2/2 side effect of chemotherapy and/or decreased food intake. - Milk of magnesia and Colace ordered PRN for constipation. - Dulcolax ordered for pt as needed for constipation. Pt given dose yesterday. - Pt continues to complain of constipation and has not had a bowel movement sinc e admission. He has been passing flatus. Will order laxative in addition to above stool softeners. #Hypotension - Pt has a hx of HTN however, he is hypotensive in the ED (lowest BP of 77/50). Appears resolved after fluid resuscitation. Pt BP up to 116/58 this morning. - Continuing IV fluids at 75 mls/hr. - Pt home BP meds ordered but have holding parameters for SBP <130. - Will continue to monitor BP's. #Hx of hypertension - Pt has hx of HTN but has been hypotensive. See above. - Hypotensive parameters have been placed to these medications for SBP <130. #DMT2 - Consistent carb diet. - Sliding scale insulin with hypoglycemic protocol. #CKD Stage III - Pt BUN 15 and Creatinine is 1.57 at the time of admission. Today BUN is 7 and creatinine is 1.08. - Pt creatinine is at baseline. - Will continue to monitor. #Hypothyroidism - Continue home medication of Levothyroxine 75 mcg QHS PO. #Hyperlipidemia - Continue home medication Atorvastatin 10 mg PO Daily. DVT Prophylaxis: Lovenox 40 mg SC Daily. Disposition: Preliminary blood and port cultures have returned with not growth after 24 hours. MRI brain has been ordered to rule out mets that may be causing a thermoregulatory disorder. Discharge pending clinical improvement. Pt started on Neupogen 480 mcg SC daily two days ago. Will continue to monitor. VS,Fishbone, I+O VS, Fishbone, I+O Laboratory Tests 09/15/20 10:47 09/16/20 04:54 Vital Signs Date Time Temp Pulse Resp B/P (MAP) Pulse Ox O2 Delivery O2 Flow Rate FiO2 09/16/20 07:18 98.5 77 18 116/58 (77) 99 Room Air I&O- Last 24 Hours up to 6 AM 09/16/20 06:00 Intake Total 2275 ml Balance 2275 ml GME ATTESTATION GME ATTESTATION My faculty preceptor for this patient encounter was physically present during the encounter and was fully available. All aspects of the patient interview, examination, medical decision making process, and medical care plan development were reviewed and approved by the faculty preceptor. The faculty preceptor is aware and concurs with the plan as stated in the body of this note and will attest to such by his/her cosignature. ATTENDING NOTE I, Darwin Lawler MD, have independently examined this patient and performed my own physical exam, as well as reviewed the documentation and edited where necessary. I have discussed in detail with the resident / student the findings and plan of treatment as documented by the resident / student and edited their note. I agree with their findings and treatment plan and have edited their do cumentation. Jolie DAMIAN OMS-3 Sep 16, 2020 09:01 DARWIN LAWLER MD Sep 17, 2020 15:10
[2020-09-16] MEDS: ACETAMINOPHEN TAB 650MG DOSE (2X325MG) PO PRN ×2 (12:24→22:21)
[2020-09-16] MEDS ORDERED: SIMETHICONE 80MG CHEW TAB PO PRN (12:45)
[2020-09-16] MEDS ORDERED: diazePAM 10MG/2ML SYRINGE (J3360 PER 5MG) IM ONE (13:00)
[2020-09-16] MEDS ORDERED: SODIUM CHLORIDE 0.9% INJ 10 ML SYR IV PRN (16:25)
[2020-09-16] MEDS ORDERED: SENOKOT S TAB PO PRN (21:00)
[2020-09-16] MEDS: LEVOTHYROXINE 75MCG TABLET (0.075MG) PO SCH (21:09)
[2020-09-17] VITALS (16 sets, daily range): BP systolic 116–136; BP diastolic 63–77; O2SAT 85–97
[2020-09-17 05:32] LABS: HEMATOCRIT 30.9 % (42.0-52.0); HEMOGLOBIN 10.2 g/dl (13.5-17.5); MEAN CORPUSCULAR HEMOGLOBIN 32.7 pg (27.0-33.0); PLATELET COUNT, AUTOMATED 475 10^3/uL (150-450); RED BLOOD COUNT 3.12 10^6/uL (4.30-6.10); WHITE BLOOD COUNT 4.2 10^3/uL (4.0-10.0)
[2020-09-17 05:56] LABS: BLOOD UREA NITROGEN 8 MG/DL (7-18); CALCIUM LEVEL 8.4 MG/DL (8.8-10.2); CARBON DIOXIDE LEVEL 29 MEQ/L (21-32); CHLORIDE LEVEL 106 MEQ/L (98-107); CREATININE FOR GFR 1.11 MG/DL (0.70-1.30); GLOMERULAR FILTRATION RATE > 60.0 (>42); GLUCOSE, FASTING 94 MG/DL (70-100); MAGNESIUM LEVEL 1.9 MG/DL (1.8-2.4); POTASSIUM SERUM 4.3 MEQ/L (3.5-5.1); SODIUM LEVEL 140 MEQ/L (136-145)
[2020-09-17 05:58] LABS: ATYPICAL LYMPH 7 % (0-5); BASOPHILS 2 % (0-1); EOSINOPHILS 5 % (0-3); LYMPHOCYTES 19 % (16-44); METAMYELOCYTES 6 % (0-0); MONOCYTES 13 % (0-5); NEUTROPHILS 37 % (28-66); PROMYELOCYTES 1 % (0-0)
[2020-09-17 05:59] LABS: PLATELET CLUMPS SMALL AMT; PLATELET ESTIMATE INCREASED (NORMAL)
[2020-09-17 06:00] LABS: DOHLE BODIES 1+; POLYCHROMASIA 1+
[2020-09-17] MEDS ORDERED: diazePAM 10MG/2ML SYRINGE (J3360 PER 5MG) IV SCH (06:30)
[2020-09-17] MEDS: HumaLOG INSULIN (NovoLOG) PER UNIT SC SCH ×3 (07:30→17:30)
[2020-09-17] MEDS: CEFEPIME HCL 2 GM in D5W 50 ML IV SCH (08:52)
[2020-09-17] MEDS: ENOXAPARIN 40MG/0.4ML SYRINGE (J1650 PER 10MG) SC SCH (08:53)
[2020-09-17] MEDS: MULTIVITAMINS/MINERALS THERAP 1 TAB PO SCH (08:53)
[2020-09-17] MEDS: FINASTERIDE 5 MG TAB PO SCH (08:53)
[2020-09-17] MEDS: BISACODYL 5 MG TAB PO SCH (08:54)
[2020-09-17] MEDS: amLODIPine 5 MG TAB PO SCH (08:54)
[2020-09-17] MEDS: ATORVASTATIN 10 MG TAB PO SCH (08:54)
[2020-09-17] MEDS: lisinopriL 5 MG TAB PO SCH (08:55)
[2020-09-17] MEDS ORDERED: SODIUM CHLORIDE 0.9% INJ 10 ML SYR IV SCH (09:00)
[2020-09-17] MEDS: FILGRASTIM 480 MCG/0.8 ML SYRINGE (J1442) SC SCH (09:42)
--- NOTE | 2020-09-17 13:30 | DS.PDOC ---
Discharge Summary General Date of Admission Sep 14, 2020 at 14:52 Date of Discharge Sep 17, 2020. Attending Physician: DARWIN JEROME MD Discharge Summary PROCEDURES PERFORMED DURING STAY: None. ADMITTING DIAGNOSES: 1. Neutropenia. 2. Stage IIB Non-Small Cell Carcinoma of R Lung. 3. Hypotension. 4. Hx of Hypertension. 5. DMT2. 6. CKD Stage III. 7. Hypothyroidism. 8. Hyperlipidemia. 9. Constipation. DISCHARGE DIAGNOSES: 1. Neutropenia. 2. Rigors. 3. Stage IIB Non-Small Cell Carcinoma of R Lung. 4. Constipation. 5. Hypotension. 6. Hx of Hypertension. 7. DMT2. 8. CKD Stage III. 9. Hypothyroidism. 10. Hyperlipidemia. COMPLICATIONS/CHIEF COMPLAINT: Neutropenia. HISTORY OF PRESENT ILLNESS: Pt is a 79 year old male with PMH of stage IIB non-small cell carcinoma of R lung, COPD, DMT2, HTN, CKD stage III, spinal stenosis who presented to the ED from the oncologist (Dr. Graham) office due to possible seizure and concerns of metastatic brain disease on neutropenic sepsis. Pt was scheduled to receive his next dose of Navelbine on the day of admission. Pt reports that he suddenly felt cold, dizzy, and lightheaded when he started "shaking all over, in my arms and legs". He states that he remembers the events clearly and did not lose consciousness. Pt states that he had a similar episode of feeling cold, dizzy, and lightheaded the night prior to presentation. He states that he felt weak at that time but did not have any similar events of shaking. Pt states that he felt well the morning of presentation. While in the ER, pt had a similar episode that was witnessed by the ED physician who states that pt was having rigors all over, in all four extremities. Denies any hx of similar sx or seizures. Pt reports that he has had decreased appetite but has been drinking 4-5 glasses of water a day. Admits to constipation due to decreased intake, last BM 3 days ago. Pt states that he has had leg pain bilaterally that was worsened yesterday. Denies any N/V/D, SOB, CP, dizziness, visual changes, fever, chills, headache, diaphoresis, or LOC. Denies noticing any ulcerations, lesions, or scratches to skin. In the ED, pt was given a dose of IV Ceftriaxone as well as a bolus of IV NS. Pt is currently seeing Dr. Graham for treatment of his non-small cell carcinoma of R lung. Pt reports that he believes he was diagnosed 2 years ago. He has a port in place and states that he had the port placed 3-4 weeks ago. His last chemo treatment was one week ago and has been started on Navelbine on a weekly basis starting 08/03/20. Pt reports having received 3 chemo treatments thus far. He states that he finished radiation in June and is scheduled for PET scan on 10/07/20. HOSPITAL COURSE: Pt was started on IV Vancomycin and IV Cefepime on the day of admission. Dr. Graham was called and notified of pt status and he instructed to start pt on Neupogen 480 mcg SC daily. Subsequently pt WBC increased to 1.2 on third hospital day and 4.2 on fourth hospital day. In the ED pt had CT head and CXR done that resulted in no acute findings. UA, port culture, and blood culture returned with no growth and MRSA was negative so his Vancomycin was discontinued after two days. On his third hospital day pt had two more episodes of rigors. Due to low suspicion of an infectious etiology as a cause of rigors an MRI was ordered to rule out mets to the brain that may be causing a thermoregulatory disorder. However, due to issues with MRI scheduling while pt was admitted it was unable to be performed therefore pt will be discharged home and have follow up with Dr. Graham to have MRI done outpatient. Pt was hypotensive on admission and pt reported decreased oral intake due to decreased appetite. Pt was given a bolus of IV fluids in the ED and that brought pt BP back up. Pt was kept on fluid resuscitation throughout his stay and pt BP remained stable around 120/60-70. In regards to pt complaint of constipation despite receiving Colace and Dulcolax so he was started on Docusate Sod/Senna which relieved his constipation. On pt last day of hospital stay, he was placed on 2 L O2 nasal cannula due to dropping of O2 sats into the high 80's. Pt RN reports that pt has hx of ANDREAS and is non-compliant on supplemental nocturnal oxygen at home. Pt O2 sats were back up to >95% after overnight O2 so O2 was discontinued in the morning and pt did well on room air. DISCHARGE MEDICATIONS: Please see below. ALLERGIES: Please see below. PHYSICAL EXAMINATION ON DISCHARGE: VITAL SIGNS: Please see below. GENERAL: Pt is laying in bed comfortably at rest. No acute distress. HEENT: NC/AT. EOMI. Conjunctiva and lids normal. No scleral icterus. CARDIOVASCULAR EXAMINATION: Regular rate and rhythm. No murmurs, rubs, or gallops appreciated. RESPIRATORY EXAMINATION: Lungs clear to auscultation. No wheezes, rales, or rhonchi appreciated bilaterally. ABDOMINAL EXAMINATION: Abdomen is soft and non-tender to palpation. No guarding or rebound. Normoactive bowel sounds in all four quadrants. EXTREMITIES: No pitting edema to BLE. Clubbing of fingernails b/l. NEUROLOGICAL EXAMINATION: No focal neurologic deficits appreciated. LABORATORY DATA: Please see below. IMAGING: CT Head (09/14/20) Age related atrophy and microvascular ischemic changes. No acute intracranial hemorrhage, infarction, or mass/mass effect. CXR (09/14/20) There are chronic findings as discussed above. There is a right IJ central catheter, unchanged from 08/13/2020. No acute cardiopulmonary findings. PROGNOSIS: Fair. ACTIVITY: As tolerated. DIET: Neutropenic diet. DISCHARGE PLAN: Discharge home. DISCHARGE INSTRUCTIONS: 1. Follow up with Dr. Graham outpatient as scheduled. 2. Follow up with your PCP in 3-5 days. 3. Continue home medications as prescribed. 4. Please follow up with Dr. Graham to have MRI scheduled/done outpatient. 5. Return to ER if sx worsen or return. ITEMS TO FOLLOWUP ON ON OUTPATIENT: 1. Follow up with Dr. Graham outpatient as scheduled. 2. Please follow up with Dr. Graham to have MRI done. DISCHARGE CONDITION: Stable. TIME SPENT ON DISCHARGE: Greater than 35 minutes. CC: Dr. Aidan Graham Vital Signs/I&Os Vital Signs Date Time Temp Pulse Resp B/P (MAP) Pulse Ox O2 Delivery O2 Flow Rate FiO2 09/17/20 08:55 116/71 09/17/20 08:54 82 09/17/20 08:00 97.5 16 95 Nasal Cannula 2.0 I&O- Last 24 Hours up to 6 AM 09/17/20 06:00 Intake Total 1180 ml Output Total 0 ml Balance 1180 ml Laboratory Data Labs 24H Laboratory Tests 2 09/16/20 16:11: Bedside Glucose (Misc Panel) 124H 09/16/20 19:51: Bedside Glucose (Misc Panel) 97 09/17/20 05:15: Immature Granulocyte % (Auto) , Neutrophils (%) (Auto) , Neutrophils # (Auto) , Nucleated Red Blood Cells % (auto) 3.6H, Neutrophils 37, Band Neutrophils 10, Lymphocytes (Manual) 19, Monocytes (Manual) 13H, Eosinophils (Manual) 5H, Basophils (Manual) 2H, Metamyelocytes 6H, Promyelocytes 1H, Atypical Lymphocytes 7H, Polychromasia 1+, Macrocytosis 1+, Dohle Bodies 1+, Platelet Estimate INCREASED, Clumped Platelets SMALL AMT, Anion Gap 5L, Glomerular Filtration Rate > 60.0, Calcium Level 8.4L, Magnesium Level 1.9 09/17/20 12:03: Bedside Glucose (Misc Panel) 154H CBC/BMP Laboratory Tests 09/17/20 05:15 FSBS Laboratory Tests Test 09/16/20 16:11 09/16/20 19:51 09/17/20 12:03 Range/Units Bedside Glucose (Misc Panel) 124 97 154 83-110 MG/DL Microbiology Microbiology 09/14/20 Blood Culture - Preliminary, Resulted No Growth after 48 hours. All Specime... 09/14/20 Blood Culture - Preliminary, Resulted No Growth after 48 hours. All Specime... 09/14/20 Respiratory Virus Panel (PCR) (TACOS) - Final, Complete 09/14/20 Blood Culture - Preliminary, Resulted No Growth after 72 hours. All specime... 09/14/20 Blood Culture - Preliminary, Resulted No Growth after 72 hours. All specime... Discharge Medications Scheduled Amlodipine Besylate (Amlodipine Besylate) 5 Mg Tablet, 5 MG PO DAILY, (Reported) Aspirin (Ecotrin) 81 Mg Tablet.dr, 81 MG PO DAILY, (Reported) Atorvastatin Calcium (Atorvastatin Calcium) 10 Mg Tablet, 10 MG PO DAILY, (Reported) Finasteride (Finasteride) 5 Mg Tablet, 5 MG PO DAILY, (Reported) Glimepiride (Glimepiride) 1 Mg Tablet, 1 MG PO DAILY, (Reported) Levothyroxine Sodium (Levothyroxine Sodium) 75 Mcg Tablet, 75 MCG PO QHS, (Reported) Lisinopril (Lisinopril) 5 Mg Tablet, 5 MG PO DAILY, (Reported) Metformin HCl (Metformin HCl ER) 500 Mg Tab.er.24h, 500 MG PO BID, (Reported) Multivitamins (Thera M Plus Tablet) 1 Each Tablet, 1 TAB PO DAILY, (Reported) [place]-3S/Dha/Epa/Fish Oil (Fish Oil EC 1,200 mg Softgel) 1 Each Capsule.dr, 1 CA P PO DAILY Scheduled PRN Acetaminophen (Acetaminophen) 325 Mg Tablet, 325 MG PO Q6H PRN for PAIN, (Reported) Naproxen Sodium (Naproxen Sodium) 220 Mg Capsule, 220 MG PO DAILY PRN for PAIN, (Reported) Ondansetron HCl (Ondansetron HCl) 8 Mg Tablet, 8 MG PO Q6H PRN for NAUSEA OR VOMITING Prochlorperazine Maleate (Prochlorperazine Maleate) 10 Mg Tablet, 10 MG PO Q8HP PRN for NAUSEA OR VOMITING Allergies Coded Allergies: No Known Allergies (Unverified , 02/24/19) GME ATTESTATION GME ATTESTATION My faculty preceptor for this patient encounter was physically present during the encounter and was fully available. All aspects of the patient interview, examination, medical decision making process, and medical care plan development were reviewed and approved by the faculty preceptor. The faculty preceptor is aware and concurs with the plan as stated in the body of this note and will attest to such by his/her cosignature. ATTENDING NOTE I, Darwin Jerome MD, have independently examined this patient and performed my own physical exam, as well as reviewed the documentation and edited where necessary. I have discussed in detail with the resident / student the findings and plan of treatment as documented by the resident / student and edited their note. I agree with their findings and treatment plan and have edited their documentation. Total time spent on this patient including coordination of care, review of chart documentation and actual patient contact is around 35 minutes Jolie DAMIAN OMS-3 Sep 17, 2020 13:30 DARWIN JEROME MD Sep 17, 2020 15:22
[2020-09-17] MEDS ORDERED: PROHANCE 279.3MG/ML 5ML VIAL As Ordered ONE (15:07)
[2020-09-17] MEDS ORDERED: PROHANCE 279.3MG/ML 15ML VIAL As Ordered ONE (15:07)
--- NOTE | 2020-09-17 16:39 | REP ---
INDICATION: h/o of NSCLC,concern for mets due to thermogeratory disorder. COMPARISON: None. TECHNIQUE: Axial T1, T2, FLAIR, diffusion weighted images obtained. Multiplanar T1 post gadolinium images are obtained. FINDINGS: No evidence of restricted diffusion to suggest acute infarction. No gradient echo susceptibility to suggest hemorrhage. The ventricles and extra-axial CSF spaces are within normal limits. No mass effect or midline shift. No abnormal fluid collections. Following contrast, no definite abnormal enhancement. IMPRESSION: No acute findings. No evidence of mass lesion or abnormal enhancement to suggest metastatic disease to brain or calvarium. <Electronically signed by Earl Black > 09/17/20 [id number]
== END 2020-09-17 18:56 | disposition home or self-care (01) | DRG 809 ==
LOC: M ED 09:53 → M ED INP 14:52 → ENRESERV 15:45 → M PCU 17:32
PROVIDERS: ADMIT Internal Medicine; ATTEND Internal Medicine
DX: D70.9 Neutropenia, unspecified (principal); C34.91 Malignant neoplasm of unspecified part of right bronchus or lung; J44.9 Chronic obstructive pulmonary disease, unspecified; E11.22 Type 2 diabetes mellitus with diabetic chronic kidney disease; I12.9 Hypertensive chronic kidney disease with stage 1 through stage 4 chronic kidney disease, or unspecified chronic kidney disease; N18.30 Chronic kidney disease, stage 3 unspecified; I95.9 Hypotension, unspecified; E78.5 Hyperlipidemia, unspecified; R56.9 Unspecified convulsions; K59.03 Drug induced constipation; Z66 Do not resuscitate; G47.419 Narcolepsy without cataplexy; T45.1X5A Adverse effect of antineoplastic and immunosuppressive drugs, initial encounter; Z87.891 Personal history of nicotine dependence; Z79.82 Long term (current) use of aspirin; Z79.84 Long term (current) use of oral hypoglycemic drugs; Z79.899 Other long term (current) drug therapy; Z95.828 Presence of other vascular implants and grafts

== ENCOUNTER → 2020-10-04 | Outpatient (CLI) | payer MEDICARE ==
[~2020-10-04] MED LIST changes: -ACET-908 PO; +ACET-910 PO; +SYNT100T PO
--- NOTE | 2020-10-04 12:08 | REP ---
INDICATION: RESTAGING RUL LUNG CANCER C34.31. COMPARISON: Comparison PET-CT studies September 01, 2019 and October 23, 2018.. TECHNIQUE: Fifty-two minutes following the intravenous injection of a 16.04 mCi dose of F-18 FDG, three-dimensional PET scintigraphy is acquired from the skull base to the proximal thighs. Triplanar noncontrast CT scanning is acquired through the same anatomic range for attenuation correction, and image registration with scan parameters optimized to minimize radiation exposure to the patient. PET scintigraphy and CT datasets were fused and displayed on a workstation with multiplanar and projection display capability. FINDINGS: Head and neck soft tissues are unremarkable. There is hypermetabolic right hilar lymphadenopathy. Maximum standard uptake value in this jo-ann focus is 13.07. No other hilar or mediastinal focus of hypermetabolic uptake is seen. No pulmonary parenchymal focus of hypermetabolic uptake is seen. There is however hypermetabolic focus in the right 1st anterior rib/costochondral junction. No definite lytic changes seen but maximum standard uptake value here is 14.46 and a skeletal metastatic focus cannot be excluded. No other abnormal skeletal uptake is seen. There are 3 new foci of hypermetabolic uptake at near the dome of the liver. These appear to be hepatic rather than pleural based lesions. Maximum standard uptake value in these range from 6.24-11.03. There is 1 additional suspicious focus of hypermetabolic uptake in the posterior segment of the more inferior liver on the right with maximum standard uptake value 5.92. 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 Maximum standard uptake value in this left adrenal metastatic mass is 31.9. No other abnormal uptake is seen in the abdomen or pelvis. 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 There is hypermetabolic adenopathy in the right hilus. <Electronically signed by Buck Ramriez > 10/04/20 [id number]
== END ==
LOC: M PLARAD 07:36
PROVIDERS: ATTEND General Practice
DX: C34.31 Malignant neoplasm of lower lobe, right bronchus or lung (principal)
CPT/HCPCS: 78815; A9552